=== PATIENT | female | born 1945 | race Caucasian/White ===

== ENCOUNTER 2017-12-09 12:31 | Emergency (ER) | payer MEDICARE ==
[~2017-12-09] VITALS: Ht 160 cm; Wt 87.1 kg
== END 2017-12-09 12:56 | disposition home or self-care (01) ==
LOC: FSED 12:31
DX: R39.15 Urgency of urination (principal); N30.90 Cystitis, unspecified without hematuria
CPT/HCPCS: 81003; 87086; 99283

== ENCOUNTER → 2018-03-12 | Outpatient (CLI) | payer MEDICARE, OTHER ==
--- NOTE | 2018-03-12 15:16 | Diagnostic Imaging Report ---
EXAMINATION: MRI of the lumbar spine without contrast HISTORY: Low back pain radiating to the right lower extremity for several weeks, status post fall COMPARISON: None. TECHNIQUE: Sagittal T1, T2, STIR; axial T2 and proton density. FINDINGS: It is assumed that there are 5 lumbar vertebrae. Curvature/Alignment: Normal lordosis. Subtle left-sided curvature. Vertebrae: No evidence of recent fracture, infection, or neoplasm. Chronic endplate degenerative changes from L1 to S1. Modic type I endplate degenerative changes with bone marrow edema on the right side at L3-L4. Conus: Normal, terminating at L1 Cauda equina: Circumferential narrowing of the thecal sac/cauda equina nerve roots at L3-L4 due to spinal stenosis. Lower thoracic: Mild degenerative changes without stenoses Paraspinal soft tissues: Severe atrophy of the paraspinal folds mainly from L2 through sacrum. Degenerative changes: L1-L2: Mild symmetric disc bulge and facet arthrosis. Mild left foraminal narrowing. L2-L3: Asymmetric to the right disc bulge and facet arthrosis. No significant stenoses L3-L4: Symmetric disc bulge, ligamenta flava thickening and facet processes. Arthroses with prominent osteophyte medial to the right facet, contributing to severe canal stenoses. Mild bilateral foraminal stenoses. L4-L5: Interbody and posterior fusion. Postsurgical decompressive laminotomies. No canal or foraminal stenoses. L5-S1: Interbody fusion. No canal or foraminal stenoses Sacroiliac joints: Mild degenerative changes bilaterally IMPRESSION: 1. Severe degenerative spinal canal and mild foraminal stenosis at L3-L4. 2. Solid interbody and posterior fusion at L4-L5 without stenosis. 3. Solid interbody fusion at L5-S1 without stenosis. 4. Modic Type 1 endplate degenerative changes with subchondral bone marrow edema on the right side at L3-L4. Signed by: Dr. Sally Bajwa M.D. on 03/12/2018 3:12 PM
--- NOTE | 2018-03-12 16:44 | Diagnostic Imaging Report ---
FINAL REPORT TECHNIQUE: Magnetic resonance imaging of the RIGHT HIP was performed WITHOUT injected contrast. Motion artifact partially limits sensitivity and specificity of the exam. The coronal STIR images are available through a web-based portal. HISTORY: Pain, fell COMPARISON: None available. FINDINGS: Metallic susceptibility artifacts and inhomogeneous fat saturation at the visualized lumbosacral spine, partially limits regional evaluation. Bone: The bone marrow signal is heterogeneous, compatible with red marrow conversion, no specific evidence of a focal bone marrow replacing abnormality. No osteonecrosis or acute fracture. Femoroacetabular Joint: Acetabular labrum: Focal contour irregularity, attenuation and detachment of the anterosuperior labrum; however, on the large [id number] images the changes appear similar of the left hip. Articular Cartilage: Low-grade erosion of the weightbearing cartilage. Muscle and tendons: The visualized tendons appear intact. Soft tissues: Otherwise, unremarkable. Other: Mild degenerative changes of the pubic symphysis. IMPRESSION: 1. No acute fracture. 2. Focal degenerative changes of the anterosuperior acetabular labrum; however, these changes appear similar on the contralateral left side on the large [id number] images. Therefore, this may reflect a chronic incidental finding. Signed by: Dr. Adelso John D.O., M.M.M. on 03/27/2018 3:15 PM
== END ==
LOC: MRI 09:37
PROVIDERS: ATTEND Family Medicine
DX: M25.551 Pain in right hip (principal); M47.817 Spondylosis without myelopathy or radiculopathy, lumbosacral region; M54.16 Radiculopathy, lumbar region
CPT/HCPCS: 72148

== ENCOUNTER 2018-11-07 20:55 | Emergency (ER) | payer MEDICARE, OTHER ==
[~2018-11-07] VITALS: Ht 160 cm; Wt 68.5 kg
--- OUTSIDE RECORDS SUMMARY | 2018-11-07 20:59 | XMS REPORT | Continuity of Care Document ---
Author Author Chandni tillman Organization Interface Address Unknown Phone Unavailable Problems Problem Status Onset Date Classification Date Reported Comments Source URINARY TRACT INFECTION, ALTERED MENTAL Active 04/20/2018 [facility] URINARY TRACT INFECTION Active 04/20/2018 [facility] L.EG PAIN Active 04/20/2018 [facility] Unspecified fracture of right ilium, initial encounter for closed fracture 04/05/2018 10/16/2018 [facility] FALL/HIP/BACK PAIN Active 03/15/2018 [facility] FX OF ILIAC CREST Active 03/15/2018 [facility] FX OF ILIAC CREST Active 03/15/2018 [facility] EGD / COLON Active 09/14/2017 [facility] Major depressive disorder, single episode, unspecified 06/30/2017 09/22/2017 [facility] Major depression 06/16/2017 09/22/2017 [facility] ALTER MENTAL STATUS Active 06/15/2017 [facility] Low back pain 06/10/2017 09/11/2017 [facility] Discharge Diagnosis: Chronic low back pain 06/05/2017 06/08/2017 [facility] Discharge Diagnosis: Fall from standing 06/05/2017 06/08/2017 [facility] Chronic low back pain 06/05/2017 09/11/2017 [facility] Fall from standing 06/05/2017 09/11/2017 [facility] FALL Active 06/05/2017 [facility] N63.0=UNSPECIFIED LUMP IN UNSPECIFIED B Active 03/27/2017 [facility] DX: MASS Active 01/20/2016 [facility] SCREENING Active 01/04/2016 [facility] N20.1; CALCULUS OF URETER Active 10/21/2015 [facility] Discharge Diagnosis: Calculus of kidney with calculus of ureter 10/19/2015 10/22/2015 [facility] CHEST PAIN Active 10/18/2015 [facility] 724.4 ACUTE LEFT LUMBAR RADICULOPATHY Active 12/19/2014 [facility] 723.4 ACUTE CERVICAL RADICULOPATHY Active 12/19/2014 [facility] 724.4 ACUTE CERVICAL RADICULOPATHY Active 12/19/2014 [facility] Cervical radiculopathy<sup>1</sup> Active 12/16/2014 Problem 09/22/2017 Data migrated from [employer] on 01/20/15. [facility], [facility] [place] Low back pain<sup>2</sup> Active 12/16/2014 Problem 09/22/2017 Data migrated from [employer] on 01/20/15. [facility], [facility] Lumbar radiculopathy<sup>3</sup> Active 12/16/2014 Problem 09/22/2017 Data migrated from [employer] on 01/20/15. [facility] OSTEPOROSIS Active 08/15/2014 [facility] UNK Active 06/27/2014 [facility] 564.00 V76.51 789.09 Active 06/27/2014 [facility] Discharge Diagnosis: Constipation 06/14/2014 06/16/2014 [facility] Discharge Diagnosis: Abdominal pain 06/14/2014 06/16/2014 [facility] SMALL BOWEL OBSTRUCTION Active 01/05/2014 [facility] ABDOMINAL PAIN Active 01/05/2014 [facility] Anxiety Active Problem 09/22/2017 [facility] Fibromyalgia Resolved Problem 09/22/2017 [facility] HLD - Hyperlipidemia Active Problem 09/22/2017 [facility] HTN - Hypertension Active Problem 09/22/2017 [facility] HYPERTENSION Resolved Problem 09/22/2017 [facility] Hypothyroidism Resolved Problem 09/22/2017 [facility] N&V - Nausea and vomiting Active Problem 09/22/2017 [facility] Obsessive compulsive behavior Resolved Problem 09/22/2017 [facility] OCD - Obsessive-compulsive disorder Active Problem 09/22/2017 [facility] Sleep apnea<sup>4</sup> Resolved Problem 09/22/2017 uses CPAP [facility] Dorsalgia, unspecified 09/22/2017 [facility] 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 09/22/2017 [facility] Simple obesity Active Problem 09/22/2017 [facility] Acute kidney failure, unspecified 10/16/2018 [facility] Major depressive disorder, recurrent, severe with psychotic symptoms 10/16/2018 [facility] Encephalopathy, unspecified 10/16/2018 [facility] Essential hypertension [facility]16[facility] Hypothyroidism, unspecified 10/16/2018 [facility] Encounter for immunization 10/16/2018 [facility] Hyperlipidemia, unspecified 10/16/2018 [facility] intermediate use of aspirin 10/16/2018 [facility] Anxiety disorder, unspecified 10/16/2018 [facility] Unspecified urinary incontinence 10/16/2018 [facility] History of falling 10/16/2018 [facility] Fall on same level from slipping, tripping and stumbling without subsequent striking against object, initial encounter 10/16/[facility] Contusion of right eyelid and periocular area, initial encounter 10/16/2018 [facility] Disorientation, unspecified 10/16/2018 [facility] Unspecified fall, initial encounter 10/16/2018 [facility] Obesity, unspecified 10/16/2018 [facility] Hypercalcemia 10/16/2018 [facility] Personal history of nicotine dependence 10/16/[facility] Obsessive-compulsive disorder, unspecified 10/16/2018 [facility] Obstructive sleep apnea (pediatric) 10/16/2018 [facility] Age-related osteoporosis without current pathological fracture 10/16/2018 [facility] Patient's noncompliance with other medical treatment and regimen 10/16/2018 [facility] Fibromyalgia Resolved Problem 10/16/2018 [facility] LEISA G[place],[facility] HLD - Hyperlipidemia Active Problem 10/16/2018 [facility]N - Hypertension Active Problem 10/16/2018 [facility] LEISA [place],[facility] HYPERTENSION Resolved Problem 10/16/2018 [facility] Hypothyroidism Resolved Problem 10/16/2018 [facility] Obsessive compulsive behavior Resolved Problem 10/16/2018 [facility] Sleep apnea<sup>1</sup> Resolved Problem 10/16/2018 uses CPAP [facility] INTESTINAL OBSTRUCT NOS Active [facility] CONSTIPATION NOS Active [facility] SCREEN MALIG NEOP-COLON Active [facility] ABDMNAL PAIN OTH SPCF ST Active [facility] OSTEOPOROSIS NOS Active [facility] LUMBOSACRAL NEURITIS NOS Active [facility] D72.829/N64.89 Active [facility] ELEVATED WHITE BLOOD CELL COUNT, UNSPECI Active [facility] OTHER SPECIFIED DISORDERS OF BREAST Active [facility] CALCULUS OF URETER Active [facility] MASTODYNIA Active [facility] HYPOTHYROIDISM, ENCOUNTER FOR SCREENING Active [facility] HYPOTHYROIDISM, UNSPECIFIED Active [facility] ENCOUNTER FOR SCREENING FOR DIABETES KIERAN Active [facility] UNSPECIFIED LUMP IN BREAST Active [facility] UNSPECIFIED LUMP IN UNSPECIFIED BREAST Active [facility] UNSP FRACTURE OF UNSP ILIUM, INIT ENCNTR Active [facility] URINARY TRACT INFECTION FOLLOWING INCOMP Active [facility] ALTERED MENTAL STATUS, UNSPECIFIED Active [facility] Medications Medication Details Route Status Patient Instructions Ordering Provider Order Date Source Lidocaine Hydrochloride 0.05 MG/MG Transdermal Patch [Lidoderm] 2 patch, TOP, Q24H, 0 Refill(s) No Longer Active 03/29/2018 [facility] meloxicam 7.5 mg oral tablet 7.5 mg=1 tab, PO, Daily No Longer Active 03/29/2018 [facility] melatonin 3 mg oral tablet 3 mg=1 tab, PO, Bedtime, PRN Insomnia, 0 Refill(s) No Longer Active 03/29/2018 [facility] Docusate Sodium 100 MG Oral Capsule 100 mg=1 cap, PO, BID, 0 Refill(s) Inactive 03/29/2018 [facility] Calcium Carbonate 1500 MG / Cholecalciferol 400 UNT Oral Tablet 1 tab, PO, BID, 0 Refill(s) No Longer Active 03/29/2018 [facility] Aspirin 81 MG Chewable Tablet 81 mg=1 tab, PO, Daily, 0 Refill(s) No Longer Active 03/29/2018 [facility] Acetaminophen 325 MG Oral Tablet 650 mg=2 tab, PO, BID, 0 Refill(s) Active 03/29/2018 [facility] DULoxetine 60 mg oral delayed release capsule 60 mg=1 cap, PO, BID, 0 Refill(s) No Longer Active 03/29/2018 [facility] atorvastatin 20 mg oral tablet 20 mg=1 tab, PO, Bedtime, # 30 tab, 0 Refill(s) No Longer Active 03/29/2018 [facility] sennosides, PRISON 8.6 MG Oral Tablet 17.2 mg=2 tab, PO, Q12H, 0 Refill(s) Inactive 03/29/2018 [facility] OLANZapine 10 mg intramuscular injection 2.5 mg, IM, Q8H, PRN Agitation, 0 Refill(s) No Longer Active 03/29/2018 [facility] pravastatin 20 mg oral tablet 40 mg=2 tab, PO, Bedtime, 0 Refill(s) Inactive 03/29/2018 [facility] ondansetron 2 mg/mL injectable solution 4 mg=2 mL, IVP, Q8H, PRN Nausea & Vomiting, 0 Refill(s) No Longer Active 03/29/2018 [facility] Oxycodone Hydrochloride 1 MG/ML Oral Solution 2.5 mg=2.5 mL, PO, Q6H, PRN Pain Score 7-10, 0 Refill(s) No Longer Active 03/29/2018 [facility] lisinopril 10 mg oral tablet 10 mg=1 tab, PO, Daily, 0 Refill(s) Active 03/29/2018 [facility] allopurinol 300 mg oral tablet 300 mg=1 tab, PO, Daily Active 03/29/2018 [facility] Hydrochlorothiazide 25 MG / valsartan 160 MG Oral Tablet 1 tab, PO, Daily Inactive 03/29/2018 [facility] DULoxetine 60 mg oral delayed release capsule 60 mg=1 cap, PO, BID, 0 Refill(s) Inactive 03/29/2018 [facility] Lisinopril 10 mg, 1 tab, Route: PO, Drug form: TAB, Daily, Dosing Weight 86.818, kg, Start date: 03/29/18 9:00:00 CDT, Duration: 30 day, Stop date: 04/27/18 9:00:00 CSTNotes: (Same as: Prinivil, Zestril) Inactive 03/29/2018 [facility] Zyprexa 2.5 mg, 1 tab, Route: PO, Drug form: TAB, Bedtime, Dosing Weight 86.818, kg, Start date: 03/28/18 21:00:00 CDT, Duration: 30 day, Stop date: 04/26/18 21:00:00 CSTNotes: (Same as: ZyPREXA) No Longer Active 03/29/2018 [facility] Lyrica 25 mg, Route: PO, Drug form: CAP, Q8H, Dosing Weight 86.818, kg, Start date: 03/27/18 0:00:00 CDT, Duration: 30 day, Stop date: 04/25/18 16:00:00 MANAGER LAB No Longer Active 03/27/2018 [facility] Lyrica 25 mg, 1 cap, Route: PO, Drug form: CAP, Q8Hnow, Dosing Weight 86.818, kg, Priority: NOW, Start date: 03/26/18 19:17:00 CDT, Duration: 30 day, Stop date: 04/25/18 11:17:00 CSTNotes: (Same as: Lyrica) No Longer Active 03/27/2018 [facility] Oxycodone Hydrochloride 1 MG/ML Oral Solution 2.5 mg, 2.5 mL, Route: PO, Drug form: LIQ, Q6H, Dosing Weight 86.818, kg, PRN Pain Score 7- 10, Start date: 03/26/18 14:27:00 CDT, Duration: 30 day, Stop date: 04/25/18 14:26:00 CSTNotes: (Same as: 'Roxicodone) No Longer Active 03/26/2018 [facility] tramadol hydrochloride 50 MG Oral Tablet [Ultram] 50 mg, 1 tab, Route: PO, Drug form: TAB, Q4H, Dosing Weight 86.818, kg, PRN Pain Score 6-10, Start date: 03/26/18 9:42:00 CDT, Duration: 30 day, Stop date: 04/25/18 9:41:00 MANAGER LAB Inactive 03/26/2018 [facility] Celebrex 200 mg, Route: PO, Drug form: CAP, BID, Dosing Weight 86.818, kg, Start date: 03/25/18 9:00:00 CDT, Duration: 30 day, Stop date: 04/23/18 17:00:00 MANAGER LAB Inactive 03/25/2018 [facility] ketOROLAC 15 mg/mL injectable solution 15 mg, 1 mL, Route: IVP, Drug form: INJ, Q6H, Dosing Weight 86.818, kg, PRN Pain Score 4-6, Start date: 03/25/18 7:55:00 CDT, Duration: 4 day, Stop date: 03/29/18 7:54:00 CDTNotes: (Same as:Toradol) IV bolus must be given >15 seconds. Give IM administration slowly and deeply into the muscle. Not for use > 4 days. No Longer Active 03/25/2018 [facility] Lidocaine 0.05 MG/MG Transdermal Patch 1 patch, Route: TOP, Daily, Drug form: FILM, Start date: 03/24/18 13:00:00 CDT, Duration: 1 doses or times, Stop date: 03/24/18 13:00:00 CDTNotes: Apply only once for up to 12 hours in a 24-hour period (12 hours on and 12 hours off). (Same as: Lidoderm) "Remove old patch before application of new patch" Inactive 03/24/2018 [facility] Haldol 2 mg, 0.4 mL, Route: IM, Drug form: INJ, ONCE, Dosing Weight 86.818, kg, Start date: 03/22/18 18:57:00 CDT, Stop date: 03/22/18 18:57:00 CDTNotes: (Same as: Haldol) Inactive 03/22/2018 [facility] duloxetine 60 mg, 1 cap, Route: PO, Drug form: DRC, BID, Dosing Weight 85.455, kg, Start date: 03/22/18 17:00:00 CDT, Stop date: 04/21/18 9:00:00 CSTNotes: (Same as: Cymbalta) (Do Not Crush) No Longer Active 03/22/2018 [facility] Acetaminophen 650 mg, 2 tab, Route: PO, Drug form: TAB, Q8H, Dosing Weight 87.273, kg, Start date: 03/22/18 16:00:00 CDT, Duration: 30 day, Stop date: 04/21/18 8:00:00 CSTNotes: Do not exceed 4 gm/day. (Same as: Tylenol) No Longer Active 03/22/2018 [facility] Zyprexa 2.5 mg, 1 tab, Route: PO, Drug form: TAB, Q12H, Dosing Weight 86.818, kg, Start date: 03/21/18 21:00:00 CDT, Duration: 30 day, Stop date: 04/20/18 9:00:00 CSTNotes: (Same as: ZyPREXA) No Longer Active 03/22/2018 [facility] NS 1,000 mL 1,000 mL, Rate: 75 ml/hr, Infuse over: 13.3 hr, Route: IV, Dosing Weight 86.818 kg, Total Volume: 1,000, Start date: 03/21/18 18:54:00 CDT, Duration: 30 day, Stop date: 04/20/18 18:53:00 MANAGER LAB, 1.99, m2 No Longer Active 03/21/2018 [facility] sterile water 2.1 mL, Route: MISC, Drug Form: INJ, Q8H, PRN Other -See Comment, Start date: 03/21/18 15:13:00 CDT, Duration: 30 day, Stop date: 04/20/18 15:12:00 CSTNotes: For reconstitution of drugs only No Longer Active 03/21/2018 [facility] Zyprexa 2.5 mg, Route: IM, Drug form: INJ, Q8H, Dosing Weight 86.818, kg, PRN Agitation, Start date: 03/21/18 14:36:00 CDT, Duration: 30 day, Stop date: 04/20/18 14:35:00 CSTNotes: (Same As: ZyPREXA IM). Recon stitute with 2.1 ml sterile water for injection; use within 1 hour after reconstitution. For IM use only; do not administer IV or SUB-Q. No Longer Active 03/21/2018 [facility] Haldol 2 mg, 0.4 mL, Route: IM, Drug form: INJ, ONCE, Dosing Weight 86.818, kg, Start date: 03/21/18 13:23:00 CDT, Stop date: 03/21/18 13:23:00 CDTNotes: (Same as: Haldol) Inactive 03/21/2018 [facility] Risperidone 1 mg, 1 tab, Route: PO, Drug form: TAB, ONCE, Dosing Weight 86.818, kg, Start date: 03/21/18 13:12:00 CDT, Stop date: 03/21/18 13:12:00 CDTNotes: (Same as: Risperdal) Inactive 03/21/2018 [facility] Miralax 17 gm, Route: PO, Daily, Dosing Weight 86.818, kg, Start date: 03/21/18 9:00:00 CDT, Duration: 30 day, Stop date: 04/19/18 9:00:00 MANAGER LAB No Longer Active 03/21/2018 [facility] sennosides, PRISON 17.2 mg, 2 tab, Route: PO, Drug Form: TAB, Dosing Weight 86.818, kg, Q12H, Start date: 03/20/18 21:00:00 CDT, Duration: 30 day, Stop date: 04/19/18 9:00:00 CSTNotes: (Same as: Senokot) No Longer Active 03/21/2018 [facility] Tramadol 50 mg, Route: PO, Drug form: TAB, Q12H, Dosing Weight 85.455, kg, Start date: 03/20/18 21:00:00 CDT, Duration: 30 day, Stop date: 04/19/18 9:00:00 MANAGER LAB Inactive 03/21/2018 [facility] tramadol hydrochloride 50 MG Oral Tablet 50 mg, 1 tab, Route: PO, Drug form: TAB, Q6H, Dosing Weight 86.818, kg, PRN Pain Score 4-6, Start date: 03/20/18 15:29:00 CDT, Duration: 30 day, Stop date: 04/19/18 15:28:00 CSTNotes: Not to exceed 400mg/day. (Same As: Ultram) No Longer Active 03/20/2018 [facility] tramadol hydrochloride 50 MG Oral Tablet 100 mg, Route: PO, Drug form: TAB, Q6H, Dosing Weight 86.818, kg, PRN Pain Score 4-6, Start date: 03/20/18 14:21:00 CDT, Duration: 30 day, Stop date: 04/19/18 14:20:00 MANAGER LAB Inactive 03/20/2018 [facility] NS (Bolus) IV 250 mL, 250 ml/hr, Infuse Over: 1 hr, Route: IV, 250, Drug form: INJ, ONCE, Priority: STAT, Dosing Weight 86.818 kg, Start date: 03/20/18 12:28:00 CDT, Stop date: 03/20/18 12:28:00 CDT Inactive 03/20/2018 [facility] Tramadol 50 mg, 1 tab, Route: PO, Drug form: TAB, Q12H, Dosing Weight 85.455, kg, Start date: 03/20/18 9:00:00 CDT, Duration: 30 day, Stop date: 04/18/18 21:00:00 CSTNotes: Not to exceed 400mg/day. (Same As: Ultram) Inactive 03/20/2018 [facility] POLYETHYLENE GLYCOL 3350 17 gm, 1 pkt, Route: PO, Drug form: PWDR, Daily, Dosing Weight 87.273, kg, Start date: 03/18/18 9:00:00 CDT, Duration: 30 day, Stop date: 04/16/18 9:00:00 CSTNotes: Dissolve in 8 oz of water or juice. (Same as: Miralax) No Longer Active 03/18/2018 [facility] remove patch 2 patch, Route: TOP, Q24H, Drug form: ERFILM, Start date: 03/17/18 23:00:00 CDT, Duration: 30 day, Stop date: 04/15/18 23:00:00 CSTNotes: Remove patch 12 hours after application each day. No Longer Active 03/18/2018 [facility] Docusate 100 mg, Route: PO, BID, Dosing Weight 87.273, kg, Start date: 03/17/18 17:00:00 CDT, Duration: 30 day, Stop date: 04/16/18 9:00:00 MANAGER LAB Inactive 03/17/2018 [facility] Acetaminophen 1,000 mg, 2 tab, Route: PO, Drug form: TAB, Q6Hnow, Dosing Weight 87.273, kg, Start date: 03/17/18 11:00:00 CDT, Duration: 30 day, Stop date: 04/16/18 5:00:00 CSTNotes: Max acetaminophen 4000 mg/day (4 gm/day). (Same as: Tylenol Extra Strength) No Longer Active 03/17/2018 [facility] Lidocaine Hydrochloride 0.05 MG/MG Transdermal Patch [Lidoderm] 2 patch, Route: TOP, Q24H, Drug form: FILM, Start date: 03/17/18 11:00:00 CDT, Duration: 30 day, Stop date: 04/15/18 11:00:00 CSTNotes: Apply only once for up to 12 hours in a 24-hour period (12 hours on and 12 hours off). (Same as: Lidoderm) "Remove old patch before application of new patch" No Longer Active 03/17/2018 [facility] Naproxen 500 mg, 1 tab, Route: PO, Drug form: TAB, [id number], Dosing Weight 87.273, kg, Start date: 03/17/18 11:00:00 CDT, Duration: 30 day, Stop date: 04/15/18 23:00:00 CSTNotes: (Same as: Naprosyn) Take with food. No Longer Active 03/17/2018 [facility] Oxycodone Hydrochloride 5 MG Oral Tablet 5 mg, Route: PO, Drug form: TAB, Q4H, Dosing Weight 87.273, kg, PRN Pain Score 4-6, Start date: 03/17/18 10:58:00 CDT, Duration: 30 day, Stop date: 04/16/18 10:57:00 MANAGER LAB Inactive 03/17/2018 [facility] Oxycodone Hydrochloride 1 MG/ML Oral Solution 10 mg, 2 tab, Route: PO, Drug form: TAB, Q4H, Dosing Weight 87.273, kg, PRN Pain Score 7- 10, Start date: 03/17/18 10:58:00 CDT, Duration: 30 day, Stop date: 04/16/18 10:57:00 CSTNotes: (Same as: Roxicodone) No Longer Active 03/17/2018 [facility] sennosides, PRISON 17.2 mg, 2 tab, Route: PO, Drug Form: TAB, Dosing Weight 85.455, kg, Bedtime, Start date: 03/16/18 21:00:00 CDT, Duration: 30 day, Stop date: 04/14/18 21:00:00 CSTNotes: (Same as: Senokot) No Longer Active 03/17/2018 [facility] Pravastatin 40 mg, 2 tab, Route: PO, Drug form: TAB, Bedtime, Dosing Weight 85.455, kg, Start date: 03/16/18 21:00:00 CDT, Duration: 30 day, Stop date: 04/14/18 21:00:00 CSTNotes: (Same as: Pravachol) No Longer Active 03/17/2018 [facility] Risperdal 0.5 mg, 1 tab, Route: PO, Drug form: TAB, QPM, Dosing Weight 85.455, kg, Start date: 03/16/18 17:00:00 CDT, Duration: 30 day, Stop date: 04/14/18 17:00:00 CSTNotes: (Same as: Risperdal) No Longer Active 03/16/2018 [facility] Calcium Carbonate 1500 MG / Cholecalciferol 400 UNT Oral Tablet 1 tab, Route: PO, Drug Form: TAB, Dosing Weight 87.273, kg, BID, Start date: 03/16/18 9:00:00 CDT, Duration: 30 day, Stop date: 04/14/18 17:00:00 CSTNotes: (calcium carbonate-vit D 500mg-400unit TAB) Same as: Oyster-D, OsCal-D No Longer Active 03/16/2018 [facility] Docusate 100 mg, 1 cap, Route: PO, Drug form: CAP, BID, Dosing Weight 85.455, kg, Start date: 03/16/18 9:00:00 CDT, Duration: 30 day, Stop date: 04/14/18 17:00:00 CSTNotes: (Same as: Colace) (Do Not Crush) No Longer Active 03/16/2018 [facility] duloxetine 60 mg, 1 cap, Route: PO, Drug form: DRC, Daily, Dosing Weight 85.455, kg, Start date: 03/16/18 9:00:00 CDT, Duration: 30 day, Stop date: 04/14/18 9:00:00 CSTNotes: (Same as: Cymbalta) (Do Not Crush) No Longer Active 03/16/2018 [facility] cyclobenzaprine 10 mg, 1 tab, Route: PO, Drug form: TAB, Daily, Dosing Weight 85.455, kg, Start date: 03/16/18 9:00:00 CDT, Duration: 30 day, Stop date: 04/14/18 9:00:00 CSTNotes: (Same As: Flexeril) No Longer Active 03/16/2018 [facility] Aspirin 81 MG Chewable Tablet 81 mg, 1 tab, Route: PO, Drug form: CHEWTAB, Daily, Dosing Weight 85.455, kg, Start date: 03/16/18 9:00:00 CDT, Duration: 30 day, Stop date: 04/14/18 9:00:00 CSTNotes: Take with food. No Longer Active 03/16/2018 [facility] Thyroxine 50 microgram, 1 tab, Route: PO, Drug form: TAB, [id number], Dosing Weight 85.455, kg, Start date: 03/16/18 6:30:00 CDT, Duration: 30 day, Stop date: 04/14/18 6:30:00 CSTNotes: Take 1 hour before or 2 hours after meal; Enteral feeds may interefere with the absorption of this medication.(Same as:Levothroid, Synthroid) No Longer Active 03/16/2018 [facility] Tramadol 100 mg, 2 tab, Route: PO, Drug form: TAB, Q6H, Dosing Weight 85.455, kg, Start date: 03/16/18 0:00:00 CDT, Duration: 30 day, Stop date: 04/14/18 18:00:00 CSTNotes: Not to exceed 400mg/day. (Same As: Ultram) No Longer Active 03/16/2018 [facility] Acetaminophen 1,000 mg, 2 tab, Route: PO, Drug form: TAB, Q6Hnow, Dosing Weight 85.455, kg, Start date: 03/15/18 23:00:00 CDT, Duration: 30 day, Stop date: 04/14/18 17:00:00 CSTNotes: Max acetaminophen 4000 mg/day (4 gm/day). (Same as: Tylenol Extra Strength) No Longer Active 03/16/2018 [facility] Enoxaparin 40 mg, 0.4 mL, Route: SUB-Q, Drug form: INJ, [id number], Dosing Weight 85.455, kg, Start date: 03/15/18 23:00:00 CDT, Stop date: 04/13/18 23:00:00 CSTNotes: (Same as: Lovenox) No Longer Active 03/16/2018 [facility] Oxycodone Hydrochloride 5 MG Oral Tablet 5 mg, 1 tab, Route: PO, Drug form: TAB, Q4H, Dosing Weight 85.455, kg, PRN Pain Score 4-6, Start date: 03/15/18 22:29:00 CDT, Duration: 30 day, Stop date: 04/14/18 22:28:00 CSTNotes: (Same as: Roxicodone) No Longer Active 03/16/2018 [facility] Melatonin 3 mg, 1 tab, Route: PO, Drug form: TAB, Bedtime, Dosing Weight 85.455, kg, PRN Insomnia, Start date: 03/15/18 22:18:00 CDT, Duration: 30 day, Stop date: 04/14/18 22:17:00 CSTNotes: (Same as: Melatonin) No Longer Active 03/16/2018 [facility] Ondansetron 4 mg, 2 mL, Route: IVP, Drug form: INJ, Q8H, Dosing Weight 85.455, kg, PRN Nausea & Vomiting, Start date: 03/15/18 22:18:00 CDT, Duration: 30 day, Stop date: 04/14/18 22:17:00 CSTNotes: (Same as: Zofran) MEDICATION WASTE Product Size: 4 mg Product Wasted: ___ mg No Longer Active 03/16/2018 [facility] Dextrose 50% Syringe 12.5 gm, 25 mL, Route: IVP, Drug Form: INJ, Dosing Weight 85.455, kg, PRN, PRN Blood Glucose Results, Start date: 03/15/18 22:18:00 CDT, Duration: 30 day, Stop date: 04/14/18 21:17:00 MANAGER LAB No Longer Active 03/16/2018 [facility] Glucagon 1 mg, Route: IM, Drug form: PDR/INJ, PRN, Dosing Weight 85.455, kg, PRN Blood Glucose Results, Start date: 03/15/18 22:18:00 CDT, Duration: 30 day, Stop date: 04/14/18 21:17:00 MANAGER LAB No Longer Active 03/16/2018 [facility] Hydromorphone 1 mg, Route: IVP, ONCE, Dosing Weight 85.455, kg, Priority: STAT, Start date: 03/15/18 20:51:00 CDT, Stop date: 03/15/18 20:51:00 CDT Inactive 03/16/2018 [facility] iodixanol 100 mL, Route: IVP, Drug Form: SOLN, Dosing Weight 85.455, kg, ONCALL, STAT, Start date: 03/15/18 17:54:00 CDT, Duration: 1 doses or times, Dose=2.2ml/kg, Max afcn=[id number] -- "To be infused by Radiology Staff ONLY" Inactive 03/15/2018 [facility] Ondansetron 4 MG Oral Tablet [Zofran] 4 mg=1 tab, PO, Q6H, PRN Nausea/Vomiting, X 8 day, # 30 tab, 0 Refill(s) Active 10/19/2015 [facility] naproxen 500 mg oral tablet 500 mg=1 tab, PO, BID, PRN Pain, # 30 tab, 0 Refill(s) Active 10/19/2015 [facility] Tamsulosin hydrochloride 0.4 MG Oral Capsule [Flomax] =1 tab, PO, Daily, # 14 tab, 0 Refill(s) Active 10/19/2015 [facility] Ketorolac 15 mg, Route: IVP, Drug form: INJ, ONCE, Dosing Weight 95.455, kg, Priority: STAT, Start date: 10/19/15 1:45:00 CDT, Stop date: 10/19/15 1:45:00 CDT Inactive 10/19/2015 [facility] Dilaudid 0.5 mg, Route: IVP, ONCE, Dosing Weight 95.455, kg, Priority: STAT, Start date: 10/18/15 23:16:00 CDT, Stop date: 10/18/15 23:16:00 CDT Inactive 10/19/2015 [facility] Ondansetron 4 mg, Route: IVP, Drug form: INJ, ONCE, Dosing Weight 95.455, kg, Priority: STAT, Start date: 10/18/15 22:37:00 CDT, Stop date: 10/18/15 22:37:00 CDT Inactive 10/19/2015 [facility] Morphine 4 mg, Route: IVP, Drug form: INJ, ONCE, Dosing Weight 95.455, kg, Priority: STAT, Start date: 10/18/15 22:37:00 CDT, Stop date: 10/18/15 22:37:00 CDT Inactive 10/19/2015 [facility] Famotidine 20 mg, 2 mL, Route: IVP, Drug form: INJ, ONCE, Dosing Weight 95.455, kg, Priority: STAT, Start date: 10/18/15 22:29:00 CDT, Stop date: 10/18/15 22:29:00 CDTNotes: (Same as: Pepcid) Can be dilute in 5-10cc NS IVP: Slow IV push over at least 2 minutes. Inactive 10/19/2015 [facility] Morphine 4 mg, 2 mL, Route: IVP, Drug form: INJ, ONCE, Dosing Weight 95.455, kg, Priority: STAT, Start date: 10/18/15 22:29:00 CDT, Stop date: 10/18/15 22:29:00 CDTNotes: (Same as:MORPhine Sulfate) Inactive 10/19/2015 [facility] Sodium Chloride 0.154 MEQ/ML Injectable Solution 1,000 mL, Rate: 125 ml/hr, Infuse over: 8 hr, Route: IV, Dosing Weight 95.455 kg, Total Volume: 1,000, Start date: 10/18/15 22:29:00 CDT, Duration: 30 day, Stop date: 11/17/15 22:28:00 CDT No Longer Active 10/19/2015 [facility] Saline Flush 0.9% 10 mL, Route: IVP, Drug Form: INJ, Dosing Weight 95.455, kg, PRN, PRN Line Flush, Start date: 10/18/15 22:29:00 CDT, Duration: 30 day, Stop date: 11/17/15 22:28:00 CDTNotes: (Same as: BD Posiflush) No Longer Active 10/19/2015 [facility] Flumazenil 0.2 mg, 2 mL, Route: IVP, Drug form: INJ, PRN, Dosing Weight 81.818, kg, PRN Other -See Comment, Start date: 07/11/14 8:56:00, Duration: 1 doses or times, Stop date: Limited # of timesNotes: (Same as: Romazicon) Inactive 07/11/2014 [facility] Naloxone 0.1 mg, 0.25 mL, Route: IVP, Drug form: INJ, Q2MIN, Dosing Weight 81.818, kg, PRN Narcotic Reversal, Start date: 07/11/14 8:56:00, Duration: 4 doses or times, Stop date: Limited # of timesNotes: Same as Narcan Inactive 07/11/2014 [facility] Sodium Chloride 0.154 MEQ/ML Injectable Solution 500 mL, Rate: 25 ml/hr, Infuse over: 20 hr, Route: IV, Dosing Weight 81.818 kg, Total Volume: 500, Start date: 07/11/14 7:40:00, Duration: 30 day, Stop date: 08/10/14 7:39:00 Inactive 07/11/2014 [facility] DULoxetine 60 mg oral delayed release capsule 60 mg=1 cap, PO, Daily, # 30 cap, 0 Refill(s) Active 2014 [facility] cyclobenzaprine 10 mg oral tablet 10 mg=1 tab, PO, Daily, 0 Refill(s) Active 2014 [facility] pravastatin 40 mg oral tablet 40 mg=1 tab, PO, Bedtime, # 30 tab, 0 Refill(s) Active 2014 [facility] gabapentin 300 MG Oral Capsule 300 mg=1 cap, PO, Daily, 0 Refill(s) Active 2014 [facility] POLYETHYLENE GLYCOL 3350 142 MG/ML Oral Solution [Miralax] 17 gm, PO, Daily, # 527 gm, 0 Refill(s) Active 06/14/2014 [facility] magnesium citrate 8.85% oral liquid 8.725 pt=633 ml, PO, ONCE, # 300 ml, 0 Refill(s) Active 06/14/2014 [facility] Sodium Chloride 0.154 MEQ/ML Injectable Solution 1,000 mL, 1,000 ml/hr, Infuse Over: 1 hr, Route: IV, 1,000, Drug form: INJ, ONCE, Priority: STAT, Dosing Weight 80.909 kg, Start date: 06/14/14 13:53:00, Duration: 1 doses or times, Stop date: 06/14/14 13:53:00 Inactive 06/14/2014 [facility] Ondansetron 4 mg, Route: IVP, Drug form: INJ, ONCE, Dosing Weight 80.909, kg, Priority: STAT, Start date: 06/14/14 10:28:00, Stop date: 06/14/14 10:28:00 Inactive 06/14/2014 [facility] Sodium Chloride 0.154 MEQ/ML Injectable Solution 500 mL, 500 ml/hr, Infuse Over: 1 hr, Route: IV, 500, Drug form: INJ, ONCE, Priority: STAT, Dosing Weight 80.909 kg, Start date: 06/14/14 10:28:00, Duration: 1 doses or times, Stop date: 06/14/14 10:28:00 Inactive 06/14/2014 [facility] Hydromorphone 1 mg, Route: IVP, ONCE, Dosing Weight 80.909, kg, Priority: STAT, Start date: 06/14/14 10:28:00, Stop date: 06/14/14 10:28:00 Inactive 06/14/2014 [facility] Paxil 40 mg, 2 tab, Route: PO, Drug form: TAB, Bedtime, Dosing Weight 77.273, kg, Start date: 01/09/14 21:00:00, Duration: 30 day, Stop date: 02/07/14 21:00:00Notes: (Same as: Paxil) Inactive 01/10/2014 [facility] Potassium Chloride 20 mEq, 1 tab, Route: PO, Drug form: ERTAB, ONCE, Dosing Weight 77.273, kg, Start date: 01/08/14 7:07:00, Stop date: 01/08/14 7:07:00Notes: (Same as: K-Dur 20) "Do Not Crush" With food and full glass of water Inactive 01/08/2014 [facility] phenol 1 spray, Route: TOP, Q2H, Drug form: SPRY, PRN Sore Throat, Start date: 01/07/14 18:53:00, Duration: 30 day, Stop date: 02/06/14 18:52:00 No Longer Active 01/07/2014 [facility] Crestor 40 mg, 4 tab, Route: PO, Drug form: TAB, Daily, Dosing Weight 77.273, kg, Start date: 01/07/14 9:00:00, Duration: 30 day, Stop date: 02/05/14 9:00:00Notes: (Same As: Crestor) No Longer Active 01/07/2014 [facility] Paxil 40 mg, Route: PO, Drug form: TAB, Daily, Dosing Weight 77.273, kg, Start date: 01/07/14 9:00:00, Duration: 30 day, Stop date: 02/05/14 9:00:00 No Longer Active 01/07/2014 [facility] Lisinopril 10 mg, 1 tab, Route: PO, Drug form: TAB, Daily, Dosing Weight 77.273, kg, Start date: 01/07/14 9:00:00, Duration: 30 day, Stop date: 02/05/14 9:00:00Notes: (Same as: Prinivil, Zestril) No Longer Active 01/07/2014 [facility] Thyroxine 0.05 mg, Route: PO, Drug form: TAB, Daily, Dosing Weight 77.273, kg, Start date: 01/07/14 9:00:00, Duration: 30 day, Stop date: 02/05/14 9:00:00 No Longer Active 01/07/2014 [facility] Hydrochlorothiazide 25 MG / Lisinopril 20 MG Oral Tablet 1 tab, Route: PO, Drug Form: TAB, Dosing Weight 77.273, kg, Daily, Start date: 01/07/14 9:00:00, Duration: 30 day, Stop date: 02/05/14 9:00:00 No Longer Active 01/07/2014 [facility] Evoxac 30 mg, 1 cap, Route: PO, Drug form: CAP, Daily, Dosing Weight 77.273, kg, Start date: 01/07/14 9:00:00, Duration: 30 day, Stop date: 02/05/14 9:00:00Notes: Non-Formulary Drug. (Same As: Evoxac) No Longer Active 01/07/2014 [facility] Synthroid 50 microgram, 1 tab, Route: PO, Drug form: TAB, Q630AM, Dosing Weight 77.273, kg, Start date: 01/07/14 6:30:00, Duration: 30 day, Stop date: 02/05/14 6:30:00Notes: Take 1 hour before or 2 hours after meal; Enteral feeds may interefere with the absorption of this medication.(Same as:Levothroid, Synthroid) No Longer Active 01/07/2014 [facility] Tramadol 50 mg, PO, Q4-6H, Pain, # 20 tab, 0 Refill(s) Active 01/06/2014 [facility] Aspirin 81 MG Chewable Tablet 81 mg, 1 tab, Route: PO, Drug form: CHEWTAB, Daily, Dosing Weight 77.273, kg, Start date: 01/06/14 13:00:00, Duration: 30 day, Stop date: 02/05/14 9:00:00Notes: Take with food. No Longer Active 01/06/2014 [facility] Saline Flush 0.9% 5 ml, Route: IVP, Drug Form: INJ, Dosing Weight 77.273, kg, PRN, PRN Line Flush, Start date: 01/06/14 4:36:00, Duration: 30 day, Stop date: 02/05/14 4:35:00Notes: (Same as: BD Posiflush) No Longer Active 01/06/2014 [facility] Morphine 4 mg, 2 mL, Route: IVP, Drug form: INJ, Q3H, Dosing Weight 77.273, kg, PRN Pain Score 7-10, Start date: 01/06/14 4:36:00, Duration: 30 day, Stop date: 02/05/14 4:35:00Notes: (Same as:MORPhine Sulfate) No Longer Active 01/06/2014 [facility] Ondansetron 4 mg, 2 mL, Route: IVP, Drug form: INJ, Q8H, Dosing Weight 77.273, kg, PRN Nausea & Vomiting, Start date: 01/06/14 4:36:00, Duration: 30 day, Stop date: 02/05/14 4:35:00Notes: (Same as: Zofran) No Longer Active 01/06/2014 [facility] Sodium Chloride 0.154 MEQ/ML Injectable Solution 1,000 mL, Rate: 125 ml/hr, Infuse over: 8 hr, Route: IV, Dosing Weight 77.273 kg, Total Volume: 1,000, Start date: 01/06/14 4:36:00, Duration: 30 day, Stop date: 02/05/14 4:35:00 No Longer Active 01/06/2014 [facility] Zosyn 3.375 gm, Route: IVPB, Drug form: PDR/INJ, ONCE, Dosing Weight 77.273, kg, Priority: STAT, Start date: 01/06/14 1:27:00, Stop date: 01/06/14 1:27:00 Inactive 01/06/2014 [facility] Zofran 4 mg, 2 mL, Route: IVP, Drug form: INJ, ONCE, Dosing Weight 77.273, kg, Priority: STAT, Start date: 01/05/14 22:35:00, Stop date: 01/05/14 22:35:00Notes: (Same as: Zofran) No Longer Active 01/06/2014 [facility] Morphine 4 mg, 2 mL, Route: IVP, Drug form: INJ, ONCE, Dosing Weight 77.273, kg, Priority: STAT, Start date: 01/05/14 22:35:00, Stop date: 01/05/14 22:35:00Notes: (Same as:MORPhine Sulfate) No Longer Active 01/06/2014 [facility] Ondansetron 4 mg, 2 mL, Route: IVP, Drug form: INJ, ONCE, Dosing Weight 77.273, kg, Priority: STAT, Start date: 01/05/14 21:37:00, Stop date: 01/05/14 21:37:00Notes: (Same as: Zofran) Inactive 01/06/2014 [facility] pantoprazole 40 mg, Route: IVP, Drug form: INJ, ONCE, Dosing Weight 77.273, kg, For IV push reconstitute with 10 ml 0.9% sodium chloride and push over at least 3 minutes, Priority: STAT, Start date: 01/05/14 21:37:00, Stop date: 01/05/14 21:37:00Notes: For IV push reconstitute with 10 ml 0.9% sodium chloride and push over 2 minutes. (Same as: Protonix) Inactive 01/06/2014 [facility] Morphine 6 mg, 3 mL, Route: IVP, Drug form: INJ, ONCE, Dosing Weight 77.273, kg, Priority: STAT, Start date: 01/05/14 21:37:00, Stop date: 01/05/14 21:37:00Notes: (Same as:MORPhine Sulfate) Inactive 01/06/2014 [facility] Sodium Chloride 0.154 MEQ/ML Injectable Solution 1,000 mL, 1000 ml/hr, Infuse Over: 1 hr, Route: IV, 1,000, Drug form: INJ, ONCE, Priority: STAT, Dosing Weight 77.273 kg, Start date: 01/05/14 21:37:00, Duration: 1 doses or times, Stop date: 01/05/14 21:37:00 Inactive 01/06/2014 [facility] Saline Flush 0.9% 5 mL, Route: IVP, Drug Form: INJ, Dosing Weight 77.273, kg, PRN, PRN Line Flush, Start date: 01/05/14 21:37:00, Duration: 24 hr, Stop date: 01/06/14 21:36:00Notes: Same as: BD Posiflush Sterile No Longer Active 01/06/2014 [facility] Allergies, Adverse Reactions, Alerts Substance Category Reaction Severity Reaction type Status Date Reported Comments Source gabapentin<sup>1</sup> Assertion Drug allergy Active 12/16/2014 Data migrated from MMIS on 01/19/15. Originally documented as NEURONTIN. [facility] traMADol<sup>2</sup> Assertion Drug allergy Active confusion [facility] Immunizations Immunization Date Given Site Status Last Updated Comments Source influenza virus vaccine, inactivated 03/29/2018 [facility] pneumococcal 13-valent vaccine 03/29/2018 [facility] pneumococcal 23-valent vaccine 11/12/2010 Left deltoid completed [place] [facility] pneumococcal 23-valent vaccine 11/12/2010 Left deltoid completed [place] [facility] pneumococcal 23-valent vaccine 11/12/2010 Left deltoid completed [facility] [place] pneumococcal 23-valent vaccine 11/12/2010 Left deltoid completed [facility] Results Order Name Results Value Reference Range Date Interpretation Comments Source Chest 1view DX Chest 1view DX Clinical Indication:72 years Female with - AMS Comparison: Chest x-ray 03/26/2018 FINDINGS: Lines: None. The single frontal chest radiograph shows normal lung volumes. No interstitial or airspace opacities. Elevated right hemidiaphragm. No pleural effusion. No pneumothorax. Cardiac silhouette is normal. Pulmonary vasculature is normal. The trachea is midline. There are no acute osseous abnormalities noted. IMPRESSION: No acute cardiopulmonary abnormality. 04/20/2018 - - Read by: Endy Piña MD Dictated Date/time: 04/20/18 12:58 Electronically Signed by: Endy Piña MD 04/20/18 12:59 FINAL REPORT [facility] ED Abdomen/Pelvis IV contrast only CT ED Abdomen/Pelvis IV contrast only CT Clinical Indication: - diarrhea, lower back pain and L hip pain s/p fall, bilateral leg pain, worse on the right most recent; fall to the floor yesterday and left hip pain Comparison: None TECHNIQUE: Helical imaging was performed diaphragm through the symphysis with multiplanar reformations obtained. IV CONTRAST: 100cc Omnipaque 300 GI CONTRAST: None CT Radiation Dose: YPP=5653 mGy-cm FINDINGS: LOWER CHEST: The lung bases are clear. SOLID ORGANS: The liver is diffusely hypoattenuating when compared to the spleen. Subcentimeter hypodensities in the bilateral kidneys are too small to further characterize, but are likely benign. The liver, gallbladder, spleen, pancreas, adrenal glands and kidneys are otherwise normal. BOWEL: Status post remote partial subtotal hemicolectomy with intact suture in the rectum. PERITONEUM: No free intraperitoneal fluid or air. RETROPERITONEUM: No adenopathy. The aorta and its major branches are without aneurysmal dilation. There is severe narrowing of the origin of the celiac axis. PELVIS: No pelvic mass. The urinary bladder is normal. MUSCULOSKELETAL: The skeleton is intact. Status post posterior instrumentation and fixation at L4/L5. IMPRESSION: 1. No acute abdominal/pelvic abnormalities. 2. Diffuse hepatic steatosis. 3. 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 SL: ALEN 04/20/2018 - - Read by: Dontae Davey MD Dictated Date/time: 04/20/18 15:40 Electronically Signed by: Dontae Davey MD 04/20/18 15:50 FINAL REPORT [facility] Brain wo contrast CT Brain wo contrast CT Patient Name: FREDA CHAU : 1945. Age: 72 years. Gender: Female. MR: [id number]. Location[facility]. Provider: Brooke Butler MD. EXAM: Brain wo contrast CT. 04/20/2018 12:36 PM MANAGER LAB PROVIDED CLINICAL HISTORY: Altered mental status. TECHNIQUE: Contiguous axial images from the skull base to the vertex without intravenous contrast. Coronal and sagittal reformats. EXPOSURE: Total exam DLP is 902 mGy-cm. COMPARISON: CT Brain performed 03/20/2018. FINDINGS: BRAIN: -- Mild-moderate diffuse supratentorial subcortical, periventricular, and deep white matter hypoattenuation, most consistent with chronic microangiopathic ischemic disease, which can obscure subtle non-hemorrhagic ischemic changes. -- No acute transcortical infarct. No brain parenchymal contusion or edema. No intracranial hemorrhage or other fluid collection. No intracranial mass. Age-consistent brain parenchymal volume. VENTRICLES / CISTERNS / SHIFT: No hydrocephalus. No significant effacement of the basal cisterns or foramen magnum. No significant midline shift. BONES / SCALP: No significant extracranial soft tissue abnormality. No acute depressed fracture of the calvarium or skull base. No aggressive bone lesions. IMAGED SINUSES / MASTOIDS / MISC: Occlusion of a few nasoethmoid air cells from chronic mucosal inflammation and/or polyps. No significant paranasal sinus fluid. No significant fluid in the imaged mastoid air cells or pneumatized petrous apices. IMPRESSION: 1. No acute intracranial abnormality. 2. Chronic microangiopathic ischemic gliosis. 3. No significant interval change of the intracranial findings. SL: [id number] 04/20/2018 - - Read by: Scar Menon MD Dictated Date/time: 04/20/18 15:30 Electronically Signed by: Scar Menon MD 04/20/18 15:36 FINAL REPORT [facility] URINE AND STOOL UA Renal Epi RARE <=0 03/29/2018 [facility] URINE AND STOOL UA Urobilinogen <=1.0 mg/dL 0.1 - 1.0 03/29/2018 [facility] URINE AND STOOL UA Mucus Few /LPF None Seen /LPF 03/29/2018 [facility] URINE AND STOOL UA Amorph Shira Occasional /HPF None Seen /HPF 03/29/2018 [facility] URINE AND STOOL UA Hyal Cast 5 /LPF 0 - 2 03/29/2018 [facility] URINE AND STOOL UA RBC null 0 - 2 03/29/2018 [facility] URINE AND STOOL UA Leuk Est Negative (03/29/18 12:47 PM) Negative 03/29/2018 [facility] URINE AND STOOL UA WBC null 0 - 5 03/29/2018 [facility] URINE AND STOOL UA Sq Epi Few /LPF Few /LPF 03/29/2018 [facility] URINE AND STOOL UA Nitrite Negative (03/29/18 12:47 PM) Negative 03/29/2018 [facility] URINE AND STOOL UA Blood Negative (03/29/18 12:47 PM) Negative 03/29/2018 [facility] URINE AND STOOL UA Ketones Negative mg/dL Negative mg/dL 03/29/2018 [facility] URINE AND STOOL UA Bili Negative *NA* (03/29/18 12:47 PM) Negative 03/29/2018 [facility] URINE AND STOOL UA Glucose Negative mg/dL Negative mg/dL 03/29/2018 [facility] URINE AND STOOL UA pH 7.5 5.0 - 8.0 03/29/2018 [facility] URINE AND STOOL UA Protein 10 mg/dL Negative mg/dL 03/29/2018 [facility] URINE AND STOOL UA Spec Grav 1.015 <=1.030 03/29/2018 [facility] URINE AND STOOL UA Turbidity Slight *ABN* (03/29/18 12:47 PM) Clear 03/29/2018 [facility] URINE AND STOOL UA Color Yellow *NA* (03/29/18 12:47 PM) Yellow 03/29/2018 [facility] CHEM PANEL Phosphorus 3.1 mg/dL 2.5 - 4.5 03/29/2018 [facility] CHEM PANEL Magnesium Lvl 1.4 mg/dL 1.8 - 2.4 03/29/2018 [facility] ELECTROLYTES AGAP 11.7 meq/L 10.0 - 20.0 03/29/2018 [facility] ELECTROLYTES B/C Ratio 17 6 - 25 03/29/2018 [facility] ELECTROLYTES Globulin 3.1 g/dL 2.7 - 4.2 03/29/2018 [facility] ELECTROLYTES A/G Ratio 0.9 0.7 - 1.6 03/29/2018 [facility] ELECTROLYTES Alk Phos 110 unit/L 39 - 136 03/29/2018 [facility] ELECTROLYTES Bili Total 0.8 mg/dL 0.2 - 1.3 03/29/2018 [facility] ELECTROLYTES AST 20 unit/L 0 - 37 03/29/2018 [facility] ELECTROLYTES Sodium Lvl 140 meq/L 135 - 145 03/29/2018 [facility] ELECTROLYTES Potassium Lvl 3.7 meq/L 3.5 - 5.1 03/29/2018 [facility] ELECTROLYTES Chloride Lvl 107 meq/L 95 - 109 03/29/2018 [facility] ELECTROLYTES Creatinine Lvl 0.78 mg/dL 0.50 - 1.40 03/29/2018 [facility] ELECTROLYTES eGFR 76 mL/min/1.73m2 03/29/2018 Result Comment: The eGFR is calculated using the CKD-EPI formula. In most young, healthy individuals the eGFR will be >90 mL/min/1.73m2. The eGFR declines with age. An eGFR of 60-89 may be normal in some populations, particularly the elderly, for whom the CKD-EPI formula has not been extensively validated. Use of the eGFR is not recommended in the following populations: Individuals with unstable creatinine concentrations, including patients and those with serious co-morbid conditions. Patients with extremes in muscle mass or diet. The data above are obtained from the National Kidney Disease Education Program (NKDEP) which additionally recommends that when the eGFR is used in patients with extremes of body mass index for purposes of drug dosing, the eGFR should be multiplied by the estimated BMI. [facility] ELECTROLYTES Calcium Lvl 9.3 mg/dL 8.5 - 10.5 03/29/2018 [facility] ELECTROLYTES Total Protein 6.0 g/dL 6.4 - 8.4 03/29/2018 [facility] ELECTROLYTES Albumin Lvl 2.9 g/dL 3.5 - 5.0 03/29/2018 [facility] ELECTROLYTES CO2 25 meq/L 24 - 32 03/29/2018 [facility] ELECTROLYTES ALT 37 unit/L 0 - 65 03/29/2018 [facility] ELECTROLYTES BUN 13 mg/dL 7 - 22 03/29/2018 [facility] ELECTROLYTES Glucose Lvl 99 mg/dL 70 - 99 03/29/2018 [facility] HEMATOLOGY Basophils # 0.1 K/CMM 0.0 - 0.2 03/29/2018 [facility] [facility] HEMATOLOGY Monocytes # 0.7 K/CMM 0.0 - 0.8 03/29/2018 [facility] HEMATOLOGY Lymphocytes # 2.4 K/CMM 1.0 - 5.5 03/29/2018 [facility] HEMATOLOGY Eosinophils # 0.3 K/CMM 0.0 - 0.5 03/29/2018 [facility] HEMATOLOGY Eosinophils 3.2 % 0.0 - 4.0 03/29/2018 [facility] HEMATOLOGY Basophils 0.8 % 0.0 - 1.0 03/29/2018 [facility] HEMATOLOGY Monocytes 7.6 % 2.0 - 12.0 03/29/2018 [facility] HEMATOLOGY Lymphocytes 27.6 % 20.0 - 40.0 03/29/2018 [facility] HEMATOLOGY Neutrophils # 5.3 K/CMM 1.5 - 8.1 03/29/2018 [facility] HEMATOLOGY Segs 60.8 % 45.0 - 75.0 03/29/2018 [facility] HEMATOLOGY WBC 8.8 K/CMM 3.7 - 10.4 03/29/2018 [facility] HEMATOLOGY Platelet 366 K/CMM 133 - 450 03/29/2018 [facility] HEMATOLOGY MPV 7.6 fL 7.4 - 10.4 03/29/2018 [facility] HEMATOLOGY RBC 3.94 M/CMM 4.20 - 5.40 03/29/2018 [facility] HEMATOLOGY Hgb 12.9 g/dL 12.0 - 16.0 03/29/2018 [facility] HEMATOLOGY Hct 37.6 % 36.0 - 48.0 03/29/2018 [facility] HEMATOLOGY MCV 95.5 fL 80.0 - 98.0 03/29/2018 [facility] HEMATOLOGY MCH 32.8 pg 27.0 - 31.0 03/29/2018 [facility] HEMATOLOGY RDW 14.2 % 11.5 - 14.5 03/29/2018 [facility] HEMATOLOGY MCHC 34.4 g/dL 32.0 - 36.0 03/29/2018 [facility] Chest 1view DX Chest 1view DX EXAM: XR CHEST 1 VIEW DATE: 03/26/2018 8:49 AM CDT INDICATION: - acute dyspnea. FINDINGS: Comparison is made to March 20. Cardiomediastinal silhouette is prominent but unchanged. The lungs are clear. No pleural effusions. IMPRESSION: The lungs are clear. 03/26/2018 - - Read by: Rebeca Stone MD Dictated Date/time: 03/26/18 09:38 Electronically Signed by: Rebeca Stone MD 03/26/18 14:01 FINAL REPORT [facility] CHEM PANEL Alk Phos 122 unit/L 39 - 136 03/25/2018 [facility] CHEM PANEL AST 28 unit/L 0 - 37 03/25/2018 [facility] CHEM PANEL ALT 77 unit/L 0 - 65 03/25/2018 [facility] CHEM PANEL Bili Indirect 0.3 mg/dL 0.0 - 1.0 03/25/2018 [facility] CHEM PANEL Bili Direct 0.2 mg/dL 0.0 - 0.3 03/25/2018 [facility] CHEM PANEL Bili Total 0.5 mg/dL 0.2 - 1.3 03/25/2018 [facility] CHEM PANEL Albumin Lvl 2.3 g/dL 3.5 - 5.0 03/25/2018 [facility] CHEM PANEL Total Protein 4.8 g/dL 6.4 - 8.4 03/25/2018 [facility] CHEM PANEL Globulin 2.5 g/dL 2.7 - 4.2 03/25/2018 [facility] CHEM PANEL A/G Ratio 0.9 0.7 - 1.6 03/25/2018 [facility] Pelvis AP DX Pelvis AP DX EXAM: XR PELVIS 1 VIEW DATE: 03/25/2018 at 0955 hours INDICATION: - r/o worsening fracture ADDITIONAL INFORMATION: Right iliac wing fracture on CT of 03/15/2018 COMPARISON: CT 03/15/2018, pelvis MRI 03/16/2018 TECHNIQUE: Frontal pelvis FINDINGS: No acute fracture or malalignment is identified. The previously suspected nondisplaced really iliac wing fracture is artifactual due to a prominent vascular groove/10 in the right iliac wing. No edema is present in this region on the MRI obtained immediately subsequent. Hip joint spaces are preserved. No pubic symphysis or SI joint diastasis. Lower lumbar fusion hardware is partially imaged. No soft tissue abnormality is identified. Findings discussed with Dr. Yane Arnold via telephone at 11:58 AM 03/25/2018 IMPRESSION: No acute abnormality of the pelvis. Previously suspected nondisplaced right iliac wing fracture is artifactual due to a prominent vascular groove/channel. 03/25/2018 - - Read by: Jeanette Lima MD Dictated Date/time: 03/25/18 11:39 Electronically Signed by: Jeanette Lima MD 03/25/18 11:59 FINAL REPORT [facility] CHEM PANEL A/G Ratio 1.1 0.7 - 1.6 03/24/2018 [facility] CHEM PANEL Globulin 2.8 g/dL 2.7 - 4.2 03/24/2018 [facility] CHEM PANEL Bili Total 0.5 mg/dL 0.2 - 1.3 03/24/2018 [facility] CHEM PANEL Bili Direct 0.2 mg/dL 0.0 - 0.3 03/24/2018 [facility] CHEM PANEL Bili Indirect 0.3 mg/dL 0.0 - 1.0 03/24/2018 [facility] CHEM PANEL Total Protein 5.8 g/dL 6.4 - 8.4 03/24/2018 [facility] CHEM PANEL Albumin Lvl 3.0 g/dL 3.5 - 5.0 03/24/2018 [facility] CHEM PANEL Alk Phos 152 unit/L 39 - 136 03/24/2018 [facility] CHEM PANEL AST 70 unit/L 0 - 37 03/24/2018 [facility] CHEM PANEL ALT 137 unit/L 0 - 65 03/24/2018 [facility] ELECTROLYTES AGAP 15.7 meq/L 10.0 - 20.0 03/24/2018 [facility] ELECTROLYTES eGFR 59 mL/min/1.73m2 03/24/2018 Result Comment: The eGFR is calculated using the CKD-EPI formula. In most young, healthy individuals the eGFR will be >90 mL/min/1.73m2. The eGFR declines with age. An eGFR of 60-89 may be normal in some populations, particularly the elderly, for whom the CKD-EPI formula has not been extensively validated. Use of the eGFR is not recommended in the following populations: Individuals with unstable creatinine concentrations, including patients and those with serious co-morbid conditions. Patients with extremes in muscle mass or diet. The data above are obtained from the National Kidney Disease Education Program (NKDEP) which additionally recommends that when the eGFR is used in patients with extremes of body mass index for purposes of drug dosing, the eGFR should be multiplied by the estimated BMI. [facility] ELECTROLYTES Calcium Lvl 9.7 mg/dL 8.5 - 10.5 03/24/2018 [facility] ELECTROLYTES CO2 23 meq/L 24 - 32 03/24/2018 [facility] ELECTROLYTES Creatinine Lvl 0.95 mg/dL 0.50 - 1.40 03/24/2018 [facility] ELECTROLYTES Glucose Lvl 104 mg/dL 70 - 99 03/24/2018 [facility] ELECTROLYTES BUN 15 mg/dL 7 - 22 03/24/2018 [facility] ELECTROLYTES Potassium Lvl 3.7 meq/L 3.5 - 5.1 03/24/2018 [facility] ELECTROLYTES Chloride Lvl 111 meq/L 95 - 109 03/24/2018 [facility] ELECTROLYTES Sodium Lvl 146 meq/L 135 - 145 03/24/2018 [facility] HEMATOLOGY Lymphocytes # 2.7 K/CMM 1.0 - 5.5 03/24/2018 [facility] HEMATOLOGY Neutrophils # 4.6 K/CMM 1.5 - 8.1 03/24/2018 [facility] HEMATOLOGY Monocytes # 0.7 K/CMM 0.0 - 0.8 03/24/2018 [facility] HEMATOLOGY Eosinophils # 0.3 K/CMM 0.0 - 0.5 03/24/2018 [facility] HEMATOLOGY Lymphocytes 32.2 % 20.0 - 40.0 03/24/2018 [facility] HEMATOLOGY Monocytes 8.6 % 2.0 - 12.0 03/24/2018 [facility] HEMATOLOGY Segs 55.5 % 45.0 - 75.0 03/24/2018 [facility] HEMATOLOGY Eosinophils 3.3 % 0.0 - 4.0 03/24/2018 [facility] HEMATOLOGY Basophils 0.4 % 0.0 - 1.0 03/24/2018 [facility] HEMATOLOGY Platelet 248 K/CMM 133 - 450 03/24/2018 [facility] HEMATOLOGY MCV 96.5 fL 80.0 - 98.0 03/24/2018 [facility] HEMATOLOGY MCH 32.7 pg 27.0 - 31.0 03/24/2018 [facility] HEMATOLOGY RDW 14.1 % 11.5 - 14.5 03/24/2018 [facility] HEMATOLOGY MCHC 33.9 g/dL 32.0 - 36.0 03/24/2018 [facility] HEMATOLOGY MPV 8.7 fL 7.4 - 10.4 03/24/2018 [facility] HEMATOLOGY Hgb 13.4 g/dL 12.0 - 16.0 03/24/2018 [facility] HEMATOLOGY Hct 39.6 % 36.0 - 48.0 03/24/2018 [facility] HEMATOLOGY WBC 8.3 K/CMM 3.7 - 10.4 03/24/2018 [facility] HEMATOLOGY RBC 4.11 M/CMM 4.20 - 5.40 03/24/2018 [facility] ANEMIA STUDY Folate Lvl 76.7 ng/mL >=3.0 ng/mL 03/23/2018 [facility] ANEMIA STUDY Vitamin B12 Lvl 1523 pg/mL 254 - 1320 03/23/2018 [facility] CHEM PANEL Ammonia 37.0 umol/L <=45.0 uMol/L 03/23/2018 [facility] ELECTROLYTES AGAP 13.7 meq/L 10.0 - 20.0 03/23/2018 [facility] ELECTROLYTES B/C Ratio 16 6 - 25 03/23/2018 [facility] ELECTROLYTES eGFR 63 mL/min/1.73m2 03/23/2018 Result Comment: The eGFR is calculated using the CKD-EPI formula. In most young, healthy individuals the eGFR will be >90 mL/min/1.73m2. The eGFR declines with age. An eGFR of 60-89 may be normal in some populations, particularly the elderly, for whom the CKD-EPI formula has not been extensively validated. Use of the eGFR is not recommended in the following populations: Individuals with unstable creatinine concentrations, including patients and those with serious co-morbid conditions. Patients with extremes in muscle mass or diet. The data above are obtained from the National Kidney Disease Education Program (NKDEP) which additionally recommends that when the eGFR is used in patients with extremes of body mass index for purposes of drug dosing, the eGFR should be multiplied by the estimated BMI. [facility] ELECTROLYTES Calcium Lvl 10.0 mg/dL 8.5 - 10.5 03/23/2018 [facility] ELECTROLYTES Creatinine Lvl 0.91 mg/dL 0.50 - 1.40 03/23/2018 [facility] ELECTROLYTES BUN 15 mg/dL 7 - 22 03/23/2018 [facility] ELECTROLYTES Sodium Lvl 145 meq/L 135 - 145 03/23/2018 [facility] ELECTROLYTES Potassium Lvl 3.7 meq/L 3.5 - 5.1 03/23/2018 [facility] ELECTROLYTES CO2 25 meq/L 24 - 32 03/23/2018 [facility] ELECTROLYTES Chloride Lvl 110 meq/L 95 - 109 03/23/2018 [facility] ELECTROLYTES Glucose Lvl 123 mg/dL 70 - 99 03/23/2018 [facility] HEMATOLOGY MPV 8.9 fL 7.4 - 10.4 03/23/2018 [facility] HEMATOLOGY RBC 3.83 M/CMM 4.20 - 5.40 03/23/2018 [facility] HEMATOLOGY Hgb 12.5 g/dL 12.0 - 16.0 03/23/2018 [facility] HEMATOLOGY RDW 14.3 % 11.5 - 14.5 03/23/2018 [facility] HEMATOLOGY MCV 97.0 fL 80.0 - 98.0 03/23/2018 [facility] HEMATOLOGY Platelet 246 K/CMM 133 - 450 03/23/2018 [facility] HEMATOLOGY Hct 37.2 % 36.0 - 48.0 03/23/2018 [facility] HEMATOLOGY WBC 5.3 K/CMM 3.7 - 10.4 03/23/2018 [facility] HEMATOLOGY MCH 32.6 pg 27.0 - 31.0 03/23/2018 [facility] HEMATOLOGY MCHC 33.6 g/dL 32.0 - 36.0 03/23/2018 [facility] HEMATOLOGY Monocytes # 0.6 K/CMM 0.0 - 0.8 03/23/2018 [facility] HEMATOLOGY Lymphocytes # 1.5 K/CMM 1.0 - 5.5 03/23/2018 [facility] HEMATOLOGY Neutrophils # 3.1 K/CMM 1.5 - 8.1 03/23/2018 [facility] HEMATOLOGY Eosinophils # 0.1 K/CMM 0.0 - 0.5 03/23/2018 [facility] HEMATOLOGY Monocytes 11.2 % 2.0 - 12.0 03/23/2018 [facility] HEMATOLOGY Basophils 0.4 % 0.0 - 1.0 03/23/2018 [facility] HEMATOLOGY Eosinophils 2.1 % 0.0 - 4.0 03/23/2018 [facility] HEMATOLOGY Lymphocytes 27.7 % 20.0 - 40.0 03/23/2018 [facility] HEMATOLOGY Segs 58.6 % 45.0 - 75.0 03/23/2018 [facility] URINE AND STOOL UA Ketones Negative mg/dL Negative mg/dL 03/23/2018 [facility] URINE AND STOOL UA Glucose Negative mg/dL Negative mg/dL 03/23/2018 [facility] URINE AND STOOL UA Protein Negative mg/dL Negative mg/dL 03/23/2018 [facility] URINE AND STOOL UA pH 7.5 5.0 - 8.0 03/23/2018 [facility] URINE AND STOOL UA Spec Grav 1.009 <=1.030 03/23/2018 [facility] URINE AND STOOL UA Turbidity Clear (03/22/18 9:38 PM) Clear 03/23/2018 [facility] URINE AND STOOL UA Color Yellow *NA* (03/22/18 9:38 PM) Yellow 03/23/2018 [facility] URINE AND STOOL UA Leuk Est Negative (03/22/18 9:38 PM) Negative 03/23/2018 [facility] URINE AND STOOL UA Mucus Few /LPF None Seen /LPF 03/23/2018 [facility] URINE AND STOOL UA Urobilinogen <=1.0 mg/dL 0.1 - 1.0 03/23/2018 [facility] URINE AND STOOL UA Sq Epi None Seen 03/23/2018 [facility] URINE AND STOOL UA Nitrite Negative (03/22/18 9:38 PM) Negative 03/23/2018 [facility] URINE AND STOOL UA Blood Negative (03/22/18 9:38 PM) Negative 03/23/2018 [facility] URINE AND STOOL UA Bili Negative *NA* (03/22/18 9:38 PM) Negative 03/23/2018 [facility] Culture: Urine Specimen contains 3 or more potential pathogens; recommend correlation with urinalysis; if catheterized specimen recommend removal and recollection. If clinical situation warrants please call the laboratory for further testing. [place] [facility] [phone]. 03/21/2018 [facility] CHEM PANEL B/C Ratio 23 6 - 25 03/21/2018 [facility] URINE AND STOOL UA Leuk Est Trace *ABN* (03/20/18 3:56 PM) Negative 03/20/2018 [facility] URINE AND STOOL UA WBC 3 /HPF 0 - 5 03/20/2018 [facility] URINE AND STOOL UA Nitrite Negative (03/20/18 3:56 PM) Negative 03/20/2018 [facility] URINE AND STOOL UA Ketones Negative mg/dL Negative mg/dL 03/20/2018 [facility] URINE AND STOOL UA Blood Negative (03/20/18 3:56 PM) Negative 03/20/2018 [facility] URINE AND STOOL UA Bili Negative *NA* (03/20/18 3:56 PM) Negative 03/20/2018 [facility] URINE AND STOOL UA Urobilinogen <=1.0 mg/dL 0.1 - 1.0 03/20/2018 [facility] URINE AND STOOL UA Mucus Few /LPF None Seen /LPF 03/20/2018 [facility] URINE AND STOOL UA Bacteria Occasional /HPF None Seen /HPF 03/20/2018 [facility] URINE AND STOOL UA RBC null 0 - 2 03/20/2018 [facility] URINE AND STOOL UA Sq Epi None Seen 03/20/2018 [facility] URINE AND STOOL UA Glucose Negative mg/dL Negative mg/dL 03/20/2018 [facility] URINE AND STOOL UA pH 6.0 5.0 - 8.0 03/20/2018 [facility] URINE AND STOOL UA Protein Negative mg/dL Negative mg/dL 03/20/2018 [facility] URINE AND STOOL UA Spec Grav 1.019 <=1.030 03/20/2018 [facility] URINE AND STOOL UA Turbidity Clear (03/20/18 3:56 PM) Clear 03/20/2018 [facility] URINE AND STOOL UA Color Yellow *NA* (03/20/18 3:56 PM) Yellow 03/20/2018 [facility] Chest 1view DX Chest 1view DX EXAM: XR CHEST 1 VIEW DATE: 03/20/2018 2:35 PM CDT INDICATION: - delirium work up COMPARISON: 06/15/2017 TECHNIQUE: AP chest IMPRESSION: 1. Oblique images where obtained with the spuriously widened mediastinum. 2. Mild bibasilar subsegmental atelectatic changes. Otherwise, lungs are clear. 3. Costophrenic sulci are sharp. 4. No acute osseous abnormalities. 03/20/2018 - - Read by: Chavez Cardona MD Dictated Date/time: 03/20/18 16:30 Electronically Signed by: Chavez Cardona MD 03/20/18 16:31 FINAL REPORT [facility] Abdomen AP DX Abdomen AP DX EXAM: XR ABDOMEN 1 VIEW DATE: 03/20/2018 2:21 PM CDT INDICATION: - co ADDITIONAL INFORMATION: None. COMPARISON: None. TECHNIQUE: AP view of the abdomen. FINDINGS: Lines, tubes and hardware: Posterior spinal hardware seen spanning L4-5. Surgical clips are noted in the lower abdomen. Lower thorax: Bibasilar subsegmental atelectasis. Abdomen and bowel: Normal. Calcifications: No abnormal calcifications found. Bones and soft tissues: No acute abnormality. IMPRESSION: 1. No abdominal abnormalities. 2. Hardware as above. 03/20/2018 - - This report was dictated by a [employer]/Fellow. I have personally reviewed the images as well as the Resident's interpretation and agree with the findings. Read by: Jossy Sanchez MD Resident: Jossy Sanchez MD Dictated Date/time: 03/21/18 10:02 Electronically Signed by: Alex Pemberton MD 03/21/18 13:50 FINAL REPORT [facility] Brain wo contrast CT Brain wo contrast CT EXAM: CT BRAIN WITHOUT CONTRAST DATE: 03/20/2018 INDICATION: Altered mental status, fall yesterday COMPARISON: Brain CT dated 03/19/2018 TECHNIQUE: Routine axial images of the brain were obtained. IV contrast: None DISCUSSION: Over the interval, there has been no real change. No acute intracranial hemorrhage, edema, or extra-axial collection is demonstrated. The overall ventricular size is unchanged. The basal cisterns remain patent. No fracture of the calvarium or skull base is stated. Again, there is right frontal extracranial soft tissue swelling, associated with right periorbital soft tissue swelling. The orbital globes are intact. No retrobulbar hemorrhage is identified. IMPRESSION: 1. No acute intracranial abnormality. No hemorrhage or adverse change 2. Right frontal and periorbital soft tissue swelling 03/20/2018 - - Read by: Roberto Shaw MD Dictated Date/time: 03/20/18 14:49 Electronically Signed by: Roberto Shaw MD 03/20/18 14:53 FINAL REPORT [facility] URINE AND STOOL UA Hyal Cast 3 /LPF 0 - 2 03/20/2018 [facility] URINE AND STOOL UA RBC 1 /HPF 0 - 2 03/20/2018 [facility] URINE AND STOOL UA WBC 1 /HPF 0 - 5 03/20/2018 [facility] Brain wo contrast CT Brain wo contrast CT EXAM: CT HEAD WITHOUT CONTRAST DATE: 03/19/2018 5:28 PM CDT INDICATION: 72 years old Female patient with history of - fall. TECHNIQUE: Multiple axial images were obtained through the head from vertex to the skull base. Axial bone algorithm reconstruction images are provided. COMPARISON: CT head 03/15/2018 FINDINGS: No acute intracranial hemorrhage is identified. Mild global brain volume loss and corresponding dilatation of the ventricles. No parenchymal mass, mass effect or midline shift is present. No parenchymal mass, mass effect or midline shift is present. Mild periventricular white matter hypodensities, nonspecific and most commonly secondary to chronic small vessel ischemia. No parenchymal mass, mass effect or midline shift is present. No parenchymal mass, cervical midline shift is present. The masters-white matter differentiation is maintained. No pathologic extra axial fluid is identified. Right periorbital hematoma is noted. IMPRESSION: 1. No acute intracranial hemorrhage. 03/19/2018 - - Read by: Isaias Sweet MD Dictated Date/time: 03/19/18 18:29 Electronically Signed by: Isaias Sweet MD 03/19/18 18:32 FINAL REPORT [facility] CHEM PANEL Vitamin D, 25-OH, Total 30.8 ng/mL 30.0 - 100.0 03/16/2018 [facility] PARATHYROID PROFILE PTH Intact 53.0 pg/mL 18.4 - 80.1 03/16/2018 [facility] Pelvis wo contrast MRI Pelvis wo contrast MRI EXAM: MR PELVIS WITHOUT CONTRAST DATE: 03/16/2018 6:48 AM CDT INDICATION: - high velocity hip fx protocol- attn Sef COMPARISON: Radiograph dated March 15, 2018 TECHNIQUE: Multiplanar, multisequence noncontrast imaging of the pelvis IV contrast: None FINDINGS: Motion limits assessment of fine details. Bones: No acute fractures seen in the pelvis or both hips. No abnormal marrow signal visualized. SI joints are unremarkable. Symphysis pubis is intact. Soft tissues: No abnormality in the soft tissues. Muscles: No muscular edema, fluid collection or atrophy. Tendons: No focal tendon signal abnormality, or evidence for tenosynovitis. Sciatic nodes are intact bilaterally. IMPRESSION: No acute fracture visualized on either side. 03/16/2018 - - Read by: John De La Fuente MD Dictated Date/time: 03/16/18 13:08 Electronically Signed by: John De La Fuente MD 03/16/18 13:10 FINAL REPORT [facility] CARDIAC ENZYMES Troponin-I null 0.00 - 0.40 03/15/2018 [facility] CHEM PANEL Lactic Acid WB 1.8 mmol/L 0.5 - 2.2 03/15/2018 [facility] CHEM PANEL Lipase Lvl 80 unit/L 73 - 393 03/15/2018 [facility] HEMATOLOGY PT 12.1 s 12.0 - 14.7 03/15/2018 [facility] HEMATOLOGY INR 0.90 0.85 - 1.17 03/15/2018 [facility] HEMATOLOGY PTT 23.6 s 22.9 - 35.8 03/15/2018 [facility] HEMATOLOGY Basophils # 0.1 K/CMM 0.0 - 0.2 03/15/2018 [facility] Pelvis 3 views DX Pelvis 3 views DX EXAM: XR PELVIS 3 VIEWS DATE: 03/15/2018 9:34 PM CDT INDICATION: - Inlet outlet, AP COMPARISON: CT chest/abdomen/pelvis 03/15/2018. TECHNIQUE: AP, inlet, outlet views of the pelvis UT SECTION: ER FINDINGS: The nondisplaced right iliac bone fracture is better seen on the prior CT. The pelvic ring is intact. Posterior spinal fusion hardware is partially seen. No pubic symphysis or sacroiliac joint diastasis. No soft tissue abnormality is identified. IMPRESSION: Right iliac wing fracture better seen on the prior CT. 03/15/2018 - - This report was dictated by a [employer]/Fellow. I have personally reviewed the images as well as the Resident's interpretation and agree with the findings. Read by: Jesus Manuel Rodgers MD Resident: Jesus Manuel Rodgers MD Dictated Date/time: 03/15/18 22:33 Electronically Signed by: Justin Goff MD 03/16/18 01:07 FINAL REPORT [facility] Tibia fibula series DX Tibia fibula series DX EXAM: XR RIGHT FEMUR 2 VIEWS EXAM: XR RIGHT KNEE 3 VIEWS EXAM: XR RIGHT TIBIA-FIBULA 2 VIEWS DATE: 03/15/2018 7:46 PM CDT INDICATION: - Pain after injury COMPARISON: None. TECHNIQUE: 2 views of the femur, 3 views of the knee, 2 views of the tibia-fibula FINDINGS: Femur: No acute fracture or malalignment is identified. Degenerative changes of the hip are noted. Knee: No acute fracture or malalignment is identified. Medial knee joint space narrowing is noted with marginal osteophyte formation. No knee joint effusion is present. Tibia-fibula: No acute fracture or malalignment is identified. Chronic healed fracture of the distal fibula noted. Soft tissues: No soft tissue abnormality is identified. IMPRESSION: No acute fracture. Chronic healed fracture of the distal fibula. Moderate degenerative changes of the knee. Mild degenerative change of the hip. 03/15/2018 - - This report was dictated by a Instructor Ground Services/Fellow. I have personally reviewed the images as well as the Resident's interpretation and agree with the findings. Read by: Glynn Calzada MD Resident: Glynn Calzada MD Dictated Date/time: 03/15/18 20:21 Electronically Signed by: Justin Goff MD 03/15/18 21:41 FINAL REPORT [facility] Knee series 3 views DX Knee series 3 views DX EXAM: XR RIGHT FEMUR 2 VIEWS EXAM: XR RIGHT KNEE 3 VIEWS EXAM: XR RIGHT TIBIA-FIBULA 2 VIEWS DATE: 03/15/2018 7:46 PM CDT INDICATION: - Pain after injury COMPARISON: None. TECHNIQUE: 2 views of the femur, 3 views of the knee, 2 views of the tibia-fibula FINDINGS: Femur: No acute fracture or malalignment is identified. Degenerative changes of the hip are noted. Knee: No acute fracture or malalignment is identified. Medial knee joint space narrowing is noted with marginal osteophyte formation. No knee joint effusion is present. Tibia-fibula: No acute fracture or malalignment is identified. Chronic healed fracture of the distal fibula noted. Soft tissues: No soft tissue abnormality is identified. IMPRESSION: No acute fracture. Chronic healed fracture of the distal fibula. Moderate degenerative changes of the knee. Mild degenerative change of the hip. 03/15/2018 - - This report was dictated by a Instructor Ground Services/Fellow. I have personally reviewed the images as well as the Resident's interpretation and agree with the findings. Read by: Glynn Calzada MD Resident: Glynn Calzada MD Dictated Date/time: 03/15/18 20:21 Electronically Signed by: Justin Goff MD 03/15/18 21:41 FINAL REPORT [facility] Femur series DX Femur series DX EXAM: XR RIGHT FEMUR 2 VIEWS EXAM: XR RIGHT KNEE 3 VIEWS EXAM: XR RIGHT TIBIA-FIBULA 2 VIEWS DATE: 03/15/2018 7:46 PM CDT INDICATION: - Pain after injury COMPARISON: None. TECHNIQUE: 2 views of the femur, 3 views of the knee, 2 views of the tibia-fibula FINDINGS: Femur: No acute fracture or malalignment is identified. Degenerative changes of the hip are noted. Knee: No acute fracture or malalignment is identified. Medial knee joint space narrowing is noted with marginal osteophyte formation. No knee joint effusion is present. Tibia-fibula: No acute fracture or malalignment is identified. Chronic healed fracture of the distal fibula noted. Soft tissues: No soft tissue abnormality is identified. IMPRESSION: No acute fracture. Chronic healed fracture of the distal fibula. Moderate degenerative changes of the knee. Mild degenerative change of the hip. 03/15/2018 - - This report was dictated by a Instructor Ground Services/Fellow. I have personally reviewed the images as well as the Resident's interpretation and agree with the findings. Read by: Glynn Calzada MD Resident: Glynn Calzada MD Dictated Date/time: 03/15/18 20:21 Electronically Signed by: Justin Goff MD 03/15/18 21:41 FINAL REPORT [facility] Brain wo contrast CT Brain wo contrast CT EXAM: CT BRAIN WITHOUT CONTRAST DATE: 03/15/2018 INDICATION: Head trauma and old stroke COMPARISON: Brain CT dated 06/15/2017 at [facility] TECHNIQUE: Routine axial images of the brain were obtained. IV contrast: None DISCUSSION: There is no hemorrhage or other brain injury. There are chronic microvascular ischemic changes in the white matter and diffuse cortical volume loss. The ventricles and basal cisterns are patent. No fracture of the calvarium or skull base is detected. There are atherosclerotic calcifications in the bilateral carotid siphons. The mastoid air cells and visible paranasal sinuses are clear. The orbital globes are unremarkable. IMPRESSION: No acute intracranial abnormality UT SECTION: Neuro 03/15/2018 - - This report was dictated by a Instructor Ground Services/Fellow. I have personally reviewed the images as well as the Resident's interpretation and agree with the findings. Read by: Alex Londono MD Resident: Alex Londono MD Dictated Date/time: 03/15/18 18:40 Electronically Signed by: Roberto Shaw MD 03/15/18 18:49 FINAL REPORT [facility] Chest/Abdomen/Pelvis wo IV contrast CT Chest/Abdomen/Pelvis wo IV contrast CT EXAM: CT CHEST WITHOUT CONTRAST EXAM: CT ABDOMEN AND PELVIS WITHOUT CONTRAST DATE: 03/15/2018 4:55 PM CDT INDICATION: - Concerned for spinal fx in multiple places and hip, less concerned for intraabdominal injury COMPARISON: TECHNIQUE: Volumetric CT of the chest, abdomen and pelvis is acquired without intravenous contrast. Axial, coronal and sagittal images are provided. IV contrast: None Oral contrast: None. DLP: 2184 mGy-cm [place] SECTION: ER FINDINGS: Exam is limited by noncontrast technique. Lines and tubes: None. Lower Neck: Supraclavicular soft tissues are unremarkable. Thoracic Aorta and Mediastinum: No mediastinal hematoma. Normal heart and pericardium. Lungs, Pleura, Diaphragm: No pulmonary contusions. The lungs are clear. No pleural effusion or pneumothorax. No diaphragmatic injury. Liver and biliary tree: Unremarkable. No injury. No biliary abnormality. Gallbladder: No CT evidence of gallstones. No injury. Pancreas: Diffuse atrophy noted. No injury. Spleen: Unremarkable. No injury. Adrenals: Unremarkable. No injury. Kidneys and ureters: Unremarkable. No injury. Bladder: Unremarkable. No injury. Reproductive organs: No injury. Uterus has been removed. Gastrointestinal tract: Unremarkable. No bowel injury. Peritoneum and retroperitoneum: No fluid collections or free air. Lymph nodes: Normal. Vasculature: Mild atherosclerotic disease of the abdominal aorta is present. No injuries identified allowing for noncontrast technique. Spine/ Bones: No acute abnormality of the spine. Nondisplaced vertically oriented fracture of the right iliac wing noted. Posterior fusion hardware is noted extending from L4-L5. Severe disease is noted extending from L3 to S1. Multilevel degenerative changes of thoracic spine are noted with anterior marginal osteophyte formation. Soft tissues: Normal. IMPRESSION: Nondisplaced fracture of the right iliac wing. No acute intra-thoracic or intra-abdominal/pelvic injuries identified allowing for limitations due to noncontrast technique. Multilevel degenerative change of the thoracic and lumbar spine with posterior fusion from L4-L5. Dr. Fitch notified of findings at 2136 hours on 03/15/2018. 03/15/2018 - - This report was dictated by a Instructor Ground Services/Fellow. I have personally reviewed the images as well as the Resident's interpretation and agree with the findings. Read by: Glynn Calzada MD Resident: Glynn Calzada MD Dictated Date/time: 03/15/18 18:49 Electronically Signed by: Justin Goff MD 03/16/18 01:43 FINAL REPORT [facility] Spine cervical wo contrast CT Spine cervical wo contrast CT EXAM: CT CERVICAL SPINE WITHOUT CONTRAST DATE: 03/15/2018 4:55 PM CDT INDICATION: - S/p trauma COMPARISON: MRI cervical spine 07/16/2016 TECHNIQUE: Volumetric CT of the cervical spine is acquired without contrast. Axial, coronal and sagittal images are provided. IV contrast: None. DLP: 560.6 mGy-cm [place] SECTION: ER FINDINGS: The spine is imaged from the skull base to the level of T1. No spondylolisthesis present. Vertebral body heights are normal. No cervical spine fracture is identified. No prevertebral soft tissue edema or hematoma is observed. Mild degenerative disease present at C2-C4. Moderate-severe degenerative disc disease present C4-C7. Disc-osteophyte complex bulge and uncovertebral joint hypertrophy present throughout the cervical spine most pronounced at C4-C7. Bilateral facet joint arthropathy present greater on the right. Moderate central canal stenosis present at C5-C6, C6-C7. Bilateral neural foraminal stenosis present at C4-C5, C5-C6, C6-C7. IMPRESSION: No cervical spine fractures identified. Multilevel degenerative disc disease, uncovertebral joint hypertrophy, disc- osteophyte complex bulge, and facet joint arthropathy with central canal and neural foraminal stenosis as described. 03/15/2018 - - This report was dictated by a Instructor Ground Services/Fellow. I have personally reviewed the images as well as the Resident's interpretation and agree with the findings. Read by: Alex Londono MD Resident: Alex Londono MD Dictated Date/time: 03/15/18 18:44 Electronically Signed by: Justin Goff MD 03/15/18 22:14 FINAL REPORT [facility] DRUG SCREEN U Cocaine Scr Negative *NA* (06/15/17 10:22 PM) Negative 06/16/2017 [facility] DRUG SCREEN U Benzodia Scr Negative *NA* (06/15/17 10:22 PM) Negative 06/16/2017 [facility] DRUG SCREEN U Lizz Scr Negative *NA* (06/15/17 10:22 PM) Negative 06/16/2017 [facility] DRUG SCREEN U Cannab Scr Negative *NA* (06/15/17 10:22 PM) Negative 06/16/2017 [facility] DRUG SCREEN U Opiate Scr Negative *NA* (06/15/17 10:22 PM) Negative 06/16/2017 [facility] DRUG SCREEN U Phencyc Scr Negative *NA* (06/15/17 10:22 PM) Negative 06/16/2017 [facility] DRUG SCREEN UDS Note See Note *NA* (06/15/17 10:22 PM) 06/16/2017 [facility] DRUG SCREEN U Amph Scr Negative *NA* (06/15/17 10:22 PM) Negative 06/16/2017 [facility] URINE AND STOOL UA Glucose Negative mg/dL Negative mg/dL 06/16/2017 [facility] URINE AND STOOL UA Protein Negative mg/dL Negative mg/dL 06/16/2017 [facility] URINE AND STOOL UA pH 5.0 5.0 - 8.0 06/16/2017 [facility] URINE AND STOOL UA Color Yellow *NA* (06/15/17 10:22 PM) Yellow 06/16/2017 [facility] URINE AND STOOL UA Bili Negative *NA* (06/15/17 10:22 PM) Negative 06/16/2017 [facility] URINE AND STOOL UA Ketones Negative mg/dL Negative mg/dL 06/16/2017 [facility] URINE AND STOOL UA Spec Grav 1.020 <=1.030 06/16/2017 [facility] URINE AND STOOL UA Turbidity Slight *ABN* (06/15/17 10:22 PM) Clear 06/16/2017 [facility] URINE AND STOOL UA Urobilinogen <=1.0 mg/dL 0.1 - 1.0 06/16/2017 [facility] URINE AND STOOL UA Hyal Cast 9 /LPF 0 - 2 06/16/2017 [facility] URINE AND STOOL UA Mucus Few /LPF None Seen /LPF 06/16/2017 [facility] URINE AND STOOL UA Bacteria Occasional /HPF None Seen /HPF 06/16/2017 [facility] URINE AND STOOL UA WBC 3 /HPF 0 - 5 06/16/2017 [facility] URINE AND STOOL UA Sq Epi Occasional /LPF Few /LPF 06/16/2017 [facility] URINE AND STOOL UA RBC 2 /HPF 0 - 2 06/16/2017 [facility] URINE AND STOOL UA Leuk Est Negative (06/15/17 10:22 PM) Negative 06/16/2017 [facility] URINE AND STOOL UA Nitrite Negative (06/15/17 10:22 PM) Negative 06/16/2017 [facility] URINE AND STOOL UA Blood Negative (06/15/17 10:22 PM) Negative 06/16/2017 [facility] CHEM PANEL Lipase Lvl 189 unit/L 73 - 393 06/16/2017 [facility] ELECTROLYTES AGAP 12.2 meq/L 10.0 - 20.0 06/16/2017 [facility] ELECTROLYTES B/C Ratio 31 6 - 25 06/16/2017 [facility] ELECTROLYTES Globulin 4.1 g/dL 2.7 - 4.2 06/16/2017 [facility] ELECTROLYTES A/G Ratio 0.8 0.7 - 1.6 06/16/2017 [facility] ELECTROLYTES eGFR 37 mL/min/1.73m2 06/16/2017 Result Comment: The eGFR is calculated using the CKD-EPI formula. In most young, healthy individuals the eGFR will be >90 mL/min/1.73m2. The eGFR declines with age. An eGFR of 60-89 may be normal in some populations, particularly the elderly, for whom the CKD-EPI formula has not been extensively validated. Use of the eGFR is not recommended in the following populations: Individuals with unstable creatinine concentrations, including patients and those with serious co-morbid conditions. Patients with extremes in muscle mass or diet. The data above are obtained from the National Kidney Disease Education Program (NKDEP) which additionally recommends that when the eGFR is used in patients with extremes of body mass index for purposes of drug dosing, the eGFR should be multiplied by the estimated BMI. [facility] ELECTROLYTES Bili Total 0.8 mg/dL 0.2 - 1.3 06/16/2017 [facility] ELECTROLYTES CO2 26 meq/L 24 - 32 06/16/2017 [facility] ELECTROLYTES Total Protein 7.4 g/dL 6.4 - 8.4 06/16/2017 [facility] ELECTROLYTES Calcium Lvl 9.3 mg/dL 8.5 - 10.5 06/16/2017 [facility] ELECTROLYTES Potassium Lvl 3.2 meq/L 3.5 - 5.1 06/16/2017 [facility] ELECTROLYTES Glucose Lvl 129 mg/dL 70 - 99 06/16/2017 [facility] ELECTROLYTES BUN 44 mg/dL 7 - 22 06/16/2017 [facility] ELECTROLYTES Creatinine Lvl 1.42 mg/dL 0.50 - 1.40 06/16/2017 [facility] ELECTROLYTES Sodium Lvl 142 meq/L 135 - 145 06/16/2017 [facility] ELECTROLYTES Albumin Lvl 3.3 g/dL 3.5 - 5.0 06/16/2017 [facility] ELECTROLYTES Chloride Lvl 107 meq/L 95 - 109 06/16/2017 [facility] ELECTROLYTES AST 11 unit/L 0 - 37 06/16/2017 [facility] ELECTROLYTES Alk Phos 91 unit/L 39 - 136 06/16/2017 [facility] ELECTROLYTES ALT 23 unit/L 0 - 65 06/16/2017 [facility] HEMATOLOGY MPV 8.6 fL 7.4 - 10.4 06/16/2017 [facility] HEMATOLOGY Platelet 378 K/CMM 133 - 450 06/16/2017 [facility] MCH 33.3 pg 27.0 - 31.0 06/16/2017 [facility] HEMATOLOGY MCV 95.6 fL 80.0 - 98.0 06/16/2017 [facility] HEMATOLOGY RDW 13.6 % 11.5 - 14.5 06/16/2017 [facility] MCHC 34.8 g/dL 32.0 - 36.0 06/16/2017 [facility] Hgb 13.7 g/dL 12.0 - 16.0 06/16/2017 [facility] RBC 4.11 M/CMM 4.20 - 5.40 06/16/2017 [facility] HEMATOLOGY Hct 39.3 % 36.0 - 48.0 06/16/2017 [facility] HEMATOLOGY WBC 14.6 K/CMM 3.7 - 10.4 06/16/2017 [facility] HEMATOLOGY Basophils # 0.1 K/CMM 0.0 - 0.2 06/16/2017 [facility] HEMATOLOGY Segs-Bands # 10.6 K/CMM 1.5 - 8.1 06/16/2017 [facility] HEMATOLOGY Lymphocytes # 2.7 K/CMM 1.0 - 5.5 06/16/2017 [facility] HEMATOLOGY Monocytes # 1.1 K/CMM 0.0 - 0.8 06/16/2017 [facility] HEMATOLOGY Eosinophils # 0.1 K/CMM 0.0 - 0.5 06/16/2017 [facility] HEMATOLOGY Segs 72.5 % 45.0 - 75.0 06/16/2017 [facility] Lymphocytes 18.4 % 20.0 - 40.0 06/16/2017 [facility] Monocytes 7.8 % 2.0 - 12.0 06/16/2017 [facility] Eosinophils 0.8 % 0.0 - 4.0 06/16/2017 [facility] HEMATOLOGY Basophils 0.5 % 0.0 - 1.0 06/16/2017 [facility] TOXICOLOGY Salicylate Lvl null 0.0 - 30.0 06/16/2017 [facility] TOXICOLOGY Etoh (%) null 06/16/2017 [facility] TOXICOLOGY Ethanol Lvl null 06/16/2017 [facility] TOXICOLOGY Acetaminoph Lvl <2
(06/15/17 9:36 PM) 10 - 20 06/16/2017 [facility] Chest 1view DX Chest 1view DX 1 VIEW CXR. PORTABLE EXAM 11:35 PM HISTORY: Altered mental status. COMPARISON: 06/05/2017 chest x-ray. The cardiomediastinal silhouette is normal. The lungs are clear with normal pulmonary vasculature. No pleural abnormality. Bones intact. IMPRESSION: Normal exam. END OF IMPRESSION SL: [id number] 06/15/2017 - - Read by: Pedro Ortez MD Dictated Date/time: 06/15/17 23:44 Electronically Signed by: Pedro Ortez MD 06/15/17 23:45 FINAL REPORT [facility] Brain wo contrast CT Brain wo contrast CT STUDY: Brain wo contrast CT 06/15/2017 10:02 PM MANAGER LAB Ordering Physician: Denny Abrams MD Patient Name: FREDA CHAU MR: [id number] : 1945; Age: 71 years y/o Female Clinical Indication: Altered mental status. Dlp-868.76mgy-cm Comparison: 06/05/2017. TECHNIQUE: Multiple contiguous transaxial noncontrast CT images were obtained through the head. Coronal and sagittal reformatted images were prepared. FINDINGS: BRAIN PARENCHYMA: 1. Mild diffuse age-appropriate atrophy is present associated with mild nonspecific periventricular low attenuation most consistent with old microangiopathic ischemic change. 2. No evidence of acute intracranial hemorrhage, mass lesion, mass effect, midline shift, or extra-axial fluid collection. VENTRICLES: The lateral ventricles, third ventricle, fourth ventricle, and basilar cisterns are appropriate for degree of atrophy present. PARANASAL SINUSES: The visualized portions of the paranasal sinuses are clear. MASTOIDS: Clear. ORBITS: The visualized portions of the orbits are normal. SOFT TISSUES: No significant abnormality. SKULL: No acute fracture or suspicious osseous lesion. IMPRESSION: 1. Mild diffuse age-appropriate atrophy is present associated with mild nonspecific periventricular low attenuation most consistent with old microangiopathic ischemic change. SL: [id number] 06/15/2017 - - Read by: Braulio Rothman MD Dictated Date/time: 06/15/17 22:43 Electronically Signed by: Braulio Rothman MD 06/15/17 22:46 FINAL REPORT [facility] URINE AND STOOL UA Urobilinogen <=1.0 mg/dL 0.1 - 1.0 06/05/2017 [facility] URINE AND STOOL UA Sq Epi None Seen 06/05/2017 [facility] URINE AND STOOL UA Leuk Est Trace *ABN* (06/05/17 2:00 PM) Negative 06/05/2017 [facility] URINE AND STOOL UA Mucus Few /LPF None Seen /LPF 06/05/2017 [facility] URINE AND STOOL UA Nitrite Negative (06/05/17 2:00 PM) Negative 06/05/2017 [facility] URINE AND STOOL UA Ketones Negative mg/dL Negative mg/dL 06/05/2017 [facility] URINE AND STOOL UA Protein Negative mg/dL Negative mg/dL 06/05/2017 [facility] URINE AND STOOL UA Blood Negative (06/05/17 2:00 PM) Negative 06/05/2017 [facility] URINE AND STOOL UA Bili Negative *NA* (06/05/17 2:00 PM) Negative 06/05/2017 [facility] URINE AND STOOL UA Hyal Cast 23 /LPF 0 - 2 06/05/2017 [facility] URINE AND STOOL UA Hyph Yeast None Seen 1 (06/05/17 2:00 PM) None Seen 06/05/2017 Result Comment: called Madiha Mehta at 06/05/2017 14:19 for correction due to mistyping. [facility] URINE AND STOOL UA Glucose Negative mg/dL Negative mg/dL 06/05/2017 [facility] URINE AND STOOL UA pH 6.0 5.0 - 8.0 06/05/2017 [facility] URINE AND STOOL UA Spec Grav 1.014 <=1.030 06/05/2017 [facility] URINE AND STOOL UA Turbidity Clear (06/05/17 2:00 PM) Clear 06/05/2017 [facility] URINE AND STOOL UA Color Yellow *NA* (06/05/17 2:00 PM) Yellow 06/05/2017 [facility] CARDIAC ENZYMES Troponin-I null 0.00 - 0.40 06/05/2017 [facility] CHEM PANEL Lipase Lvl 126 unit/L 73 - 393 06/05/2017 [facility] CHEM PANEL Glucose Lvl 109 mg/dL 70 - 99 06/05/2017 [facility] CHEM PANEL BUN 25 mg/dL 7 - 22 06/05/2017 [facility] CHEM PANEL Albumin Lvl 2.9 g/dL 3.5 - 5.0 06/05/2017 [facility] CHEM PANEL CO2 25 meq/L 24 - 32 06/05/2017 [facility] CHEM PANEL Calcium Lvl 8.8 mg/dL 8.5 - 10.5 06/05/2017 [facility] CHEM PANEL ALT 30 unit/L 0 - 65 06/05/2017 [facility] CHEM PANEL eGFR 48 mL/min/1.73m2 06/05/2017 Result Comment: The eGFR is calculated using the CKD-EPI formula. In most young, healthy individuals the eGFR will be >90 mL/min/1.73m2. The eGFR declines with age. An eGFR of 60-89 may be normal in some populations, particularly the elderly, for whom the CKD-EPI formula has not been extensively validated. Use of the eGFR is not recommended in the following populations: Individuals with unstable creatinine concentrations, including patients and those with serious co-morbid conditions. Patients with extremes in muscle mass or diet. The data above are obtained from the National Kidney Disease Education Program (NKDEP) which additionally recommends that when the eGFR is used in patients with extremes of body mass index for purposes of drug dosing, the eGFR should be multiplied by the estimated BMI. [facility] CHEM PANEL Creatinine Lvl 1.14 mg/dL 0.50 - 1.40 06/05[facility] AST 21 unit/L 0 - 37 06/05/2017 [facility] CHEM PANEL Bili Total 0.3 mg/dL 0.2 - 1.3 06/05/2017 [facility] CHEM PANEL Total Protein 6.7 g/dL 6.4 - 8.4 06/05/2017 [facility] CHEM PANEL Alk Phos 85 unit/L 39 - 136 06/05/2017 [facility] Chloride Lvl 105 meq/L 95 - 109 06/05/2017 [facility] PAN[facility] Potassium Lvl 3.8 meq/L 3.5 - 5.1 06/05/2017 [facility] PAN[facility] Sodium Lvl 139 meq/L 135 - 145 06/05/2017 [facility] PAN[facility] AGAP 12.8 meq/L 10.0 - 20.0 06/05/2017 [facility] B/C Ratio 22 6 - 25 06/05/2017 [facility] CHEM PANEL A/G Ratio 0.8 0.7 - 1.6 06/05/2017 [facility] Globulin 3.8 g/dL 2.7 - 4.2 06/05/2017 [facility] HEMATOLOGY Segs 57.5 % 45.0 - 75.0 06/05/2017 [facility] HEMATOLOGY Basophils # 0.1 K/CMM 0.0 - 0.2 06/05/2017 [facility] HEMATOLOGY Eosinophils # 0.3 K/CMM 0.0 - 0.5 06/05/2017 [facility] HEMATOLOGY Lymphocytes # 3.3 K/CMM 1.0 - 5.5 06/05/2017 [facility] Monocytes # 0.7 K/CMM 0.0 - 0.8 06/05/2017 [facility] Segs-Bands # 6.0 K/CMM 1.5 - 8.1 06/05/2017 [facility] Eosinophils 2.7 % 0.0 - 4.0 06/05/2017 [facility] Basophils 0.9 % 0.0 - 1.0 06/05/2017 [facility] Monocytes 6.8 % 2.0 - 12.0 06/05/2017 [facility] Lymphocytes 32.1 % 20.0 - 40.0 06/05/2017 [facility] MPV 8.2 fL 7.4 - 10.4 06/05/2017 [facility] Platelet 327 K/CMM 133 - 450 06/05/2017 [facility] RDW 13.6 % 11.5 - 14.5 06/05/2017 [facility] RBC 3.96 M/CMM 4.20 - 5.40 06/05/2017 [facility] WBC 10.4 K/CMM 3.7 - 10.4 06/05/2017 [facility] MCH 32.8 pg 27.0 - 31.0 06/05/2017 [facility] MCV 96.1 fL 80.0 - 98.0 06/05/2017 [facility] MCHC 34.1 g/dL 32.0 - 36.0 06/05/2017 [facility] Hct 38.1 % 36.0 - 48.0 06/05/2017 [facility] Hgb 13.0 g/dL 12.0 - 16.0 06/05/2017 [facility] ED Abdomen/Pelvis IV contrast only CT ED Abdomen/Pelvis IV contrast only CT Clinical Indication: Fall with lower back pain. Comparison: 10/19/2015 TECHNIQUE: Helical imaging was performed from the diaphragm through the symphysis with multiplanar reformations obtained. IV CONTRAST: 100 cc Omnipaque 300 ORAL CONTRAST: Not given CT Radiation Dose: PAU=[id number] mGy-cm FINDINGS: LOWER CHEST: The lung bases are clear. SOLID ORGANS: The liver, spleen, pancreas, and adrenal glands are unremarkable. The gallbladder is present. The kidneys are unremarkable. Delayed phase images through the kidneys show symmetric excretion of contrast bilaterally. BOWEL: Prior colectomy. No evidence of bowel obstruction. No bowel wall thickening or perienteric inflammation. PERITONEUM: No free intraperitoneal fluid or air. RETROPERITONEUM: No adenopathy by CT size criteria. The aorta is normal. PELVIS: No pelvic mass. The urinary bladder is grossly normal. MUSCULOSKELETAL: Prior transpedicular fusion of L4-L5. Multilevel degenerative disc disease of the lumbar spine. No acute fracture or subluxation. IMPRESSION: 1. No acute abnormality on CT of the abdomen and pelvis with contrast. 2. Changes related to prior colectomy without evidence of obstruction. 3. Prior L4-L5 fusion with multilevel degenerative disc disease of the lumbar spine. SL: [id number] 06/05/2017 - - Read by: Alex Dave MD Dictated Date/time: 06/05/17 11:39 Electronically Signed by: Alex Dave MD 06/05/17 11:45 FINAL REPORT [facility] Brain wo contrast CT Brain wo contrast CT Clinical Indication: Altered mental status. Comparison: Brain MR 07/16/2016 TECHNIQUE: CT images were obtained from the foramen magnum to the vertex without the use of intravenous contrast on a multidetector CT. Axial, coronal and sagittal reformats created. Total exam DLP: 925.34 mGy-cm. DLP means dose length product, a radiation dose metric that does not report individual patient dose, but is a reference value related to the radiation output of the scanner used for this exam. FINDINGS: Calvarium and scalp: No acute fracture, or scalp hematoma. Ventricles and sulci: Mildly widened, consistent with age-related cerebral volume loss. No hydrocephalus. Extra-axial spaces: No acute extra axial hemorrhage, fluid collection or mass effect. BRAIN PARENCHYMA: No acute parenchymal hemorrhage, or large vascular territory infarction. There is no mass effect, midline shift or edema. Paranasal sinuses and mastoid air cells: Paranasal sinuses are unremarkable. The mastoid air cells are clear. If there is further concern for intracranial pathology or acute stroke, MRI of the brain may be performed for complete assessment. IMPRESSION: No acute intracranial hemorrhage, mass effect or large vascular territory infarction. SL: [id number] 06/05/2017 - - Read by: Edouard Chan MD Dictated Date/time: 06/05/17 11:38 Electronically Signed by: Edouard Chan MD 06/05/17 11:41 FINAL REPORT [facility] Pelvis AP DX Pelvis AP DX Study: Pelvis, single view Clinical Indication: - fall, coccyx pain confusion 6 weeks ago and a week ago she fell and hurt her back Comparison: None FINDINGS: Single frontal view of the pelvis shows no acute displaced bony fracture or joint dislocation. Chain sutures project over the pelvis. Postoperative changes of fusion at L4-L5 are seen. Degenerative disc disease in the lumbar spine is seen. IMPRESSION: No acute bony abnormality of the pelvis. SL: [id number] 06/05/2017 - - Read by: Jacobo Chávez MD Dictated Date/time: 06/05/17 10:34 Electronically Signed by: Jacobo Chávez MD 06/05/17 10:35 FINAL REPORT [facility] Chest 1view DX Chest 1view DX Study: Chest 1view DX Clinical Indication: - fall, ams confusion 6 weeks ago and a week ago she fell and hurt her back Comparison: Chest x-ray from 11/27/2015 FINDINGS: The cardiac silhouette is normal in size. The lungs are clear and without consolidation or congestion. No pleural effusion or pneumothorax is seen. The osseous structures are unremarkable. IMPRESSION: No acute cardiopulmonary disease. SL: [id number] 06/05/2017 - - Read by: Jacobo Chávez MD Dictated Date/time: 06/05/17 10:33 Electronically Signed by: Jacobo Chávez MD 06/05/17 10:34 FINAL REPORT [facility] Breast Complete Bobby US Breast Complete Bobby US COMPLETE ULTRASOUND OF BOTH BREASTS AND AXILLA: 04/03/2017 CLINICAL: Prior right biopsy implants removal pending. COMPARISON:Comparison is made to exams dated: 04/03/2017 mammogram, 01/27/2016 ultrasound biopsy, 01/27/2016 mammogram, 01/20/2016 ultrasound, and 01/20/2016 mammogram - [facility]. TECHNIQUE: Color flow and real-time ultrasound of both breasts four quadrants, retroareolar, and axilla regions were performed. Masters scale images of the real- time examination were reviewed. FINDINGS: Bilateral prepectoral silicone implants are present. There is a small benign biopsied mass right breast at 3 o'clock that is not significantly changed and correlates with ultrasound. Several areas of extracapsular silicone are present along the right upper outer implant. No abnormalities were seen sonographically in the left breast or either axilla. IMPRESSION: BENIGN There is no sonographic evidence of malignancy. The right implant has extracapsular silicone in the upper outer quadrant that correlates with mammography. This is compatible with suspected extracapsular rupture. The patient states she fell on her breast and noticed a clinical change in its appearance. She is meeting with a plastic surgeon this week for bilateral implant removal. A 1 year screening mammogram is recommended.(04/04/2018) The results were reviewed with the patient. This exam was interpreted at [id number] for [facility]. Facundo Harper M.D. jt/:04/03/2017 10:29:04 Wheelchair Van Driver(s): Be Sanchez [facility] letter sent: BI-RADS 1/2 Ultrasound BI-RADS: 2 Benign 04/03/2017 - - Read by: Facundo Harper MD Dictated Date/time: 04/03/17 10:29 Electronically Signed by: Facundo Harper MD 04/03/17 10:29 FINAL REPORT [facility] Breast Mammo Diag BOBBY incl CAD MA Breast Mammo Diag BOBBY incl CAD MA BILATERAL DIGITAL DIAGNOSTIC MAMMOGRAM WITH CAD: 04/03/2017 CLINICAL: Follow up right breast benign bx bilateral implant removal surgery anticipated. Current study was evaluated with a Computer Aided Detection (CAD) system. COMPARISON:Comparison is made to exams dated: 01/27/2016 mammogram, 01/20/2016 mammogram, and 01/20/2016 ultrasound - [facility]. TECHNIQUE: Mammographic views were obtained using digital acquisition. C[employer] Version 1.3 was utilized for computer aided detection. The tissue of both breasts is almost entirely fat. FINDINGS: Bilateral silicone prepectoral breast implants are noted and imaged with routine and implant displaced views. Implants obscure breast parenchyma making mammographic interpretation difficult. There is a biopsy clip in the right breast. Right implant appears larger in the interim and extracapsular silicone along the upper/outer aspect of the implant has increased as well. No significant masses, calcifications, or other findings are seen in either breast. IMPRESSION: INCOMPLETE: NEEDS ADDITIONAL IMAGING EVALUATION No definite mammographic evidence of malignancy. Right breast implant increase in size with increased extracapsular silicone favors implant rupture. Ultrasound evaluation is pending. The patient is planning on having both implants removed in the near future. The results were reviewed with the patient. SUMMARY: Ultrasound will be performed at this time; please see dedicated separate report. This exam was interpreted at [id number] for [facility] Breast [place]. Facundo Harper M.D. 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 Three-dimensional rotational images were also prepared. FINDINGS: ANTERIOR CIRCULATION: INTERNAL CAROTID ARTERIES: No focal stenosis or aneurysm. MIDDLE CEREBRAL ARTERIES: No focal stenosis or aneurysm in the M1 and M2 segments. The peripheral MCA branches appear normal. ANTERIOR CEREBRAL ARTERIES: No focal stenosis or aneurysm. Normal anterior communicating artery. Mildly hypoplastic right A1 segment. POSTERIOR CIRCULATION: VERTEBROBASILAR SYSTEM: Mildly tortuous without focal stenosis or aneurysm. POSTERIOR CEREBRAL ARTERIES: No focal stenosis or aneurysm. 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 SUPERIOR CEREBELLAR ARTERIES: Normal in appearance. AICA: Normal in appearance. PICA: Normal in appearance. IMPRESSION: 1. 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 2. Tortuous vertebrobasilar system without focal stenosis or aneurysm. 3. Hypoplastic right A1 segment. 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 Dizziness. Comparison: 06/14/2014. TECHNIQUE: Multiplanar noncontrast MRI of the brain was performed on a 1.5 Feli magnet. FINDINGS: BRAIN PARENCHYMA: General: Mild diffuse age-appropriate atrophy. Ventricles: Normal size and appearance. Acute Findings: No evidence of acute intracranial hemorrhage, mass, mass effect, midline shift, or extra-axial fluid collection. Diffusion Weighted Images: No evidence of restricted diffusion to suggest acute or subacute ischemia. Gradient Images: No abnormal hypointense signal to suggest old hemorrhage. Midline Structures: The pituitary gland, corpus callosum, and remaining midline structures are normal. VASCULATURE: Arterial: The major intracranial arterial flow voids are present. Venous: The dural venous sinus flow voids are grossly normal. SOFT TISSUES AND ORBITS: The visualized portions are normal. PARANASAL SINUSES: The visualized portions of the paranasal sinuses are clear. MASTOIDS: Clear. IMPRESSION: 1. Mild diffuse age-appropriate atrophy. 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 Severe neck pain. Blackouts. Comparison: 12/27/2014. TECHNIQUE: Multiplanar noncontrast T1, T2, and STIR weighted MRI of the cervical spine was performed. FINDINGS: ALIGNMENT AND GENERAL ASSESSMENT: Mild motion artifact. Loss of normal cervical lordosis may be secondary to positioning or muscle spasm. Mild to moderate diffuse cervical spondylosis, facet arthrosis, and uncovertebral joint hypertrophy. The cervical spinal cord signal is normal after accounting for mild artifact. The prevertebral and paraspinal soft tissues are normal. DISC SPACES: C2-C3:No significant disc protrusion, spinal canal narrowing, or neural foraminal narrowing. No important interval change. C3-C4: No significant disc protrusion, spinal canal narrowing, or neural foraminal narrowing. No important interval change. C4-C5: Minimal bulging disc/osteophyte complex causing mild anterior thecal sac compression without significant spinal canal narrowing. Mild to moderate bilateral neural foraminal narrowing. No important interval change. C5-C6: Mild bulging disc/osteophyte complex causing moderate spinal canal narrowing with minimum AP spinal canal diameter of 8 mm. Moderate bilateral neural foraminal narrowing. No important interval change. C6-C7: Mild bulging disc/osteophyte complex causing mild spinal canal narrowing with minimum AP spinal canal diameter of 9 mm. Moderate to severe left neural foraminal narrowing. Mild to moderate right neural foraminal narrowing. No important interval change C7-T1: No significant disc protrusion or spinal canal narrowing. Moderate left neural foraminal narrowing. No significant right neural foraminal narrowing. IMPRESSION: Mild to moderate cervical spondylosis, facet arthrosis, uncovertebral joint hypertrophy, and multilevel bulging disc/osteophyte complexes. Mild to moderate spinal canal narrowing and moderate to severe neural foraminal narrowing are seen at several levels as above individually described, but without definite interval change. SL: TPAINTER- 07/16/2016 - - Read by: Braulio Rothman MD Dictated Date/time: 07/17/16 15:40 Electronically Signed by: Braulio Rothman MD 07/17/16 15:49 FINAL REPORT [facility] Breast BX Uni w Clip Primary Side US Breast BX Uni w Clip Primary Side US - BREAST BX UNI W CLIP PRIMARY SIDE US/R ULTRASOUND GUIDED BIOPSY RIGHT BREAST WITH MARKING DEVICE INSERTED AND POST DIGITAL MAMMOGRAPHIC IMAGIN01/27/2016 CLINICAL: Mass. Correlation is made to exam dated: 01/27/2016 mammogram - [facility]. An ultrasound guided biopsy using real-time ultrasound was performed for the 4 mm nodule located in the right breast at 3 o'clock middle depth 1 cm from the nipple. This was described on the previous ultrasound report. The skin was prepped in the usual manner. Local anesthetic was administered to the access site. A skin jeanette was made in the breast. The abnormality was approached from the lateral aspect. A 14 gauge biopsy needle was placed adjacent to the abnormality through an introducer device under ultrasound guidance. Once the needle was documented to be in the correct location, two specimens were obtained using an Achieve automated firing device. A S-shaped clip was inserted into the biopsy cavity. A sterile dressing was applied to the access site. Post procedure digital mammographic imaging demonstrates the clip at the targeted area and partial removal of the abnormality. The specimens were sent to the laboratory for pathological analysis. IMPRESSION: ULTRASOUND GUIDED BIOPSY BENIGN Ultrasound guided biopsy of the 4 mm nodule in the right breast at 3 o'clock middle depth 1 cm from the nipple was successful with no apparent post procedure complications. Pathology indicates: " - Fibrocystic changes with papillomatosis, calcification and focal adenosis." Pathology results are benign and concordant with imaging findings. A follow-up ultrasound in 6 months is recommended to demonstrate stability. Juliano Garland M.D. ap/:02/02/2016 08:16:06 Wheelchair Van Driver: Be Sanchez, [facility] This exam was dictated and interpreted by [id number] for [facility], 12. letter sent: Post Bx Results 01/27/2016 - - Read by: Juliano Garland MD Dictated Date/time: 02/02/16 08:16 Electronically Signed by: Juliano Garland MD 02/02/16 08:16 FINAL REPORT [facility] Digital Mammo DX Uni MA Digital Mammo DX Uni MA - DIGITAL MAMMO DX UNI MA/R UNILATERAL RIGHT DIGITAL DIAGNOSTIC MAMMOGRAM WITH CAD POST-PROCEDURE IMAGING FOR MARKER PLACEMENT: 01/27/2016 CLINICAL: Post Biopsy Clip. Current study was evaluated with a Computer Aided Detection (CAD) system. Comparison is made to exam dated: 01/20/2016 mammogram - [facility]. Post biopsy mammogram demonstrates the S shaped clip in appropriate position. The right prepectoral silicone implant is intact. IMPRESSION: POST PROCEDURE MAMMOGRAM FOR MARKER PLACEMENT Post biopsy clip placement as above. Juliano Garland M.D. ap/:01/27/2016 14:47:10 Wheelchair Van Driver: Fallon Simon, [facility] This exam was dictated and interpreted by [id number] for [facility]. Mammogram BI-RADS: Post-procedure mammogram for marker placement 01/27/2016 - - Read by: Juliano Garland MD Dictated Date/time: 01/27/16 14:47 Electronically Signed by: Juliano Garland MD 01/27/16 14:47 FINAL REPORT [facility] Breast Complete Bobby US Breast Complete Bobby US - BREAST COMPLETE BOBBY US ULTRASOUND OF BOTH BREASTS AND BOTH AXILLA: 01/20/2016 CLINICAL: Encapsulated silicone implants abnormal mammogram, mammographic nodule/density. Comparison is made to exam dated: 01/20/2016 mammogram - [facility]. Color flow and real-time ultrasound of both breasts and both axilla were performed. Masters scale images of the real-time examination were reviewed. For both breasts, all 4 quadrants, the retroareolar region and axilla are evaluated in this exam. There are two small benign cysts right breast at 10 and 11 o'clock that correlate with mammography. Bilateral prepectoral silicone implants are present. No obvious rupture is identified. The implants themselves correspond to the patient's area of concern of hardness in both breasts. There is a 4 mm oval mass in the right breast at 3 o'clock middle depth 1 cm from the nipple. This oval mass is hypoechoic with internal echoes. This correlates with mammography findings. There are calcifications within the mass. Color flow imaging demonstrates that there is no vascularity present. No abnormalities were seen sonographically in the left breast or either axilla. IMPRESSION: SUSPICIOUS OF MALIGNANCY - FOLLOW-UP RECOMMENDED The 4 mm oval mass in the right breast is at an intermediate suspicion for malignancy. An ultrasound guided biopsy is recommended. A phone call was made to the physician and the results were reviewed with the patient. SUMMARY: The patient scheduled her procedure prior to leaving the [facility]. Critical findings were called to the physician at 1654 hours on the day of the exam. Facundo orourke/:01/21/2016 08:18:34 Wheelchair Van Driver: Dianna Londono, [facility] This exam was dictated and interpreted by [id number] for [facility]. letter sent: Biopsy Ultrasound BI-RADS: 4b Suspicious abnormality - intermediate suspicion of malignancy 01/20/2016 - - Read by: Facundo Harper MD Dictated Date/time: 01/21/16 08:18 Electronically Signed by: Facundo Harper MD 01/21/16 08:18 FINAL REPORT [facility] Digital Mammo DX Bobby MA Digital Mammo DX Bobby MA - DIGITAL MAMMO DX BOBBY MA BILATERAL DIGITAL DIAGNOSTIC MAMMOGRAM WITH CAD: 01/20/2016 CLINICAL: Encapsulated silicone Implants abnormal mammogram, mammographic nodule/density. Current study was evaluated with a Computer Aided Detection (CAD) system. Exam is read without the benefit of comparison films. Patient states their prior mammogram was performed over 10 years ago and are no longer available. The tissue of both breasts is almost entirely fat. Bilateral silicone prepectoral breast implants are noted and imaged with routine and implant displaced views. Implants obscure breast parenchyma making mammographic interpretation difficult. Scattered densities are noted in both breasts. There are benign calcifications in the right breast. No significant masses, calcifications, or other findings are seen in either breast. IMPRESSION: INCOMPLETE: NEEDS ADDITIONAL IMAGING EVALUATION Scattered densities are noted in both breasts. Further evaluation with bilateral ultrasound is recommended. There is no mammographic abnormality seen in either breast to correspond with the clinical concern of implant hardness, however bilateral ultrasound is recommended. This may represent normal implant capsules or scar tissue. The results were reviewed with the patient. 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 This aids in establishing benignity. The patient should make additional efforts to locate their prior exams. An addendum will be made if additional films are provided. Ultrasound will be performed at this time; please see dedicated separate report. Facundo Harper M.D. jt/:01/20/2016 16:49:25 Wheelchair Van Driver: Torri Puri, [facility] This exam was dictated and interpreted by [id number] for [facility]. Mammogram BI-RADS: 0 Indeterminate 01/20/2016 - - Read by: Facundo Harper MD Dictated Date/time: 01/20/16 16:49 Electronically Signed by: Facundo Harper MD 01/20/16 16:49 FINAL REPORT [facility] CHEM PANEL eGFR 38 mL/min/1.73m2 12/16/2015 Result Comment: The eGFR is calculated using the CKD-EPI formula. In most young, healthy individuals the eGFR will be >90 mL/min/1.73m2. The eGFR declines with age. An eGFR of 60-89 may be normal in some populations, particularly the elderly, for whom the CKD-EPI formula has not been extensively validated. Use of the eGFR is not recommended in the following populations: Individuals with unstable creatinine concentrations, including patients and those with serious co-morbid conditions. Patients with extremes in muscle mass or diet. The data above are obtained from the National Kidney Disease Education Program (NKDEP) which additionally recommends that when the eGFR is used in patients with extremes of body mass index for purposes of drug dosing, the eGFR should be multiplied by the estimated BMI. [facility] CHEM PANEL Calcium Lvl 9.3 mg/dL 8.5 - 10.5 12/16/2015 [facility] CHEM PANEL Chloride Lvl 101 meq/L 95 - 109 12/16/2015 [facility] CHEM PANEL CO2 30 meq/L 24 - 32 12/16/2015 [facility] CHEM PANEL Creatinine Lvl 1.38 mg/dL 0.50 - 1.40 12/16/2015 [facility] CHEM PANEL Sodium Lvl 138 meq/L 135 - 145 12/16/2015 [facility] CHEM PANEL Potassium Lvl 3.9 meq/L 3.5 - 5.1 12/16/2015 [facility] CHEM PANEL Glucose Lvl 108 mg/dL 70 - 99 12/16/2015 [facility] CHEM PANEL BUN 26 mg/dL 7 - 22 12/16/2015 [facility] CHEM PANEL AGAP 10.9 meq/L 10.0 - 20.0 12/16/2015 [facility] SPECIAL CHEMISTRY Hgb A1C 6.0 % <=5.6 % 12/16/2015 [facility] HEMATOLOGY Basophils # 0.1 K/CMM 0.0 - 0.2 11/27/2015 [facility] HEMATOLOGY Eosinophils # 0.1 K/CMM 0.0 - 0.5 11/27/2015 [facility] HEMATOLOGY Lymphocytes # 1.8 K/CMM 1.0 - 5.5 11/27/2015 [facility] HEMATOLOGY Monocytes # 0.7 K/CMM 0.0 - 0.8 11/27/2015 [facility] HEMATOLOGY Segs-Bands # 10.1 K/CMM 1.5 - 8.1 11/27/2015 [facility] HEMATOLOGY Basophils 0.6 % 0.0 - 1.0 11/27/2015 [facility] HEMATOLOGY Monocytes 5.2 % 2.0 - 12.0 11/27/2015 [facility] HEMATOLOGY Eosinophils 0.9 % 0.0 - 4.0 11/27/2015 [facility] HEMATOLOGY Lymphocytes 14.1 % 20.0 - 40.0 11/27/2015 [facility] Segs 79.2 % 45.0 - 75.0 11/27/2015 [facility] MPV 8.1 fL 7.4 - 10.4 11/27/2015 [facility] Platelet 395 K/CMM 133 - 450 11/27/2015 [facility] MCHC 33.4 g/dL 32.0 - 36.0 11/27/2015 [facility] MCH 31.9 pg 27.0 - 31.0 11/27/2015 [facility] RDW 13.4 % 11.5 - 14.5 11/27/2015 [facility] MCV 95.4 fL 80.0 - 98.0 11/27/2015 [facility] Hct 40.1 % 36.0 - 48.0 11/27/2015 [facility] WBC 12.8 K/CMM 3.7 - 10.4 11/27/2015 [facility] Hgb 13.4 g/dL 12.0 - 16.0 11/27/2015 [facility] RBC 4.20 M/CMM 4.20 - 5.40 11/27/2015 [facility] Chest 2 views DX Chest 2 views DX Patient Name: FREDA CHAU : 1945; Age: 70 years y/o Female MR: [id number] * CHEST, 2 views HISTORY: leukocytosis, fatigue, dyspnea on exertion, ; COMPARISON: 06/14/2014. TECHNIQUE: Frontal and lateral radiographs of the chest were obtained. FINDINGS: The lungs are clear. There are no pleural effusions. The heart and pulmonary vasculature are within normal limits. There are mild scattered degenerative changes involving the thoracic spine. The regional skeleton is otherwise unremarkable. There are bilateral mammary prostheses with calcified capsules, more extensive on the left. IMPRESSION: 1. No active disease. 2. Bilateral mammary prostheses with calcified capsules. SL: [id number] 11/27/2015 - - Read by: Osbaldo Jha MD Dictated Date/time: 11/27/15 15:54 Electronically Signed by: Osbaldo Jha MD 11/27/15 15:56 FINAL REPORT [facility] Retroperitoneal Complete US Retroperitoneal Complete US RETROPERITONEAL COMPLETE ULTRASOUND HISTORY: N20.1 Calculus of ureter; COMPARISON: CT abdomen/pelvis dated 10/19/2015 TECHNIQUE: Multiple longitudinal and transverse real time sonographic images of the kidneys and urinary bladder are obtained. FINDINGS: KIDNEYS: The kidneys are normal in size, shape, contour, and position. The cortices are normal in thickness and the corticomedullary differentiation is maintained. No hydronephrosis. A tiny 7 mm simple cyst of the left renal cortex is noted. The right kidney measures 8.9 x 4.3 x 5.3 cm. The left kidney measures 9.5 x 3.8 x 3.4 cm. BLADDER: The bladder is well-distended and unremarkable. IMPRESSION: 1. No hydronephrosis. 2. Tiny subcentimeter cortical cyst of the left kidney. SL: [id number] 10/28/2015 - - Read by: Simon Montague MD Dictated Date/time: 10/28/15 13:47 Electronically Signed by: Simon Montague MD 10/28/15 13:49 FINAL REPORT [facility] URINE AND STOOL UA Urobilinogen <=1.0 mg/dL 0.1 - 1.0 10/19/2015 [facility] URINE AND STOOL UA Blood Negative (10/18/15 11:23 PM) Negative 10/19/2015 [facility] URINE AND STOOL UA Bili Negative *NA* (10/18/15 11:23 PM) Negative 10/19/2015 [facility] URINE AND STOOL UA Sq Epi Occasional /LPF Few /LPF 10/19/2015 [facility] URINE AND STOOL UA Leuk Est Negative (10/18/15 11:23 PM) Negative 10/19/2015 [facility] URINE AND STOOL UA Nitrite Negative (10/18/15 11:23 PM) Negative 10/19/2015 [facility] URINE AND STOOL UA Color Ltyellow 10/19/2015 [facility] URINE AND STOOL UA WBC 1 /HPF 0 - 5 10/19/2015 [facility] URINE AND STOOL UA RBC null 0 - 2 10/19/2015 [facility] URINE AND STOOL UA Turbidity Clear (10/18/15 11:23 PM) Clear 10/19/2015 [facility] URINE AND STOOL UA Spec Grav 1.017 <=1.030 10/19/2015 [facility] URINE AND STOOL UA pH 6.0 5.0 - 8.0 10/19/2015 [facility] URINE AND STOOL UA Protein Negative mg/dL Negative mg/dL 10/19/2015 [facility] URINE AND STOOL UA Glucose Negative mg/dL Negative mg/dL 10/19/2015 [facility] URINE AND STOOL UA Ketones 80 mg/dL Negative mg/dL 10/19/2015 [facility] CHEM PANEL Lipase Lvl 74 unit/L 73 - 393 10/19/2015 [facility] CHEM PANEL A/G Ratio 1.1 0.7 - 1.6 10/19/2015 [facility] CHEM PANEL Globulin 3.6 g/dL 2.0 - 4.0 10/19/2015 [facility] CHEM PANEL B/C Ratio 17 6 - 25 10/19/2015 [facility] CHEM PANEL AGAP 17.2 meq/L 10.0 - 20.0 10/19/2015 [facility] CHEM PANEL eGFR 35 mL/min/1.73m2 10/19/2015 Result Comment: The eGFR is calculated using the CKD-EPI formula. In most young, healthy individuals the eGFR will be >90 mL/min/1.73m2. The eGFR declines with age. An eGFR of 60-89 may be normal in some populations, particularly the elderly, for whom the CKD-EPI formula has not been extensively validated. Use of the eGFR is not recommended in the following populations: Individuals with unstable creatinine concentrations, including patients and those with serious co-morbid conditions. Patients with extremes in muscle mass or diet. The data above are obtained from the National Kidney Disease Education Program (NKDEP) which additionally recommends that when the eGFR is used in patients with extremes of body mass index for purposes of drug dosing, the eGFR should be multiplied by the estimated BMI. [facility] CHEM PANEL ALT 32 unit/L 0 - 65 10/19/2015 [facility] CHEM PANEL Albumin Lvl 3.9 g/dL 3.5 - 5.0 10/19/2015 [facility] CHEM PANEL Calcium Lvl 9.9 mg/dL 8.5 - 10.5 10/19/2015 [facility] CHEM PANEL Total Protein 7.5 g/dL 6.4 - 8.4 10/19/2015 [facility] CHEM PANEL CO2 19 meq/L 24 - 32 10/19/2015 [facility] CHEM PANEL Bili Total 1.0 mg/dL 0.2 - 1.3 10/19/2015 [facility] CHEM PANEL Alk Phos 86 unit/L 39 - 136 10/19/2015 [facility] CHEM PANEL Glucose Lvl 157 mg/dL 70 - 99 10/19/2015 [facility] CHEM PANEL AST 15 unit/L 0 - 37 10/19/2015 [facility] CHEM PANEL Chloride Lvl 105 meq/L 95 - 109 10/19/2015 [facility] CHEM PANEL Potassium Lvl 3.2 meq/L 3.5 - 5.1 10/19/2015 [facility] CHEM PANEL Creatinine Lvl 1.48 mg/dL 0.50 - 1.40 10/19/2015 [facility] CHEM PANEL Sodium Lvl 138 meq/L 135 - 145 10/19/2015 [facility] CHEM PANEL BUN 25 mg/dL 7 - 22 10/19/2015 [facility] CHEM PANEL Amylase Lvl 37 unit/L 25 - 115 10/19/2015 [facility] HEMATOLOGY Lymphocytes 14.3 % 20.0 - 40.0 10/19/2015 [facility] HEMATOLOGY Eosinophils 0.4 % 0.0 - 4.0 10/19/2015 [facility] HEMATOLOGY Monocytes 6.3 % 2.0 - 12.0 10/19/2015 [facility] HEMATOLOGY Segs 78.6 % 45.0 - 75.0 10/19/2015 [facility] HEMATOLOGY Lymphocytes # 1.9 K/CMM 1.0 - 5.5 10/19/2015 [facility] HEMATOLOGY Segs-Bands # 10.2 K/CMM 1.5 - 8.1 10/19/2015 [facility] HEMATOLOGY Basophils 0.4 % 0.0 - 1.0 10/19/2015 [facility] HEMATOLOGY Monocytes # 0.8 K/CMM 0.0 - 0.8 10/19/2015 [facility] HEMATOLOGY Eosinophils # 0.1 K/CMM 0.0 - 0.5 10/19/2015 [facility] HEMATOLOGY MPV 8.7 fL 7.4 - 10.4 10/19/2015 [facility] HEMATOLOGY RBC 4.45 M/CMM 4.20 - 5.40 10/19/2015 [facility] HEMATOLOGY Hct 42.0 % 36.0 - 48.0 10/19/2015 [facility] HEMATOLOGY WBC 13.0 K/CMM 3.7 - 10.4 10/19/2015 [facility] HEMATOLOGY Hgb 13.9 g/dL 12.0 - 16.0 10/19/2015 [facility] HEMATOLOGY Platelet 362 K/CMM 133 - 450 10/19/2015 [facility] MCH 31.2 pg 27.0 - 31.0 10/19/2015 [facility] HEMATOLOGY MCV 94.3 fL 80.0 - 98.0 10/19/2015 [facility] HEMATOLOGY MCHC 33.0 g/dL 32.0 - 36.0 10/19/2015 [facility] HEMATOLOGY RDW 13.8 % 11.5 - 14.5 10/19/2015 [facility] Abdomen/Pelvis wo IV contrast CT Abdomen/Pelvis wo IV contrast CT Patient Name: FREDA CHAU : 1945; Age: 70 years Female MR: [id number] Study: Abdomen/Pelvis wo IV contrast CT 10/18/2015 10:29 PM CDT Clinical Indication: Abdominal pain, acute. PT c/o acute RLQ pain x 3 hours with nausea/vomiting. Pt restless and moaning in triage in pain 03/07. COMPARISON: November 2014. May 2014. 01/05/2014. TECHNIQUE: Helical imaging was performed diaphragm through the symphysis with multiplanar reformations obtained without IV contrast. FINDINGS: LOWER CHEST: The lung bases are clear. Bilateral breast implants partially visualized. Gastric distention. ABDOMEN: No free air. LIVER: Normal. BILIARY TREE: Normal. GALLBLADDER: Normal. PANCREAS: Normal. SPLEEN: Normal. ADRENALS: Normal. KIDNEYS: Right hydronephrosis, hydroureter and perinephric stranding. PELVIS: Right UVJ stone measures 3 to 4 mm, 307 Hounsfield units. The bladder is normally distended. BOWEL: No small bowel obstruction. Sigmoid anastomosis with colectomy change. PERITONEUM: No free intraperitoneal fluid. RETROPERITONEUM: No aortic aneurysm. MUSCULOSKELETAL: Lower lumbar laminectomy with posterior fusion. IMPRESSION: 1. Right hydronephrosis and hydroureter secondary to a right UVJ stone. 2. Postsurgical change to the colon. 3. Lower lumbar laminectomy and fusion. SL: [id number] 10/19/2015 - - Read by: Vinicio Lawson MD Dictated Date/time: 10/19/15 00:44 Electronically Signed by: Vinicio Lawson MD 10/19/15 00:48 FINAL REPORT [facility] Spine cervical wo contrast MRI Spine cervical wo contrast MRI MRI of the cervical spine without contrast: Exam reason: 723.4 Brachial Neuritis or Radiculitis Nos See Clinic Indication Multiple sagittal T1 and T2-weighted images were obtained. In addition, axial gradient echo T2* and 3-D FSE T2-weighted images were obtained. Cervical vertebral body heights are well-maintained. Disc desiccation is noted at all cervical intervertebral disc spaces. Narrowing of the disc spaces at C3- C4, C4-C5, C5-C6, C6-C7 and C7-T1 is noted associated with marrow signal changes in the vertebrae related to degenerative disc disease. Cervical cord caliber and signal are normal. Findings will be described per level as follows: At C2-C3, there is no acute disc herniation, significant central spinal stenosis or neural foraminal stenosis noted. At C3-C4, disc osteophyte complex ventrally ligamentous thickening dorsally; there is no acute disc herniation, significant central spinal stenosis or neural foraminal stenosis noted. At C4-C5, disc osteophyte complex is noted ventrally incompletely effacing the anterior subarachnoid space. Uncovertebral joint spurring is noted bilaterally resulting in neural foraminal stenosis. Ligamentous thickening is noted dorsally. There is no acute disc herniation or significant central spinal stenosis. At C5-C6, disc osteophyte complex is noted ventrally effacing the ventral surface of the cervical cord at this level. Ligamentous thickening is noted dorsally. Uncovertebral joint spurring is noted bilaterally resulting in neural foraminal stenosis at this level. No acute disc herniation is noted. At C6-C7,disc osteophyte complex is noted ventrally incompletely effacing the anterior subarachnoid space. Uncovertebral joint spurring is noted bilaterally resulting in neural foraminal stenosis. Ligamentous thickening is noted dorsally. There is no acute disc herniation or significant central spinal stenosis. At C7-T1, there is bony encroachment upon the neural foramen on the left resulting in neural foraminal stenosis. The right neural foramen is well- maintained. No central spinal stenosis or acute disc herniation. IMPRESSION: 1. Cervical spondylosis and cervical degenerative disc disease are noted as detailed above. 2. Bilateral neural foraminal stenosis is noted at C4-C5, C5-C6 and C6-C7. Unilateral neural foraminal stenosis is noted on the left at C7-T1. 3. Effacement of the ventral cord at C5-C6 is noted. SL:12 12/27/2014 - - Read by: David Woods MD Dictated Date/time: 12/28/14 11:28 Electronically Signed by: David Woods MD 12/28/14 11:41 FINAL REPORT [facility] Spine lumbar wo contrast CT Spine lumbar wo contrast CT CT LUMBAR SPINE WITHOUT CONTRAST INDICATION: Lumbar radiculopathy COMPARISON: CT abdomen/pelvis 06/14/2014 DISCUSSION: The usual five non-rib bearing lumbar vertebral bodies are presumed present. Alignment: There is mild levoscoliosis of the lumbar spine. Vertebral body alignment is otherwise within normal limits. Vertebral bodies: There is posterior fusion of L4 and L5, with bilateral rods and pedicle screws. There is no evidence of hardware loosening or failure. The rods do not violate the foramina or spinal canal. An interbody fusion device is place at L4-L5. There is evidence of expected osseous bridging within and along the margins of the IFD. Degenerative endplate changes are noted throughout the lumbar spine. Prominent sclerotic changes are noted at L2-L3. There are no compression or displaced fractures. Soft tissues: A 4 mm right renal calculus, without hydronephrosis. The visible paraspinal soft tissues are otherwise grossly unremarkable. Disc spaces, foramina and spinal canal: T12-L1: The disc space is maintained. There is mild bilateral facet arthrosis. The spinal canal and foramina are grossly patent. L1-L2: The disc space is maintained. Mild vacuum disc phenomenon is noted. Asymmetric left disc bulge and facet arthrosis result in mild left foraminal stenosis. The spinal canal and right foramen are patent. L2-L3: There is mild disc space narrowing. Asymmetric right disc bulge and facet arthrosis result in mild bilateral foraminal stenosis, right worse than left. The spinal canal is grossly patent. L3-L4: The disc space is maintained. Disc bulge and facet arthrosis result in mild bilateral foraminal stenosis. The spinal canal is grossly patent. L4-L5: The vertebral bodies are fused. There is osseous fusion of the facet joints. Facet hypertrophy results in mild bilateral foraminal stenosis, right worse than left. Spinal canal is grossly patent. L5-S1: There is marked disc space narrowing. Facet arthrosis and osteophytosis result in moderate bilateral foraminal stenosis. The spinal canal is grossly patent. IMPRESSION: 1. Postoperative changes at L4-L5, as described. 2. Spondylosis results in varying degrees of foraminal stenosis. Foraminal stenosis appears moderate at worst, at L5-S1. Grossly, there is no significant spinal canal stenosis. SL: 16 12/23/2014 - - Read by: Levi Hill MD Dictated Date/time: 12/23/14 14:40 Electronically Signed by: Levi Hill MD 12/23/14 14:59 FINAL REPORT [facility] Bone Density Scan Bone Density Scan DEXA Bone Mineral Density Scan: HX: 733.0 OSTEOPOROSIS / previous hysterectomy Images of the axial lumbar spine and left hip have been performed using [employer] SL scanner. The left hip bone mineral density is 106% of the expected reference peak bone mass with a T-score of 0.4. Left hip BMD is 0.996 g/cm2. Femoral neck BMD is 0.780 g/cm2. The axial lumbar bone mineral density is 121% of the expected peak bone mass with a T-score of 1.9. Axial lumbar average BMD is 1.230 g/cm2 In the lumbar examination is limited to the first lumbar vertebrae due to the presence of pedicle screw fusions at L4 and L5. Examination of the left distal radius/forearm is also performed. The bone mineral density is 96% of the expected peak reference value with T score of - 0.5. BMD=0.540 g/cm2. The forearm 1/3 bone mineral density is 97% of expected peak bone mass with T score of -0.4. IMPRESSION: Bone mineral density within normal limits. The World Health Organization has established that OSTEOPOROSIS occurs at -2.5 or more standard deviations (SD) below peak bone mass (T-score on the Hologic report). OSTEOPENIA (low bone mass) occurs at -1.0 standard deviations to -2.5 standard deviations below peak bone mass. SL: 08/19/2014 - - Read by: Jose Sampson MD Dictated Date/time: 08/20/14 10:53 Electronically Signed by: Jose Sampson MD 08/20/14 10:56 FINAL REPORT [facility] Barium enema DX Barium enema DX Single contrast barium enema: CLINICAL HISTORY: Constipation, intermittent diarrhea. FINDINGS: The family physician film reveals a nonobstructive bowel gas pattern. And transpedicular screws are visualized in the lower lumbar spine. Barium was instilled into the rectum. Just distal to the rectum, anastomosis to the small bowel is visualized. No stricture is visualized at the anastomosis. Findings consistent with patient's history of near complete colectomy. There is moderate dilation of the rectum. There is no significant delay in drainage of administered contrast on the postevacuation images. IMPRESSION: Negative study. Prompt evacuation of the administered contrast is noted. Fluoroscopy Time: 1.5 minutes. SL:13 07/11/2014 - - Read by: Sj Valverde MD Dictated Date/time: 07/11/14 12:09 Electronically Signed by: Sj Valverde MD 07/11/14 14:36 FINAL REPORT [facility] CHEM PANEL Calcium Lvl 9.2 mg/dL 8.5 - 10.5 2014 [facility] CHEM PANEL AGAP 12.0 meq/L 10.0 - 20.0 2014 [facility] CHEM PANEL Chloride Lvl 103 meq/L 95 - 109 2014 [facility] CHEM PANEL CO2 27 meq/L 24 - 32 2014 [facility] CHEM PANEL eGFR 41 mL/min/1.73m2 2014 1Result Comment: The eGFR is calculated using the CKD-EPI formula. In most young, healthy individuals the eGFR will be >90 mL/min/1.73m2. The eGFR declines with age. An eGFR of 60-89 may be normal in some populations, particularly the elderly, for whom the CKD-EPI formula has not been extensively validated. Use of the eGFR is not recommended in the following populations: Individuals with unstable creatinine concentrations, including patients and those with serious co-morbid conditions. Patients with extremes in muscle mass or diet. The data above are obtained from the National Kidney Disease Education Program (NKDEP) which additionally recommends that when the eGFR is used in patients with extremes of body mass index for purposes of drug dosing, the eGFR should be multiplied by the estimated BMI. [facility] CHEM PANEL Glucose Lvl 108 mg/dL 70 - 99 2014 2Interpretive Data: Adult reference range values reflect the clinical guidelines of the [place] [employer]. [facility] CHEM PANEL Potassium Lvl 4.0 meq/L 3.5 - 5.1 2014 [facility] CHEM PANEL Creatinine Lvl 1.3 mg/dL 0.5 - 1.4 2014 [facility] CHEM PANEL Sodium Lvl 138 meq/L 135 - 145 2014 [facility] CHEM PANEL BUN 16 mg/dL 7 - 22 2014 [facility] URINE AND STOOL UA Color Nataliia 06/14/2014 [facility] URINE AND STOOL UA Sq Epi Many /LPF Few /LPF 06/14/2014 [facility] URINE AND STOOL UA Leuk Est Negative (06/14/14 11:46 AM) Negative 06/14/2014 [facility] URINE AND STOOL UA Nitrite Negative (06/14/14 11:46 AM) Negative 06/14/2014 [facility] URINE AND STOOL UA Urobilinogen 4.0 mg/dL 0.1 - 1.0 06/14/2014 [facility] URINE AND STOOL UA Blood Negative (06/14/14 11:46 AM) Negative 06/14/2014 [facility] URINE AND STOOL UA Bili Negative *NA* (06/14/14 11:46 AM) Negative 06/14/2014 [facility] URINE AND STOOL UA Ketones Trace mg/dL Negative mg/dL 06/14/2014 [facility] URINE AND STOOL UA Glucose Negative mg/dL Negative mg/dL 06/14/2014 [facility] URINE AND STOOL UA Protein Negative mg/dL Negative mg/dL 06/14/2014 [facility] URINE AND STOOL UA pH 5.0 5.0 - 8.0 06/14/2014 [facility] URINE AND STOOL UA Spec Grav 1.023 <=1.030 06/14/2014 [facility] URINE AND STOOL UA Turbidity Clear (06/14/14 11:46 AM) Clear 06/14/2014 [facility] URINE AND STOOL UA Mucus Few /LPF None Seen /LPF 06/14/2014 [facility] URINE AND STOOL UA WBC 3 /HPF 0 - 5 06/14/2014 [facility] CARDIAC ENZYMES Troponin-I null 0.00 - 0.40 06/14/2014 [facility] CARDIAC ENZYMES Total CK 54 unit/L 12 - 191 06/14/2014 [facility] CARDIAC ENZYMES CK MB null 0.5 - 3.6 06/14/2014 [facility] CARDIAC ENZYMES CK MB Index null 0.0 - 2.5 06/14/2014 [facility] CHEM PANEL Lactic Acid Lvl 1.8 mMol/L 0.5 - 2.2 06/14/2014 [facility] CHEM PANEL Phosphorus 1.9 mg/dL 2.5 - 4.5 06/14/2014 [facility] CHEM PANEL Lipase Lvl 154 unit/L 73 - 393 06/14/2014 [facility] CHEM PANEL Magnesium Lvl 1.8 mg/dL 1.8 - 2.4 06/14/2014 [facility] ELECTROLYTES Sodium Lvl 131 meq/L 135 - 145 06/14/2014 [facility] ELECTROLYTES Potassium Lvl 3.5 meq/L 3.5 - 5.1 06/14/2014 [facility] ELECTROLYTES Chloride Lvl 97 meq/L 95 - 109 06/14/2014 [facility] ELECTROLYTES eGFR 42 mL/min/1.73m2 06/14/2014 1Result Comment: The eGFR is calculated using the CKD-EPI formula. In most young, healthy individuals the eGFR will be >90 mL/min/1.73m2. The eGFR declines with age. An eGFR of 60-89 may be normal in some populations, particularly the elderly, for whom the CKD-EPI formula has not been extensively validated. Use of the eGFR is not recommended in the following populations: Individuals with unstable creatinine concentrations, including patients and those with serious co-morbid conditions. Patients with extremes in muscle mass or diet. The data above are obtained from the National Kidney Disease Education Program (NKDEP) which additionally recommends that when the eGFR is used in patients with extremes of body mass index for purposes of drug dosing, the eGFR should be multiplied by the estimated BMI. [facility] ELECTROLYTES Globulin 3.8 g/dL 2.0 - 4.0 06/14/2014 [facility] ELECTROLYTES A/G Ratio 0.9 0.7 - 1.6 06/14/2014 [facility] ELECTROLYTES AGAP 13.5 meq/L 10.0 - 20.0 06/14/2014 [facility] ELECTROLYTES B/C Ratio 20 6 - 25 06/14/2014 [facility] ELECTROLYTES Bili Total 1.7 mg/dL 0.2 - 1.3 06/14/2014 [facility] ELECTROLYTES AST 54 unit/L 0 - 37 06/14/2014 [facility] ELECTROLYTES Alk Phos 190 unit/L 39 - 136 06/14/2014 [facility] ELECTROLYTES Total Protein 7.1 g/dL 6.4 - 8.4 06/14/2014 [facility] ELECTROLYTES Albumin Lvl 3.3 g/dL 3.5 - 5.0 06/14/2014 [facility] ELECTROLYTES ALT 106 unit/L 0 - 65 06/14/2014 [facility] ELECTROLYTES CO2 24 meq/L 24 - 32 06/14/2014 [facility] ELECTROLYTES Calcium Lvl 8.9 mg/dL 8.5 - 10.5 06/14/2014 [facility] ELECTROLYTES Creatinine Lvl 1.3 mg/dL 0.5 - 1.4 06/14/2014 [facility] ELECTROLYTES BUN 26 mg/dL 7 - 22 06/14/2014 [facility] ELECTROLYTES Glucose Lvl 134 mg/dL 70 - 99 06/14/2014 2Interpretive Data: Adult reference range values reflect the clinical guidelines of the [place] [employer]. [facility] PTT 26.5 s 22.9 - 35.8 06/14/2014 4Interpretive Data: Heparin Therapeutic Range: 57 - 92 Seconds [facility] PT 12.4 s 12.0 - 14.7 06/14/2014 [facility] INR 0.93 0.85 - 1.17 06/14/2014 3Interpretive Data: RECOMMENDED RANGES FOR PROTIME INR: 2.0-3.0 for most medical and surgical thromboembolic states. 2.5-3.5 for artificial heart valves and recurrent embolism. INR SHOULD BE USED ONLY FOR PATIENTS ON STABLE ANTICOAGULANT THERAPY. [facility] Platelet 226 K/CMM 133 - 450 06/14/2014 [facility] MPV 9.1 fL 7.4 - 10.4 06/14/2014 [facility] RDW 14.4 % 11.5 - 14.5 06/14/2014 [facility] MCH 31.0 pg 27.0 - 31.0 06/14/2014 [facility] MCV 93.5 fL 80.0 - 98.0 06/14/2014 [facility] MCHC 33.2 g/dL 32.0 - 36.0 06/14/2014 [facility] RBC 4.04 M/CMM 4.20 - 5.40 06/14/2014 [facility] Hgb 12.5 g/dL 12.0 - 16.0 06/14/2014 [facility] Hct 37.8 % 36.0 - 48.0 06/14/2014 [facility] WBC 12.2 K/CMM 3.7 - 10.4 06/14/2014 [facility] Monocytes # 0.1 K/CMM 0.0 - 0.8 06/14/2014 [facility] Eosinophils # 0.2 K/CMM 0.0 - 0.5 06/14/2014 [facility] Lymphocytes # 0.3 K/CMM 1.0 - 5.5 06/14/2014 [facility] Lymphocytes 2.4 % 20.0 - 40.0 06/14/2014 [facility] Monocytes 1.2 % 2.0 - 12.0 06/14/2014 [facility] Segs 94.6 % 45.0 - 75.0 06/14/2014 [facility] Basophils 0.3 % 0.0 - 1.0 06/14/2014 [facility] HEMATOLOGY Eosinophils 1.5 % 0.0 - 4.0 06/14/2014 [facility] HEMATOLOGY Segs-Bands # 11.5 K/CMM 1.5 - 8.1 06/14/2014 [facility] IMMUNOLOGY [place]-Hep C Ab Negative *NA* (06/14/14 10:55 AM) Negative 06/14/2014 [facility] VIRAL - SEROLOGY Influ B Negative 5 (06/14/14 10:55 AM) Negative 06/14/2014 5Interpretive Data: Influenza A&B Antigen: Due to the low sensitivity of this test a negative result does not exclude influenza virus infection. A diagnosis of influenza should be considered based on a patient's clinical presentation and empiric antiviral treatment should be considered, if indicated. If more conclusive testing is desired, follow-up confirmatory testing with either viral culture or PCR is warranted. [facility] VIRAL - SEROLOGY Influ A Negative (06/14/14 10:55 AM) Negative 06/14/2014 [facility] Abdomen/Pelvis w IV contrast CT Abdomen/Pelvis w IV contrast CT CT ABDOMEN PELVIS WITH CONTRAST: TECHNIQUE: Helical images were done with IV contrast only. FINDINGS: There is no evidence of small bowel obstruction. There is subtotal colectomy with an ileorectal anastomosis. A large amount of feces is noted in the rectum below the anastomosis without definite evidence of a mass. The distal rectum is empty. There is no evidence of abscess, pneumoperitoneum or free intraperitoneal fluid. The liver, gallbladder, spleen, pancreas, kidneys and adrenal glands show no acute abnormalities. A small calyceal stone in lower pole the right kidney is seen. The uterus is absent. Surgical hardware in the lower lumbar spine is noted. Calcified bilateral breast prostheses are seen. There is no significant change compared to the previous CT on 01/05/2014. IMPRESSION: 1. No evidence of small bowel obstruction. 2. Fecal stasis in the rectum below the ileorectal anastomosis. Consider excluding a distal rectal mass. 3. No other acute CT abnormalities in the abdomen or pelvis. SL:13 06/14/2014 - - Read by: Endy Schroeder MD Dictated Date/time: 06/14/14 14:15 Electronically Signed by: Endy Schroeder MD 06/14/14 14:20 FINAL REPORT [facility] Brain wo contrast CT Brain wo contrast CT CT BRAIN WITHOUT CONTRAST: TECHNIQUE: Axial images were done without contrast. FINDINGS: There is no significant parenchymal abnormality, hemorrhage, infarct, mass, or shift. The ventricles and extra-axial spaces are within normal limits. There is no significant osseous abnormality. IMPRESSION: No acute CT abnormality of the brain. SL:06/14/2014 - - Read by: Endy Schroeder MD Dictated Date/time: 06/14/14 11:31 Electronically Signed by: Endy Schroeder MD 06/14/14 11:32 FINAL REPORT [facility] Chest 1view Chest 1view Portable chest: The cardiac silhouette and pulmonary vasculature are within normal limits. The lungs and pleural spaces are clear. There is no significant change compared to 08/09/2005 considering technical differences. IMPRESSION: No acute radiographic abnormality in the chest. SL:06/14/2014 - - Read by: Endy Schroeder MD Dictated Date/time: 06/14/14 11:27 Electronically Signed by: Endy Schroeder MD 06/14/14 11:27 FINAL REPORT [facility] CHEM PANEL Amylase Lvl 25 unit/L 25 - 115 01/09/2014 [facility] CHEM PANEL Lipase Lvl 102 unit/L 73 - 393 01/09/2014 [facility] ELECTROLYTES AGAP 10.3 meq/L 10.0 - 20.0 01/09/2014 [facility] ELECTROLYTES B/C Ratio 11 6 - 25 01/09/2014 [facility] ELECTROLYTES Globulin 3.1 g/dL 2.0 - 4.0 01/09/2014 [facility] ELECTROLYTES A/G Ratio 0.9 0.7 - 1.6 01/09/2014 [facility] ELECTROLYTES eGFR 57 mL/min/1.73m2 01/09/2014 1Result Comment: The eGFR is calculated using the CKD-EPI formula. In most young, healthy individuals the eGFR will be >90 mL/min/1.73m2. The eGFR declines with age. An eGFR of 60-89 may be normal in some populations, particularly the elderly, for whom the CKD-EPI formula has not been extensively validated. Use of the eGFR is not recommended in the following populations: Individuals with unstable creatinine concentrations, including patients and those with serious co-morbid conditions. Patients with extremes in muscle mass or diet. The data above are obtained from the National Kidney Disease Education Program (NKDEP) which additionally recommends that when the eGFR is used in patients with extremes of body mass index for purposes of drug dosing, the eGFR should be multiplied by the estimated BMI. [facility] ELECTROLYTES Sodium Lvl 141 meq/L 135 - 145 01/09/2014 [facility] ELECTROLYTES Potassium Lvl 3.3 meq/L 3.5 - 5.1 01/09/2014 [facility] ELECTROLYTES Chloride Lvl 110 meq/L 95 - 109 01/09/2014 [facility] ELECTROLYTES CO2 24 meq/L 24 - 32 01/09/2014 [facility] ELECTROLYTES Calcium Lvl 8.0 mg/dL 8.5 - 10.5 01/09/2014 [facility] ELECTROLYTES Total Protein 5.9 g/dL 6.4 - 8.4 01/09/2014 [facility] ELECTROLYTES Glucose Lvl 101 mg/dL 70 - 99 01/09/2014 4Interpretive Data: Adult reference range values reflect the clinical guidelines of the [place] [employer]. [facility] ELECTROLYTES BUN 11 mg/dL 7 - 22 01/09/2014 [facility] ELECTROLYTES Creatinine Lvl 1.0 mg/dL 0.5 - 1.4 01/09/2014 [facility] ELECTROLYTES Albumin Lvl 2.8 g/dL 3.5 - 5.0 01/09/2014 [facility] ELECTROLYTES ALT 25 unit/L 0 - 65 01/09/2014 [facility] ELECTROLYTES AST 29 unit/L 0 - 37 01/09/2014 [facility] ELECTROLYTES Alk Phos 77 unit/L 39 - 136 01/09/2014 [facility] ELECTROLYTES Bili Total 0.7 mg/dL 0.2 - 1.3 01/09/2014 [facility] HEMATOLOGY MPV 8.6 fL 7.4 - 10.4 01/09/2014 [facility] WBC 7.4 K/CMM 3.7 - 10.4 01/09/2014 [facility] RBC 3.38 M/CMM 4.20 - 5.40 01/09/2014 [facility] MCH 31.6 pg 27.0 - 31.0 01/09/2014 [facility] HEMATOLOGY MCV 94.4 fL 81.0 - 99.0 01/09/2014 [facility] MCHC 33.4 g/dL 32.0 - 36.0 01/09/2014 [facility] Platelet 232 K/CMM 133 - 450 01/09/2014 [facility] RDW 13.4 % 11.5 - 14.5 01/09/2014 [facility] HEMATOLOGY Hct 31.9 % 36.0 - 48.0 01/09/2014 [facility] HEMATOLOGY Hgb 10.7 g/dL 12.0 - 16.0 01/09/2014 [facility] HEMATOLOGY Segs 54.1 % 45.0 - 75.0 01/09/2014 [facility] HEMATOLOGY Lymphocytes 32.8 % 20.0 - 40.0 01/09/2014 [facility] HEMATOLOGY Segs-Bands # 4.0 K/CMM 1.5 - 8.1 01/09/2014 [facility] HEMATOLOGY Basophils 0.4 % 0.0 - 1.0 01/09/2014 [facility] HEMATOLOGY Monocytes # 0.6 K/CMM 0.0 - 0.8 01/09/2014 [facility] HEMATOLOGY Lymphocytes # 2.4 K/CMM 1.0 - 5.5 01/09/2014 [facility] HEMATOLOGY Eosinophils # 0.4 K/CMM 0.0 - 0.5 01/09/2014 [facility] HEMATOLOGY Eosinophils 4.8 % 0.0 - 4.0 01/09/2014 [facility] HEMATOLOGY Monocytes 7.9 % 2.0 - 12.0 01/09/2014 [facility] ELECTROLYTES AGAP 13.3 meq/L 10.0 - 20.0 01/08/2014 [facility] ELECTROLYTES eGFR 51 mL/min/1.73m2 01/08/2014 2Result Comment: The eGFR is calculated using the CKD-EPI formula. In most young, healthy individuals the eGFR will be >90 mL/min/1.73m2. The eGFR declines with age. An eGFR of 60-89 may be normal in some populations, particularly the elderly, for whom the CKD-EPI formula has not been extensively validated. Use of the eGFR is not recommended in the following populations: Individuals with unstable creatinine concentrations, including patients and those with serious co-morbid conditions. Patients with extremes in muscle mass or diet. The data above are obtained from the National Kidney Disease Education Program (NKDEP) which additionally recommends that when the eGFR is used in patients with extremes of body mass index for purposes of drug dosing, the eGFR should be multiplied by the estimated BMI. [facility] ELECTROLYTES Calcium Lvl 8.2 mg/dL 8.5 - 10.5 01/08/2014 [facility] ELECTROLYTES Sodium Lvl 147 meq/L 135 - 145 01/08/2014 [facility] ELECTROLYTES Potassium Lvl 3.3 meq/L 3.5 - 5.1 01/08/2014 [facility] ELECTROLYTES Chloride Lvl 109 meq/L 95 - 109 01/08/2014 [facility] ELECTROLYTES CO2 28 meq/L 24 - 32 01/08/2014 [facility] ELECTROLYTES Creatinine Lvl 1.1 mg/dL 0.5 - 1.4 01/08/2014 [facility] ELECTROLYTES Glucose Lvl 79 mg/dL 70 - 99 01/08/2014 5Interpretive Data: Adult reference range values reflect the clinical guidelines of the [place] [employer]. [facility] ELECTROLYTES BUN 16 mg/dL 7 - 22 01/08/2014 [facility] HEMATOLOGY Lymphocytes # 1.9 K/CMM 1.0 - 5.5 01/08/2014 [facility] HEMATOLOGY Segs-Bands # 3.3 K/CMM 1.5 - 8.1 01/08/2014 [facility] HEMATOLOGY Basophils 0.3 % 0.0 - 1.0 01/08/2014 [facility] HEMATOLOGY Eosinophils 4.6 % 0.0 - 4.0 01/08/2014 [facility] HEMATOLOGY Monocytes 7.6 % 2.0 - 12.0 01/08/2014 [facility] HEMATOLOGY Monocytes # 0.4 K/CMM 0.0 - 0.8 01/08/2014 [facility] Lymphocytes 32.2 % 20.0 - 40.0 01/08/2014 [facility] HEMATOLOGY Segs 55.3 % 45.0 - 75.0 01/08/2014 [facility] HEMATOLOGY Eosinophils # 0.3 K/CMM 0.0 - 0.5 01/08/2014 [facility] WBC 5.9 K/CMM 3.7 - 10.4 01/08/2014 [facility] Hct 32.6 % 36.0 - 48.0 01/08/2014 [facility] MCV 94.2 fL 81.0 - 99.0 01/08/2014 [facility] Hgb 11.1 g/dL 12.0 - 16.0 01/08/2014 [facility] RBC 3.46 M/CMM 4.20 - 5.40 01/08/2014 [facility] MPV 8.3 fL 7.4 - 10.4 01/08/2014 [facility] MCHC 34.1 g/dL 32.0 - 36.0 01/08/2014 [facility] RDW 13.3 % 11.5 - 14.5 01/08/2014 [facility] MCH 32.1 pg 27.0 - 31.0 01/08/2014 [facility] HEMATOLOGY Platelet 219 K/CMM 133 - 450 01/08/2014 [facility] Abdomen AP view Abdomen AP view Portable abdomen: The NG tube tip is in the end body of the stomach. Gas in the small bowel and colon is seen without significant distention. There is no visible pneumoperitoneum. There is no significant change compared to the exam on 01/06/2014. SL:13 01/08/2014 - - Read by: Endy Schroeder MD Dictated Date/time: 01/08/14 08:19 Electronically Signed by: Endy Schroeder MD 01/08/14 08:20 FINAL REPORT [facility] CHEM PANEL B/C Ratio 15 6 - 25 01/07/2014 [facility] CHEM PANEL Globulin 2.8 g/dL 2.0 - 4.0 01/07/2014 [facility] CHEM PANEL A/G Ratio 1.1 0.7 - 1.6 01/07/2014 [facility] CHEM PANEL AGAP 13.7 meq/L 10.0 - 20.0 01/07/2014 [facility] CHEM PANEL eGFR 51 mL/min/1.73m2 01/07/2014 3Result Comment: The eGFR is calculated using the CKD-EPI formula. In most young, healthy individuals the eGFR will be >90 mL/min/1.73m2. The eGFR declines with age. An eGFR of 60-89 may be normal in some populations, particularly the elderly, for whom the CKD-EPI formula has not been extensively validated. Use of the eGFR is not recommended in the following populations: Individuals with unstable creatinine concentrations, including patients and those with serious co-morbid conditions. Patients with extremes in muscle mass or diet. The data above are obtained from the National Kidney Disease Education Program (NKDEP) which additionally recommends that when the eGFR is used in patients with extremes of body mass index for purposes of drug dosing, the eGFR should be multiplied by the estimated BMI. [facility] CHEM PANEL BUN 17 mg/dL 7 - 22 01/07/2014 [facility] CHEM PANEL Glucose Lvl 102 mg/dL 70 - 99 01/07/2014 6Interpretive Data: Adult reference range values reflect the clinical guidelines of the [place] [employer]. [facility] CHEM PANEL Sodium Lvl 143 meq/L 135 - 145 01/07/2014 [facility] CHEM PANEL Creatinine Lvl 1.1 mg/dL 0.5 - 1.4 01/07/2014 [facility] CHEM PANEL ALT 16 unit/L 0 - 65 01/07/2014 [facility] CHEM PANEL Total Protein 5.9 g/dL 6.4 - 8.4 01/07/2014 [facility] CHEM PANEL Albumin Lvl 3.1 g/dL 3.5 - 5.0 01/07/2014 [facility] CHEM PANEL AST 16 unit/L 0 - 37 01/07/2014 [facility] CHEM PANEL Alk Phos 75 unit/L 39 - 136 01/07/2014 [facility] CHEM PANEL Chloride Lvl 110 meq/L 95 - 109 01/07/2014 [facility] CHEM PANEL Potassium Lvl 3.7 meq/L 3.5 - 5.1 01/07/2014 [facility] CHEM PANEL CO2 23 meq/L 24 - 32 01/07/2014 [facility] CHEM PANEL Calcium Lvl 8.9 mg/dL 8.5 - 10.5 01/07/2014 [facility] CHEM PANEL Bili Total 1.0 mg/dL 0.2 - 1.3 01/07/2014 [facility] HEMATOLOGY MCV 94.8 fL 81.0 - 99.0 01/07/2014 [facility] Hct 34.5 % 36.0 - 48.0 01/07/2014 [facility] HEMATOLOGY Platelet 236 K/CMM 133 - 450 01/07/2014 [facility] MCHC 33.5 g/dL 32.0 - 36.0 01/07/2014 [facility] MCH 31.8 pg 27.0 - 31.0 01/07/2014 [facility] RDW 13.8 % 11.5 - 14.5 01/07/2014 [facility] MPV 8.2 fL 7.4 - 10.4 01/07/2014 [facility] WBC 5.2 K/CMM 3.7 - 10.4 01/07/2014 [facility] HEMATOLOGY Hgb 11.6 g/dL 12.0 - 16.0 01/07/2014 [facility] HEMATOLOGY RBC 3.64 M/CMM 4.20 - 5.40 01/07/2014 [facility] HEMATOLOGY Eosinophils # 0.1 K/CMM 0.0 - 0.5 01/07/2014 [facility] HEMATOLOGY Monocytes # 0.7 K/CMM 0.0 - 0.8 01/07/2014 [facility] HEMATOLOGY Segs-Bands # 3.0 K/CMM 1.5 - 8.1 01/07/2014 [facility] HEMATOLOGY Lymphocytes # 1.3 K/CMM 1.0 - 5.5 01/07/2014 [facility] HEMATOLOGY Segs 57.9 % 45.0 - 75.0 01/07/2014 [facility] HEMATOLOGY Monocytes 13.6 % 2.0 - 12.0 01/07/2014 [facility] HEMATOLOGY Lymphocytes 25.2 % 20.0 - 40.0 01/07/2014 [facility] HEMATOLOGY Basophils 0.5 % 0.0 - 1.0 01/07/2014 [facility] HEMATOLOGY Eosinophils 2.8 % 0.0 - 4.0 01/07/2014 [facility] Abdomen AP view Abdomen AP view Portable abdomen: Exam is limited by motion. The NG tube is in the stomach. There is no significant bowel distention. There is no visible pneumoperitoneum. Postoperative changes with hardware are noted in the lower lumbar spine. There is no significant change compared to 12/21/2010. SL:13 01/06/2014 - - Read by: Endy Schroeder MD Dictated Date/time: 01/06/14 15:43 Electronically Signed by: Endy Schroeder MD 01/06/14 15:53 FINAL REPORT [facility] URINE AND STOOL UA Urobilinogen <=1.0 mg/dL 0.1 - 1.0 01/06/2014 [facility] URINE AND STOOL UA Bacteria Few /HPF None Seen /HPF 01/06/2014 [facility] URINE AND STOOL UA Hyal Cast 1 /LPF 0 - 2 01/06/2014 [facility] URINE AND STOOL UA Mucus Few /LPF None Seen /LPF 01/06/2014 [facility] URINE AND STOOL UA Turbidity Slight *ABN* (01/05/14 10:00 PM) Clear 01/06/2014 [facility] URINE AND STOOL UA Color Yellow *NA* (01/05/14 10:00 PM) Yellow 01/06/2014 [facility] URINE AND STOOL UA pH 8.0 5.0 - 8.0 01/06/2014 [facility] URINE AND STOOL UA Spec Grav 1.020 <=1.030 01/06/2014 [facility] URINE AND STOOL UA Leuk Est Negative (01/05/14 10:00 PM) Negative 01/06/2014 [facility] URINE AND STOOL UA Nitrite Negative (01/05/14 10:00 PM) Negative 01/06/2014 [facility] URINE AND STOOL UA Sq Epi Moderate /LPF Few /LPF 01/06/2014 [facility] URINE AND STOOL UA WBC 2 /HPF 0 - 5 01/06/2014 [facility] URINE AND STOOL UA RBC 1 /HPF 0 - 2 01/06/2014 [facility] URINE AND STOOL UA Protein 30 mg/dL Negative mg/dL 01/06/2014 [facility] URINE AND STOOL UA Glucose Negative mg/dL Negative mg/dL 01/06/2014 [facility] URINE AND STOOL UA Blood Negative (01/05/14 10:00 PM) Negative 01/06/2014 [facility] URINE AND STOOL UA Bili Negative *NA* (01/05/14 10:00 PM) Negative 01/06/2014 [facility] URINE AND STOOL UA Ketones 20 mg/dL Negative mg/dL 01/06/2014 [facility] CARDIAC ENZYMES CK MB 0.9 ng/mL 0.5 - 3.6 01/06/2014 [facility] CARDIAC ENZYMES Troponin-I null 0.00 - 0.40 01/06/2014 [facility] CARDIAC ENZYMES Total CK 98 unit/L 12 - 191 01/06/2014 [facility] CARDIAC ENZYMES CK MB Index 0.9 0.0 - 2.5 01/06/2014 [facility] CHEM PANEL Lipase Lvl 98 unit/L 73 - 393 01/06/2014 [facility] CHEM PANEL Amylase Lvl 58 unit/L 25 - 115 01/06/2014 [facility] CHEM PANEL A/G Ratio 1.1 0.7 - 1.6 01/06/2014 [facility] CHEM PANEL Bili Total 0.9 mg/dL 0.2 - 1.3 01/06/2014 [facility] CHEM PANEL Alk Phos 112 unit/L 39 - 136 01/06/2014 [facility] CHEM PANEL Albumin Lvl 4.3 g/dL 3.5 - 5.0 01/06/2014 [facility] CHEM PANEL Globulin 3.9 g/dL 2.0 - 4.0 01/06/2014 [facility] CHEM PANEL B/C Ratio 13 6 - 25 01/06/2014 [facility] CHEM PANEL AST 23 unit/L 0 - 37 01/06/2014 [facility] CHEM PANEL ALT 23 unit/L 0 - 65 01/06/2014 [facility] CHEM PANEL Total Protein 8.2 g/dL 6.4 - 8.4 01/06/2014 [facility] Vital Signs Vital Sign Value Date Comments Source Systolic (mm Hg) 160 03/29/2018 [facility] Diastolic (mm Hg) 100 03/29/2018 [facility] Respitory Rate 20 03/29/2018 [facility] Heart Rate 89 03/29/2018 [facility] Temperature Oral (F) 97.9 F 03/29/2018 [facility] Temperature Oral (F) 98.0 F 03/29/2018 [facility] Heart Rate 72 03/29/2018 [facility] Respitory Rate 18 03/29/2018 [facility] Systolic (mm Hg) 178 03/29/2018 [facility] Diastolic (mm Hg) 81 03/29/2018 [facility] Heart Rate 73 03/29/2018 [facility] Systolic (mm Hg) 163 03/29/2018 [facility] Diastolic (mm Hg) 76 03/29/2018 [facility] Temperature Oral (F) 97.7 F 03/29/2018 [facility] Respitory Rate 20 03/28/2018 [facility] Weight 86.818 03/20/2018 [facility] Weight 86.818 03/20/2018 [facility] Weight 87.273 03/19/2018 [facility] BMI Calculated 34.08 03/16/2018 [facility] Height 160.02 cm 03/16/2018 [facility] Respitory Rate 19 06/16/2017 [facility] Systolic (mm Hg) 133 06/16/2017 [facility] Diastolic (mm Hg) 79 06/16/2017 [facility] Heart Rate 87 06/16/2017 [facility] Temperature Oral (F) 98.0 F 06/16/2017 [facility] Heart Rate 85 06/16/2017 [facility] Respitory Rate 18 06/16/2017 [facility] Weight 87.273 06/16/2017 [facility] Systolic (mm Hg) 137 06/16/2017 [facility] Diastolic (mm Hg) 81 06/16/2017 [facility] Temperature Oral (F) 97.8 F 06/16/2017 [facility] Respitory Rate 18 06/16/2017 [facility] Heart Rate 98 06/16/2017 [facility] Temperature Oral (F) 98.0 F 06/05/2017 [facility] Systolic (mm Hg) 117 06/05/2017 [facility] Diastolic (mm Hg) 71 06/05/2017 [facility] Heart Rate 84 06/05/2017 [facility] Respitory Rate 20 06/05/2017 [facility] BMI Calculated 33.9 06/05/2017 [facility] Weight 86.818 06/05/2017 [facility] Temperature Oral (F) 97.5 F 06/05/2017 [facility] Respitory Rate 18 06/05/2017 [facility] Heart Rate 80 06/05/2017 [facility] Systolic (mm Hg) 113 06/05/2017 [facility] Diastolic (mm Hg) 79 06/05/2017 [facility] Height 160.02 cm 06/05/2017 [facility] Systolic (mm Hg) 142 10/19/2015 [facility] Diastolic (mm Hg) 75 10/19/2015 [facility] Respitory Rate 18 10/19/2015 [facility] Temperature Oral (F) 97.7 F 10/19/2015 [facility] Height 175.26 cm 10/19/2015 [facility] Weight 95.455 10/19/2015 [facility] BMI Calculated 31.08 10/19/2015 [facility] Systolic (mm Hg) 175 10/19/2015 [facility] Diastolic (mm Hg) 104 10/19/2015 [facility] Respitory Rate 26 10/19/2015 [facility] Heart Rate 74 10/19/2015 [facility] Diastolic (mm Hg) 75 07/11/2014 [facility] Systolic (mm Hg) 105 07/11/2014 [facility] Respitory Rate 16 07/11/2014 [facility] Diastolic (mm Hg) 70 07/11/2014 [facility] Systolic (mm Hg) 110 07/11/2014 [facility] Respitory Rate 16 07/11/2014 [facility] Diastolic (mm Hg) 68 07/11/2014 [facility] Systolic (mm Hg) 112 07/11/2014 [facility] Respitory Rate 15 07/11/2014 [facility] Heart Rate 72 2014 [facility] Temperature Oral (F) 98 F 2014 [facility] Height 160.02 cm 2014 [facility] Weight 81.818 2014 [facility] BMI Calculated 31.95 2014 [facility] Respitory Rate 20 06/14/2014 [facility] Diastolic (mm Hg) 50 06/14/2014 [facility] Systolic (mm Hg) 91 06/14/2014 [facility] Diastolic (mm Hg) 50 06/14/2014 [facility] Respitory Rate 21 06/14/2014 [facility] Systolic (mm Hg) 91 06/14/2014 [facility] Respitory Rate 22 06/14/2014 [facility] [facility] Diastolic (mm Hg) 52 06/14/2014 [facility] Systolic (mm Hg) 93 06/14/2014 [facility] Heart Rate 56 06/14/2014 [facility] Temperature Oral (F) 98.2 F 06/14/2014 [facility] BMI Calculated 31.6 06/14/2014 [facility] Weight 80.909 06/14/2014 [facility] Height 160.02 cm 06/14/2014 [facility] Diastolic (mm Hg) 84 01/09/2014 [facility] Temperature Oral (F) 97.7 F 01/09/2014 [facility] Respitory Rate 16 01/09/2014 [facility] Heart Rate 60 01/09/2014 [facility] Systolic (mm Hg) 156 01/09/2014 [facility] Heart Rate 71 01/09/2014 [facility] Respitory Rate 16 01/09/2014 [facility] Temperature Oral (F) 98.1 F 01/09/2014 [facility] Diastolic (mm Hg) 78 01/09/2014 [facility] Systolic (mm Hg) 143 01/09/2014 [facility] Temperature Oral (F) 98.2 F 01/09/2014 [facility] Respitory Rate 17 01/09/2014 [facility] Heart Rate 67 01/09/2014 [facility] Diastolic (mm Hg) 70 01/09/2014 [facility] Systolic (mm Hg) 132 01/09/2014 [facility] Weight 77.273 01/06/2014 [facility] BMI Calculated 30.18 01/06/2014 [facility] Height 160.02 cm 01/06/2014 [facility] Encounters Location Location Details Encounter Type Encounter Number Reason For Visit Attending Provider ADM Date DC Date Status Source [facility] Inpatient [id number] Grey Candelaria 01/06/2014 01/09/2014 [facility] [id number] Dago Levy 06/14/2014 06/14/2014 [facility] Bedded Outpatient [id number] Sangita Horton 07/11/2014 07/11/2014 [facility] Outpatient [id number] Manny Whyte 08/19/2014 08/20/2014 [facility] Outpatient [id number] Ellis Amor 12/23/2014 12/24/2014 [facility] Outpatient [id number] Ellis Sifuentesh 12/27/2014 12/28/2014 [facility] [id number] Max Baptism 10/19/2015 10/19/2015 [facility] Outpatient [id number] Og Mcneilomer 10/28/2015 10/29/2015 [facility] Outpatient [id number] Hailey Claudioam-Jiwa 11/27/2015 11/28/2015 [facility] Outpatient [id number] Manny Pato 12/16/2015 12/17/2015 [facility] Outpatient [id number] Hailey Lisbet-Newton 01/20/2016 01/21/2016 [facility] Outpatient [id number] Hailey Lisbet-Newton 01/27/2016 01/28/2016 [facility] [id number] Jj Brown 07/16/2016 07/17/2016 [facility] Outpatient [id number] Artie Yu 04/03/2017 04/04/2017 [facility] Emergency [id number] Ellis Jaskwuma 06/05/2017 06/05/2017 [facility] Emergency [id number] Denny Iheme 06/16/2017 06/16/2017 [facility] Outpatient [id number] [facility] 06/17/2017 [facility] Outpatient [id number] MARCY IWOBI 06/17/2017 [facility] Outpatient [id number] [facility] 06/17/[address] [facility] Inpatient [id number] Sabrina Metzgerichert 03/15/2018 03/29/2018 [facility] Procedures Procedure Code Date Perfomer Comments Source Anastomosis of transverse colon to rectum 176132820 [facility] [id number] [facility] [id number] [facility]il[facility]omy 124941967 [facility] Anastomosis of transverse colon to rectum [id number] [facility] Hysterectomy [id number] [facility] Operation [id number] [facility] Tonsillectomy [id number] [facility] Anastomosis of transverse colon to rectum [id number] [facility] Hysterectomy [id number] [facility] Operation [id number] [facility] Tonsillectomy [id number] [facility] Anastomosis of transverse colon to rectum [id number] [facility] Hysterectomy [id number] [facility] Operation [id number] [facility] Tonsillectomy [id number] [facility]
--- OUTSIDE RECORDS SUMMARY | 2018-11-07 21:00 | XMS REPORT | Summary of Care ---
Author Author [facility] Organization [facility] Address Unknown Phone Unavailable Encounter HQ Lucrecia(JOSH) [id number] Date(s): 06/05/17 - 06/05/17 [facility] [address] [place] [address]- [facility] [phone] Discharge Diagnosis: Chronic low back pain Discharge Diagnosis: Fall from standing Discharge Disposition: Home or Self Care Attending Physician: Ellis Zaragoza DO Vital Signs Most recent to 1 2 oldest [Reference Range]: Height 160.02 cm (06/05/17 9:45 AM) Temperature Oral 98.0 DegF 97.5 DegF [96.4-99.1 DegF] (06/05/17 3:33 PM) (06/05/17 9:45 AM) Blood Pressure 117/71 mmHg 113/79 mmHg [90-140/60-90 mmHg] (06/05/17 3:33 PM) (06/05/17 9:45 AM) Respiratory Rate 20 BRMIN 18 BRMIN [14-20 BRMIN] (06/05/17 3:33 PM) (06/05/17 9:45 AM) Peripheral Pulse 84 bpm 80 bpm Rate [60-100 bpm] (06/05/17 3:33 PM) (06/05/17 9:45 AM) Weight 86.818 kg (06/05/17 9:45 AM) Body Mass Index 33.9 m2 (06/05/17 9:45 AM) Problem List Condition Effective Dates Status Health Status Informant Anxiety(Confirmed) Active Cervical 12/16/14 Active radiculopathy1 Fibromyalgia(Confirm Resolved ed) HLD - Active Hyperlipidemia(Confi rmed) HTN - Active Hypertension(Confirm ed) HYPERTENSION(Confirm Resolved ed) Hypothyroidism(Confi Resolved rmed) Low back pain2 12/16/14 Active Lumbar 12/16/14 Active radiculopathy3 N&V - Nausea and Active vomiting(Confirmed) Obsessive compulsive Resolved behavior(Confirmed) OCD - Active Obsessive-compulsive disorder(Confirmed) Sleep Resolved apnea(Confirmed)4 1Data migrated from [employer] on 01/20/15. 2Data migrated from [employer] on 01/20/15. 3Data migrated from [employer] on 01/20/15. 4uses CPAP Allergies, Adverse Reactions, Alerts Substance Reaction Severity Status gabapentin1 Active NKDA Active 1Data migrated from [employer] on 01/19/15. Originally documented as NEURONTIN. Medications No data available for this section Results ELECTROLYTES Most recent to 1 oldest [Reference Range]: Sodium Lvl [135-145 139 mEq/L mEq/L] (06/05/17 10:16 AM) Potassium Lvl 3.8 mEq/L [3.5-5.1 mEq/L] (06/05/17 10:16 AM) Chloride Lvl [95-109 105 mEq/L mEq/L] (06/05/17 10:16 AM) CO2 [24-32 mEq/L] 25 mEq/L (06/05/17 10:16 AM) AGAP [10.0-20.0 12.8 mEq/L mEq/L] (06/05/17 10:16 AM) CHEM PANEL Most recent to 1 oldest [Reference Range]: Creatinine Lvl 1.14 mg/dL [0.50-1.40 mg/dL] (06/05/17 10:16 AM) eGFR 48 mL/min/1.73m2 1 *NA* (06/05/17 10:16 AM) BUN [7-22 mg/dL] 25 mg/dL *HI* (06/05/17 10:16 AM) B/C Ratio [6-25] 22 (06/05/17 10:16 AM) Glucose Lvl [70-99 109 mg/dL mg/dL] *HI* (06/05/17 10:16 AM) Total Protein 6.7 g/dL [6.4-8.4 g/dL] (06/05/17 10:16 AM) Albumin Lvl [3.5-5.0 2.9 g/dL g/dL] *LOW* (06/05/17 10:16 AM) Globulin [2.7-4.2 3.8 g/dL g/dL] (06/05/17 10:16 AM) A/G Ratio [0.7-1.6] 0.8 (06/05/17 10:16 AM) Calcium Lvl 8.8 mg/dL [8.5-10.5 mg/dL] (06/05/17 10:16 AM) ALT [0-65 unit/L] 30 unit/L (06/05/17 10:16 AM) AST [0-37 unit/L] 21 unit/L (06/05/17 10:16 AM) Alk Phos [39-136 85 unit/L unit/L] (06/05/17 10:16 AM) Bili Total [0.2-1.3 0.3 mg/dL mg/dL] (06/05/17 10:16 AM) Lipase Lvl [73-393 126 unit/L unit/L] (06/05/17 10:16 AM) 1Result Comment: The eGFR is calculated using [...] from the National Kidney Disease Education Program ( NKDEP) which additionally recommends that when the eGFR is used in patients with extremes of body mass index for purposes of drug dosing, the eGFR should be mul tiplied by the estimated BMI. CARDIAC ENZYMES Most recent to 1 oldest [Reference Range]: Troponin-I <0.02 ng/mL [0.00-0.40 ng/mL] (06/05/17 10:16 AM) URINE AND STOOL Most recent to 1 oldest [Reference Range]: UA Turbidity [Clear] Clear (06/05/17 2:00 PM) UA Color [Yellow] Yellow *NA* (06/05/17 2:00 PM) UA pH [5.0-8.0] 6.0 (06/05/17 2:00 PM) UA Spec Grav 1.014 [<=1.030] (06/05/17 2:00 PM) UA Glucose [Negative Negative mg/dL mg/dL] *NA* (06/05/17 2:00 PM) UA Blood [Negative] Negative (06/05/17 2:00 PM) UA Ketones [Negative Negative mg/dL mg/dL] *NA* (06/05/17 2:00 PM) UA Protein [Negative Negative mg/dL mg/dL] (06/05/17 2:00 PM) UA Urobilinogen <=1.0 mg/dL [0.1-1.0 mg/dL] *NA* (06/05/17 2:00 PM) UA Bili [Negative] Negative *NA* (06/05/17 2:00 PM) UA Leuk Est Trace [Negative] *ABN* (06/05/17 2:00 PM) UA Nitrite Negative [Negative] (06/05/17 2:00 PM) UA Sq Epi None Seen *NA* (06/05/17 2:00 PM) UA Hyal Cast [0-2 23 /LPF /LPF] *HI* (06/05/17 2:00 PM) UA Mucus [None Seen Few /LPF /LPF] *NA* (06/05/17 2:00 PM) UA Hyph Yeast [None None Seen 1 Seen] (06/05/17 2:00 PM) 1Result Comment: called Madiha Mehta at 06/05/2017 14:19 for correction due to mistyping. HEMATOLOGY Most recent to 1 oldest [Reference Range]: WBC [3.7-10.4 K/CMM] 10.4 K/CMM (06/05/17 10:16 AM) RBC [4.20-5.40 3.96 M/CMM M/CMM] *LOW* (06/05/17 10:16 AM) Hgb [12.0-16.0 g/dL] 13.0 g/dL (06/05/17 10:16 AM) Hct [36.0-48.0 %] 38.1 % (06/05/17 10:16 AM) MCV [80.0-98.0 fL] 96.1 fL (06/05/17 10:16 AM) MCH [27.0-31.0 pg] 32.8 pg *HI* (06/05/17 10:16 AM) MCHC [32.0-36.0 34.1 g/dL g/dL] (06/05/17 10:16 AM) RDW [11.5-14.5 %] 13.6 % (06/05/17 10:16 AM) Platelet [133-450 327 K/CMM K/CMM] (06/05/17 10:16 AM) MPV [7.4-10.4 fL] 8.2 fL (06/05/17 10:16 AM) Segs [45.0-75.0 %] 57.5 % (06/05/17 10:16 AM) Lymphocytes 32.1 % [20.0-40.0 %] (06/05/17 10:16 AM) Monocytes [2.0-12.0 6.8 % %] (06/05/17 10:16 AM) Eosinophils [0.0-4.0 2.7 % %] (06/05/17 10:16 AM) Basophils [0.0-1.0 0.9 % %] (06/05/17 10:16 AM) Segs-Bands # 6.0 K/CMM [1.5-8.1 K/CMM] (06/05/17 10:16 AM) Lymphocytes # 3.3 K/CMM [1.0-5.5 K/CMM] (06/05/17 10:16 AM) Monocytes # [0.0-0.8 0.7 K/CMM K/CMM] (06/05/17 10:16 AM) Eosinophils # 0.3 K/CMM [0.0-0.5 K/CMM] (06/05/17 10:16 AM) Basophils # [0.0-0.2 0.1 K/CMM K/CMM] (06/05/17 10:16 AM) Immunizations Given and Recorded Vaccine Date Status Refusal Reason pneumococcal 23-valent vaccine 11/12/10 Given Procedures Procedure Date Related Diagnosis Body Site Anastomosis of transverse colon to rectum Hysterectomy Operation Operation Tonsillectomy Social History Social History Type Response Substance Abuse Use: None. Alcohol Past, Previous treatment: None. Smoking Status Never smoker; Exposure to Tobacco Smoke None; Cigarette Smoking Last 365 Days No; Reg Smoking Cessation Counseling No Assessment and Plan No data available for this section
--- OUTSIDE RECORDS SUMMARY | 2018-11-07 21:00 | XMS REPORT | Summary of Care ---
Author Author [facility] Organization [facility] Address Unknown Phone Unavailable Encounter HQ Lucrecia(FIN) [id number] Date(s): 06/15/17 - 06/16/17 [facility] [address] [place] [address]- [facility] [phone] Encounter Diagnosis Major depression (Discharge Diagnosis) - 06/16/17 Major depressive disorder, single episode, unspecified (Final) - 06/29/17 Personal history of nicotine dependence (Final) - Essential (primary) hypertension (Final) - Dorsalgia, unspecified (Final) - 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) - Discharge Disposition: Home or Self Care Attending Physician: Denny Abrams MD Vital Signs 1 2 3 Most recent to oldest [Reference Range]: 98.0 DegF (06/16/17 1:41 AM) 97.8 DegF (06/15/17 8:50 PM) Temperature Oral [96.4-99.1 DegF] 133/79 mmHg (06/16/17 1:41 AM) 137/81 mmHg (06/15/17 8:50 PM) Blood Pressure [90-140/60-90 mmHg] 19 BRMIN (06/16/17 1:41 AM) 18 BRMIN (06/15/17 11:51 PM) 18 BRMIN (06/15/17 8:50 PM) Respiratory Rate [14-20 BRMIN] 87 bpm (06/16/17 1:41 AM) 85 bpm (06/15/17 11:51 PM) 98 bpm (06/15/17 8:50 PM) Peripheral Pulse Rate [60-100 bpm] 87.273 kg (06/15/17 8:50 PM) Weight Problem List Condition Effective Dates Status Health Status Informant Anxiety(Confirmed) Active Cervical 12/16/14 Active radiculopathy1 Fibromyalgia(Confirm Resolved ed) HLD - Active Hyperlipidemia(Confi rmed) HTN - Active Hypertension(Confirm ed) HYPERTENSION(Confirm Resolved ed) Hypothyroidism(Confi Resolved rmed) Low back pain2 12/16/14 Active Lumbar 12/16/14 Active radiculopathy3 N&V - Nausea and Active vomiting(Confirmed) Obsessive compulsive Resolved behavior(Confirmed) OCD - Active Obsessive-compulsive disorder(Confirmed) Simple Active obesity(Confirmed) Sleep Resolved apnea(Confirmed)4 1Data migrated from GE [...] 1 oldest [Reference Range]: Sodium Lvl [135-145 142 mEq/L mEq/L] (06/15/17 9:36 PM) Potassium Lvl 3.2 mEq/L [3.5-5.1 mEq/L] *LOW* (06/15/17 9:36 PM) Chloride Lvl [95-109 107 mEq/L mEq/L] (06/15/17 9:36 PM) CO2 [24-32 mEq/L] 26 mEq/L (06/15/17 9:36 PM) AGAP [10.0-20.0 12.2 mEq/L mEq/L] (06/15/17 9:36 PM) CHEM PANEL Most recent to 1 oldest [Reference Range]: Creatinine Lvl 1.42 mg/dL [0.50-1.40 mg/dL] *HI* (06/15/17 9:36 PM) eGFR 37 mL/min/1.73m2 1 *NA* (06/15/17 9:36 PM) BUN [7-22 mg/dL] 44 mg/dL *HI* (06/15/17 9:36 PM) B/C Ratio [6-25] 31 *HI* (06/15/17 9:36 PM) Glucose Lvl [70-99 129 mg/dL mg/dL] *HI* (06/15/17 9:36 PM) Total Protein 7.4 g/dL [6.4-8.4 g/dL] (06/15/17 9:36 PM) Albumin Lvl [3.5-5.0 3.3 g/dL g/dL] *LOW* (06/15/17 9:36 PM) Globulin [2.7-4.2 4.1 g/dL g/dL] (06/15/17 9:36 PM) A/G Ratio [0.7-1.6] 0.8 (06/15/17 9:36 PM) Calcium Lvl 9.3 mg/dL [8.5-10.5 mg/dL] (06/15/17 9:36 PM) ALT [0-65 unit/L] 23 unit/L (06/15/17 9:36 PM) AST [0-37 unit/L] 11 unit/L (06/15/17 9:36 PM) Alk Phos [39-136 91 unit/L unit/L] (06/15/17 9:36 PM) Bili Total [0.2-1.3 0.8 mg/dL mg/dL] (06/15/17 9:36 PM) Lipase Lvl [73-393 189 unit/L unit/L] (06/15/17 9:36 PM) 1Result Comment: The eGFR is calculated using [...] be mul tiplied by the estimated BMI. DRUG SCREEN Most recent to 1 oldest [Reference Range]: U Amph Scr Negative [Negative] *NA* (06/15/17 10:22 PM) U Lizz Scr Negative [Negative] *NA* (06/15/17 10:22 PM) U Benzodia Scr Negative [Negative] *NA* (06/15/17 10:22 PM) U Cocaine Scr Negative [Negative] *NA* (06/15/17 10:22 PM) U Opiate Scr Negative [Negative] *NA* (06/15/17 10:22 PM) U Phencyc Scr Negative [Negative] *NA* (06/15/17 10:22 PM) U Cannab Scr Negative [Negative] *NA* (06/15/17 10:22 PM) UDS Note See Note *NA* (06/15/17 10:22 PM) TOXICOLOGY Most recent to 1 oldest [Reference Range]: Acetaminoph Lvl <2 [10-20] (06/15/17 9:36 PM) Salicylate Lvl <1.7 mg/dL [0.0-30.0 mg/dL] (06/15/17 9:36 PM) Etoh (%) <.003 % *NA* (06/15/17 9:36 PM) Ethanol Lvl <3 mg/dL *NA* (06/15/17 9:36 PM) URINE AND STOOL Most recent to 1 oldest [Reference Range]: UA Turbidity [Clear] Slight *ABN* (06/15/17 10:22 PM) UA Color [Yellow] Yellow *NA* (06/15/17 10:22 PM) UA pH [5.0-8.0] 5.0 (06/15/17 10:22 PM) UA Spec Grav 1.020 [<=1.030] (06/15/17 10:22 PM) UA Glucose [Negative Negative mg/dL mg/dL] *NA* (06/15/17 10:22 PM) UA Blood [Negative] Negative (06/15/17 10:22 PM) UA Ketones [Negative Negative mg/dL mg/dL] *NA* (06/15/17 10:22 PM) UA Protein [Negative Negative mg/dL mg/dL] (06/15/17 10:22 PM) UA Urobilinogen <=1.0 mg/dL [0.1-1.0 mg/dL] *NA* (06/15/17 10:22 PM) UA Bili [Negative] Negative *NA* (06/15/17 10:22 PM) UA Leuk Est Negative [Negative] (06/15/17 10:22 PM) UA Nitrite Negative [Negative] (06/15/17 10:22 PM) UA WBC [0-5 /HPF] 3 /HPF (06/15/17 10:22 PM) UA RBC [0-2 /HPF] 2 /HPF (06/15/17 10:22 PM) UA Bacteria [None Occasional /HPF Seen /HPF] *NA* (06/15/17 10:22 PM) UA Sq Epi [Few /LPF] Occasional /LPF *NA* (06/15/17 10:22 PM) UA Hyal Cast [0-2 9 /LPF /LPF] *HI* (06/15/17 10:22 PM) UA Mucus [None Seen Few /LPF /LPF] *NA* (06/15/17 10:22 PM) HEMATOLOGY Most recent to 1 oldest [Reference Range]: WBC [3.7-10.4 K/CMM] 14.6 K/CMM *HI* (06/15/17 9:36 PM) RBC [4.20-5.40 4.11 M/CMM M/CMM] *LOW* (06/15/17 9:36 PM) Hgb [12.0-16.0 g/dL] 13.7 g/dL (06/15/17 9:36 PM) Hct [36.0-48.0 %] 39.3 % (06/15/17 9:36 PM) MCV [80.0-98.0 fL] 95.6 fL (06/15/17 9:36 PM) MCH [27.0-31.0 pg] 33.3 pg *HI* (06/15/17 9:36 PM) MCHC [32.0-36.0 34.8 g/dL g/dL] (06/15/17 9:36 PM) RDW [11.5-14.5 %] 13.6 % (06/15/17 9:36 PM) MPV [7.4-10.4 fL] 8.6 fL (06/15/17 9:36 PM) Platelet [133-450 378 K/CMM K/CMM] (06/15/17 9:36 PM) Segs [45.0-75.0 %] 72.5 % (06/15/17 9:36 PM) Lymphocytes 18.4 % [20.0-40.0 %] *LOW* (06/15/17 9:36 PM) Monocytes [2.0-12.0 7.8 % %] (06/15/17 9:36 PM) Eosinophils [0.0-4.0 0.8 % %] (06/15/17 9:36 PM) Basophils [0.0-1.0 0.5 % %] (06/15/17 9:36 PM) Segs-Bands # 10.6 K/CMM [1.5-8.1 K/CMM] *HI* (06/15/17 9:36 PM) Lymphocytes # 2.7 K/CMM [1.0-5.5 K/CMM] (06/15/17 9:36 PM) Monocytes # [0.0-0.8 1.1 K/CMM K/CMM] *HI* (06/15/17 9:36 PM) Eosinophils # 0.1 K/CMM [0.0-0.5 K/CMM] (06/15/17 9:36 PM) Basophils # [0.0-0.2 0.1 K/CMM K/CMM] (06/15/17 9:36 PM) Immunizations Given and Recorded Vaccine Date Status Refusal Reason pneumococcal 23-valent vaccine 11/12/10 Given Procedures Procedure Date Related Diagnosis Body Site Status Anastomosis of transverse colon to rectum Completed Hysterectomy Completed Operation Completed Operation Completed Tonsillectomy Completed Social History Social History Type Response Substance Abuse Use: None. Alcohol Past, Previous treatment: None. Smoking Status Never smoker; Exposure to Tobacco Smoke None; Cigarette Smoking Last 365 Days No; Reg Smoking Cessation Counseling No entered on: 06/17/17 Assessment and Plan No data available for this section
--- OUTSIDE RECORDS SUMMARY | 2018-11-07 21:00 | XMS REPORT | Summary of Care ---
Author Author [facility] Organization [facility] Address Unknown Phone Unavailable Encounter HQ Lucrecia(FIN) [id number] Date(s): 06/05/17 - 06/05/17 [facility] [address] [place], [place] [address] [phone] Encounter Diagnosis Chronic low back pain (Discharge Diagnosis) - 06/05/17 Fall from standing (Discharge Diagnosis) - 06/05/17 Low back pain (Final) - 06/09/17 Essential (primary) hypertension (Final) - Fall on same level from slipping, tripping and stumbling without subsequent stri clinton against object, initial encounter (Final) - Discharge Disposition: Home or Self [...] [11.5-14.5 %] 13.6 % (06/05/17 10:16 AM) MPV [7.4-10.4 fL] 8.2 fL (06/05/17 10:16 AM) Platelet [133-450 327 K/CMM K/CMM] (06/05/17 10:16 AM) Segs [45.0-75.0 %] 57.5 [...]
--- OUTSIDE RECORDS SUMMARY | 2018-11-07 21:00 | XMS REPORT | Summary of Care ---
Author Author [facility] Organization [facility] Address Unknown Phone Unavailable Encounter HQ Lucrecia(JOSH) [id number] Date(s): 04/03/17 - 04/03/17 [facility] [address] [place] [address]- Discharge Disposition: Home or Self Care Attending Physician: Artie Yu MD Referring Physician: Artie Yu MD Vital Signs No data available for this section Problem List Condition Effective Dates Status Health [...] No data available for this section Results No data available for this section Immunizations Given and Recorded Vaccine Date Status [...]
--- OUTSIDE RECORDS SUMMARY | 2018-11-07 21:01 | XMS REPORT | Summary of Care ---
Author Organization Unknown Address Unknown Phone Unavailable Encounter REAL Singer(JOSH) [id number] Date(s): 06/14/14 - 06/14/14 [facility] [address] [address] Discharge Diagnosis: Constipation Discharge Diagnosis: Abdominal pain Discharge Disposition: Home Physician Attending: Dago Levy MD Reason for Visit CHEST PAIN Vital Signs 1 2 3 Most recent to oldest [Reference Range]: 160.02 cm (06/14/14 9:39 AM) Height 98.2 DegF (06/14/14 9:39 AM) Temperature Oral [96.4-99.1 DegF] 91 mmHg (06/14/14 3:10 PM) 91 mmHg (06/14/14 2:55 PM) 93 mmHg (06/14/14 2:10 PM) Systolic Blood Pressure [90-140 mmHg] 50 mmHg *LOW* (06/14/14 3:10 PM) 50 mmHg *LOW* (06/14/14 2:55 PM) 52 mmHg *LOW* (06/14/14 2:10 PM) Diastolic Blood Pressure [60-90 mmHg] 20 BRMIN (06/14/14 3:10 PM) 21 BRMIN *HI* (06/14/14 2:55 PM) 22 BRMIN *HI* (06/14/14 2:10 PM) Respiratory Rate [14-20 BRMIN] 56 bpm *LOW* (06/14/14 9:39 AM) Peripheral Pulse Rate [60-100 bpm] 80.909 kg (06/14/14 9:39 AM) Weight 31.6 m2 (06/14/14 9:39 AM) Body Mass Index Problem List Condition Effective Dates Status Health Status Informant Anxiety(Confirmed) Active HLD - Active Hyperlipidemia(Confi rmed) HTN - Active Hypertension(Confirm ed) HYPERTENSION(Confirm Resolved ed) N&V - Nausea and Active vomiting(Confirmed) Obsessive compulsive Resolved behavior(Confirmed) OCD - Active Obsessive-compulsive disorder(Confirmed) Allergies, Adverse Reactions, Alerts Substance Reaction Severity Status NKDA Active Medications hydromorphone 1 mg, Route: IVP, ONCE, Dosing Weight 80.909, kg, Priority: STAT, Start date: 10:28:00, Stop date: 06/14/14 10:28:00 Start Date: 06/14/14 Stop Date: 06/14/14 Status: Completed magnesium citrate 8.85% oral liquid 8.725 mj=551 ml, PO, ONCE, # 300 ml, 0 Refill(s) Start Date: 06/14/14 Status: Ordered MiraLax oral powder for reconstitution 17 gm, PO, Daily, # 527 gm, 0 Refill(s) Start Date: 06/14/14 Status: Ordered NS (Bolus) IV 500 mL, 500 ml/hr, Infuse Over: 1 hr, Route: IV, 500, Drug form: INJ, ONCE, Prio rity: STAT, Dosing Weight 80.909 kg, Start date: 06/14/14 10:28:00, Duration: 1 doses or times, Stop date: 06/14/14 10:28:00 Start Date: 06/14/14 Stop Date: 06/14/14 Status: Completed ondansetron 4 mg, Route: IVP, Drug form: INJ, ONCE, Dosing Weight 80.909, kg, Priority: STAT , Start date: 06/14/14 10:28:00, Stop date: 06/14/14 10:28:00 Start Date: 06/14/14 Stop Date: 06/14/14 Status: Completed Sodium Chloride 0.9% (Bolus) IV 1,000 mL, 1,000 ml/hr, Infuse Over: 1 hr, Route: IV, 1,000, Drug form: INJ, ONCE , Priority: STAT, Dosing Weight 80.909 kg, Start date: 06/14/14 13:53:00, Durati on: 1 doses or times, Stop date: 06/14/14 13:53:00 Start Date: 06/14/14 Stop Date: 06/14/14 Status: Ordered Results ELECTROLYTES Most recent to 1 oldest [Reference Range]: Sodium Lvl [135-145 131 mEq/L mEq/L] *LOW* (06/14/14 11: AM) Potassium Lvl 3.5 mEq/L [3.5-5.1 mEq/L] (06/14/14 11: AM) Chloride Lvl [95-109 97 mEq/L mEq/L] (06/14/14 11: AM) CO2 [24-32 mEq/L] 24 mEq/L (06/14/14 11: AM) AGAP [10.0-20.0 13.5 mEq/L mEq/L] (06/14/14 11: AM) CHEM PANEL Most recent to 1 oldest [Reference Range]: Creatinine Lvl 1.3 mg/dL [0.5-1.4 mg/dL] (06/14/14 11: AM) eGFR 42 mL/min/1.73m2 1 *NA* (06/14/14 11: AM) BUN [7-22 mg/dL] 26 mg/dL *HI* (06/14/14 11: AM) B/C Ratio [6-25] 20 (06/14/14 11:01 AM) Glucose Lvl [70-99 134 mg/dL 2 mg/dL] *HI* (06/14/14 11: AM) Total Protein 7.1 g/dL [6.4-8.4 g/dL] (06/14/14 11: AM) Albumin Lvl [3.5-5.0 3.3 g/dL g/dL] *LOW* (06/14/14 11: AM) Globulin [2.0-4.0 3.8 g/dL g/dL] (06/14/14 11: AM) A/G Ratio [0.7-1.6] 0.9 (06/14/14 11:01 AM) Calcium Lvl 8.9 mg/dL [8.5-10.5 mg/dL] (06/14/14 11: AM) Phosphorus [2.5-4.5 1.9 mg/dL mg/dL] *LOW* (06/14/14 11: AM) Magnesium Lvl 1.8 mg/dL [1.8-2.4 mg/dL] (06/14/14 11:01 AM) ALT [0-65 unit/L] 106 unit/L *HI* (06/14/14 11:01 AM) AST [0-37 unit/L] 54 unit/L *HI* (06/14/14 11:01 AM) Alk Phos [39-136 190 unit/L unit/L] *HI* (06/14/14 11:01 AM) Bili Total [0.2-1.3 1.7 mg/dL mg/dL] *HI* (06/14/14 11:01 AM) Lipase Lvl [73-393 154 unit/L unit/L] (06/14/14 11:01 AM) Lactic Acid Lvl 1.8 mMol/L [0.5-2.2 mMol/L] (06/14/14 11:01 AM) 1Result Comment: The eGFR is calculated [...] be mul tiplied by the estimated BMI. 2Interpretive Data: Adult reference range values reflect the clinical guidelines of the [place] [employer]. CARDIAC ENZYMES Most recent to 1 oldest [Reference Range]: Total CK [12-191 54 unit/L unit/L] (06/14/14 11:01 AM) CK MB [0.5-3.6 <0.5 ng/mL ng/mL] (06/14/14 11:01 AM) CK MB Index <0.9 [0.0-2.5] (06/14/14 11:01 AM) Troponin-I <0.02 ng/mL [0.00-0.40 ng/mL] (06/14/14 11:01 AM) URINE AND STOOL Most recent to 1 oldest [Reference Range]: UA Turbidity [Clear] Clear (06/14/14 11:46 AM) UA Color Nataliia *NA* (06/14/14 11:46 AM) UA pH [5.0-8.0] 5.0 (06/14/14 11:46 AM) UA Spec Grav 1.023 [<=1.030] (06/14/14 11:46 AM) UA Glucose [Negative Negative mg/dL mg/dL] *NA* (06/14/14 11:46 AM) UA Blood [Negative] Negative (06/14/14 11:46 AM) UA Ketones [Negative Trace mg/dL mg/dL] *ABN* (06/14/14 11:46 AM) UA Protein [Negative Negative mg/dL mg/dL] (06/14/14 11:46 AM) UA Urobilinogen 4.0 mg/dL [0.1-1.0 mg/dL] *HI* (06/14/14 11:46 AM) UA Bili [Negative] Negative *NA* (06/14/14 11:46 AM) UA Leuk Est Negative [Negative] (06/14/14 11:46 AM) UA Nitrite Negative [Negative] (06/14/14 11:46 AM) UA WBC [0-5 /HPF] 3 /HPF (06/14/14 11:46 AM) UA Sq Epi [Few /LPF] Many /LPF *ABN* (06/14/14 11:46 AM) UA Mucus [None Seen Few /LPF /LPF] *NA* (06/14/14 11:46 AM) IMMUNOLOGY Most recent to 1 oldest [Reference Range]: Norman-Hep C Ab Negative [Negative] *NA* (06/14/14 10:55 AM) HEMATOLOGY Most recent to 1 oldest [Reference Range]: WBC [3.7-10.4 K/CMM] 12.2 K/CMM *HI* (06/14/14 10:55 AM) RBC [4.20-5.40 4.04 M/CMM M/CMM] *LOW* (06/14/14 10:55 AM) Hgb [12.0-16.0 g/dL] 12.5 g/dL (06/14/14 10:55 AM) Hct [36.0-48.0 %] 37.8 % (06/14/14 10:55 AM) MCV [80.0-98.0 fL] 93.5 fL (06/14/14 10:55 AM) MCH [27.0-31.0 pg] 31.0 pg (06/14/14 10:55 AM) MCHC [32.0-36.0 33.2 g/dL g/dL] (06/14/14 10:55 AM) RDW [11.5-14.5 %] 14.4 % (06/14/14 10:55 AM) Platelet [133-450 226 K/CMM K/CMM] (06/14/14 10:55 AM) MPV [7.4-10.4 fL] 9.1 fL (06/14/14 10:55 AM) Segs [45.0-75.0 %] 94.6 % *HI* (06/14/14 10:55 AM) Lymphocytes 2.4 % [20.0-40.0 %] *LOW* (06/14/14 10:55 AM) Monocytes [2.0-12.0 1.2 % %] *LOW* (06/14/14 10:55 AM) Eosinophils [0.0-4.0 1.5 % %] (06/14/14 10:55 AM) Basophils [0.0-1.0 0.3 % %] (06/14/14 10:55 AM) Segs-Bands # 11.5 K/CMM [1.5-8.1 K/CMM] *HI* (06/14/14 10:55 AM) Lymphocytes # 0.3 K/CMM [1.0-5.5 K/CMM] *LOW* (06/14/14 10:55 AM) Monocytes # [0.0-0.8 0.1 K/CMM K/CMM] (06/14/14 10:55 AM) Eosinophils # 0.2 K/CMM [0.0-0.5 K/CMM] (06/14/14 10:55 AM) PT [12.0-14.7 12.4 seconds seconds] (06/14/14 11:01 AM) INR [0.85-1.17] 0.93 3 (06/14/14 11:01 AM) PTT [22.9-35.8 26.5 seconds 4 seconds] (06/14/14 11:01 AM) 3Interpretive Data: RECOMMENDED RANGES FOR PROTIME INR: 2.0-3.0 for most medical and surgical thromboembolic states. 2.5-3.5 for artificial heart valves and recurrent embolism. INR SHOULD BE USED ONLY FOR PATIENTS ON STABLE ANTICOAGULANT THERAPY. 4Interpretive Data: Heparin Therapeutic Range: 57 - 92 Seconds VIRAL - SEROLOGY Most recent to 1 oldest [Reference Range]: Influ A [Negative] Negative (06/14/14 10:55 AM) Influ B [Negative] Negative 5 (06/14/14 10:55 AM) 5Interpretive Data: Influenza A&B Antigen: Due to the low sensitivity of this test a negative result does not exclude influ sakina virus infection. A diagnosis of influenza should be considered based on a p atient's clinical presentation and empiric antiviral treatment should be conside red, if indicated. If more conclusive testing is desired, follow-up confirmatory testing with either viral culture or PCR is warranted. Medications Administered During Your Visit No data available for this section Immunizations Vaccine Date Refusal Reason pneumococcal 23-valent vaccine 11/12/10 Procedures Procedure Type Body Site Date of Procedure Related Diagnosis Anastomosis of transverse colon to rectum Social History Social History Type Response Substance Abuse Use: None Alcohol Use: Current, Type: Wine, Frequency: 1-2 times per month Smoking Status Current every day smoker, Type: Cigarettes, Lives with someone who smokes, Cigarette Smoking Last 365 Days Yes, Reg Smoking Cessation Counseling No
--- OUTSIDE RECORDS SUMMARY | 2018-11-07 21:01 | XMS REPORT | Summary of Care ---
Author Author [facility] Organization [facility] Address Unknown Phone Unavailable Encounter REAL Singer(JOSH) [id number] Date(s): 10/28/15 - 10/28/15 [facility] [address] [place] [address]- Discharge Disposition: Home Attending Physician: Og Mi MD Referring Physician: Og Mi MD Vital Signs No data available for [...] Reason pneumococcal 23-valent vaccine 11/12/10 Procedures Procedure Date Related Diagnosis Body Site [...]
--- OUTSIDE RECORDS SUMMARY | 2018-11-07 21:01 | XMS REPORT | Summary of Care ---
Author Author [facility] Organization [facility] Address Unknown Phone Unavailable Encounter REAL Singer(JOSH) [id number] Date(s): 10/18/15 - 10/19/15 [facility] [address] [place] [address]- Discharge Diagnosis: Calculus of kidney with calculus of ureter Discharge Disposition: Home Attending Physician: Max Holland MD Vital Signs Most recent to 1 2 oldest [Reference Range]: Height 175.26 cm (10/18/15 10:14 PM) Temperature Oral 97.7 DegF [96.4-99.1 DegF] (10/18/15 10:18 PM) Blood Pressure 142/75 mmHg 175/104 mmHg [90-140/60-90 mmHg] *HI* *HI* (10/19/15 2:10 AM) (10/18/15 10:14 PM) Respiratory Rate 18 BRMIN 26 BRMIN [14-20 BRMIN] (10/19/15 2:10 AM) *HI* (10/18/15 10:14 PM) Peripheral Pulse 74 bpm Rate [60-100 bpm] (10/18/15 10:14 PM) Weight 95.455 kg (10/18/15 10:14 PM) Body Mass Index 31.08 m2 (10/18/15 10:14 PM) Problem List Condition Effective Dates Status Health [...] on 01/19/15. Originally documented as NEURONTIN. Medications Dilaudid 0.5 mg, Route: IVP, ONCE, Dosing Weight 95.455, kg, Priority: STAT, Start date: 10/18/15 23:16:00 CDT, Stop date: 10/18/15 23:16:00 CDT Start Date: 10/18/15 Stop Date: 10/18/15 Status: Completed famotidine 20 mg, 2 mL, Route: IVP, Drug form: INJ, ONCE, Dosing Weight 95.455, kg, Priorit y: STAT, Start date: 10/18/15 22:29:00 CDT, Stop date: 10/18/15 22:29:00 CDT Notes: (Same as: Pepcid)Can be dilute in 5-10cc NS IVP: Slow IV push over at le ast 2 minutes. Start Date: 10/18/15 Stop Date: 10/18/15 Status: Completed Flomax 0.4 mg oral capsule =1 tab, PO, Daily, # 14 tab, 0 Refill(s) Start Date: 10/19/15 Stop Date: 11/02/15 Status: Ordered ketOROLAC 15 mg, Route: IVP, Drug form: INJ, ONCE, Dosing Weight 95.455, kg, Priority: STA T, Start date: 10/19/15 1:45:00 CDT, Stop date: 10/19/15 1:45:00 CDT Start Date: 10/19/15 Stop Date: 10/19/15 Status: Completed morphine Sulfate 4 mg, Route: IVP, Drug form: INJ, ONCE, Dosing Weight 95.455, kg, Priority: STAT , Start date: 10/18/15 22:37:00 CDT, Stop date: 10/18/15 22:37:00 CDT Start Date: 10/18/15 Stop Date: 10/18/15 Status: Completed morphine Sulfate 4 mg, 2 mL, Route: IVP, Drug form: INJ, ONCE, Dosing Weight 95.455, kg, Priority : STAT, Start date: 10/18/15 22:29:00 CDT, Stop date: 10/18/15 22:29:00 CDT Notes: (Same as:MORPhine Sulfate) Start Date: 10/18/15 Stop Date: 10/18/15 Status: Completed naproxen 500 mg oral tablet 500 mg=1 tab, PO, BID, PRN Pain, # 30 tab, 0 Refill(s) Start Date: 10/19/15 Status: Ordered ondansetron 4 mg, Route: IVP, Drug form: INJ, ONCE, Dosing Weight 95.455, kg, Priority: STAT , Start date: 10/18/15 22:37:00 CDT, Stop date: 10/18/15 22:37:00 CDT Start Date: 10/18/15 Stop Date: 10/18/15 Status: Completed Saline Flush 0.9% 10 mL, Route: IVP, Drug Form: INJ, Dosing Weight 95.455, kg, PRN, PRN Line Flush , Start date: 10/18/15 22:29:00 CDT, Duration: 30 day, Stop date: 11/17/15 22:28 :00 CDT Notes: (Same as: BD Posiflush) Start Date: 10/18/15 Stop Date: 10/19/15 Status: Discontinued Sodium Chloride 0.9% IV 1,000 mL 1,000 mL, Rate: 125 ml/hr, Infuse over: 8 hr, Route: IV, Dosing Weight 95.455 kg , Total Volume: 1,000, Start date: 10/18/15 22:29:00 CDT, Duration: 30 day, Stop date: 11/17/15 22:28:00 CDT Start Date: 10/18/15 Stop Date: 10/19/15 Status: Discontinued Zofran 4 mg oral tablet 4 mg=1 tab, PO, Q6H, PRN Nausea/Vomiting, X 8 day, # 30 tab, 0 Refill(s) Start Date: 10/19/15 Stop Date: 10/27/15 Status: Ordered Results ELECTROLYTES Most recent to 1 oldest [Reference Range]: Sodium Lvl [135-145 138 mEq/L mEq/L] (10/18/15 10:41 PM) Potassium Lvl 3.2 mEq/L [3.5-5.1 mEq/L] *LOW* (10/18/15 10:41 PM) Chloride Lvl [95-109 105 mEq/L mEq/L] (10/18/15 10:41 PM) CO2 [24-32 mEq/L] 19 mEq/L *LOW* (10/18/15 10:41 PM) AGAP [10.0-20.0 17.2 mEq/L mEq/L] (10/18/15 10:41 PM) CHEM PANEL Most recent to 1 oldest [Reference Range]: Creatinine Lvl 1.48 mg/dL [0.50-1.40 mg/dL] *HI* (10/18/15 10:41 PM) eGFR 35 mL/min/1.73m2 1 *NA* (10/18/15 10:41 PM) BUN [7-22 mg/dL] 25 mg/dL *HI* (10/18/15 10:41 PM) B/C Ratio [6-25] 17 (10/18/15 10:41 PM) Glucose Lvl [70-99 157 mg/dL mg/dL] *HI* (10/18/15 10:41 PM) Total Protein 7.5 g/dL [6.4-8.4 g/dL] (10/18/15 10:41 PM) Albumin Lvl [3.5-5.0 3.9 g/dL g/dL] (10/18/15 10:41 PM) Globulin [2.0-4.0 3.6 g/dL g/dL] (10/18/15 10:41 PM) A/G Ratio [0.7-1.6] 1.1 (10/18/15 10:41 PM) Calcium Lvl 9.9 mg/dL [8.5-10.5 mg/dL] (10/18/15 10:41 PM) ALT [0-65 unit/L] 32 unit/L (10/18/15 10:41 PM) AST [0-37 unit/L] 15 unit/L (10/18/15 10:41 PM) Alk Phos [39-136 86 unit/L unit/L] (10/18/15 10:41 PM) Bili Total [0.2-1.3 1.0 mg/dL mg/dL] (10/18/15 10:41 PM) Amylase Lvl [25-115 37 unit/L unit/L] (10/18/15 10:41 PM) Lipase Lvl [73-393 74 unit/L unit/L] (10/18/15 10:41 PM) 1Result Comment: The eGFR is calculated [...] be mul tiplied by the estimated BMI. URINE AND STOOL Most recent to 1 oldest [Reference Range]: UA Turbidity [Clear] Clear (10/18/15 11:23 PM) UA Color Ltyellow *NA* (10/18/15 11:23 PM) UA pH [5.0-8.0] 6.0 (10/18/15 11:23 PM) UA Spec Grav 1.017 [<=1.030] (10/18/15 11:23 PM) UA Glucose [Negative Negative mg/dL mg/dL] *NA* (10/18/15 11:23 PM) UA Blood [Negative] Negative (10/18/15 11:23 PM) UA Ketones [Negative 80 mg/dL mg/dL] *ABN* (10/18/15 11:23 PM) UA Protein [Negative Negative mg/dL mg/dL] (10/18/15 11:23 PM) UA Urobilinogen <=1.0 mg/dL [0.1-1.0 mg/dL] *NA* (10/18/15 11:23 PM) UA Bili [Negative] Negative *NA* (10/18/15 11:23 PM) UA Leuk Est Negative [Negative] (10/18/15 11:23 PM) UA Nitrite Negative [Negative] (10/18/15 11:23 PM) UA WBC [0-5 /HPF] 1 /HPF (10/18/15 11:23 PM) UA RBC [0-2 /HPF] <1 /HPF (10/18/15 11:23 PM) UA Sq Epi [Few /LPF] Occasional /LPF *NA* (10/18/15 11:23 PM) HEMATOLOGY Most recent to 1 oldest [Reference Range]: WBC [3.7-10.4 K/CMM] 13.0 K/CMM *HI* (10/18/15 10:41 PM) RBC [4.20-5.40 4.45 M/CMM M/CMM] (10/18/15 10:41 PM) Hgb [12.0-16.0 g/dL] 13.9 g/dL (10/18/15 10:41 PM) Hct [36.0-48.0 %] 42.0 % (10/18/15 10:41 PM) MCV [80.0-98.0 fL] 94.3 fL (10/18/15 10:41 PM) MCH [27.0-31.0 pg] 31.2 pg *HI* (10/18/15 10:41 PM) MCHC [32.0-36.0 33.0 g/dL g/dL] (10/18/15 10:41 PM) RDW [11.5-14.5 %] 13.8 % (10/18/15 10:41 PM) Platelet [133-450 362 K/CMM K/CMM] (10/18/15 10:41 PM) MPV [7.4-10.4 fL] 8.7 fL (10/18/15 10:41 PM) Segs [45.0-75.0 %] 78.6 % *HI* (10/18/15 10:41 PM) Lymphocytes 14.3 % [20.0-40.0 %] *LOW* (10/18/15 10:41 PM) Monocytes [2.0-12.0 6.3 % %] (10/18/15 10:41 PM) Eosinophils [0.0-4.0 0.4 % %] (10/18/15 10:41 PM) Basophils [0.0-1.0 0.4 % %] (10/18/15 10:41 PM) Segs-Bands # 10.2 K/CMM [1.5-8.1 K/CMM] *HI* (10/18/15 10:41 PM) Lymphocytes # 1.9 K/CMM [1.0-5.5 K/CMM] (10/18/15 10:41 PM) Monocytes # [0.0-0.8 0.8 K/CMM K/CMM] (10/18/15 10:41 PM) Eosinophils # 0.1 K/CMM [0.0-0.5 K/CMM] (10/18/15 10:41 PM) Immunizations Vaccine Date Refusal Reason pneumococcal 23-valent [...]
--- OUTSIDE RECORDS SUMMARY | 2018-11-07 21:01 | XMS REPORT | Summary of Care ---
Author Organization Unknown Address Unknown Phone Unavailable Encounter [facility] Lucrecia(JOSH) [id number] Date(s): 01/05/14 - 01/09/14 [facility] [id number] [address] Discharge Disposition: Home Physician Attending: Grey Candelaria DO Physician Admitting: Grey Candelaria DO Reason for Visit SMALL BOWEL OBSTRUCTION Vital Signs 1 2 3 Most recent to oldest [Reference Range]: 160.02 cm (01/05/14 8:58 PM) Height 97.7 DegF (01/09/14 3:52 PM) 98.1 DegF (01/09/14 12:00 PM) 98.2 DegF (01/09/14 8:00 AM) Temperature Oral [96.4-99.1 DegF] 156 mmHg *HI* (01/09/14 3:52 PM) 143 mmHg *HI* (01/09/14 12:00 PM) 132 mmHg (01/09/14 8:00 AM) Systolic Blood Pressure [90-140 mmHg] 84 mmHg (01/09/14 3:52 PM) 78 mmHg (01/09/14 12:00 PM) 70 mmHg (01/09/14 8:00 AM) Diastolic Blood Pressure [60-90 mmHg] 16 BRMIN (01/09/14 3:52 PM) 16 BRMIN (01/09/14 12:00 PM) 17 BRMIN (01/09/14 8:00 AM) Respiratory Rate [14-20 BRMIN] 60 bpm (01/09/14 3:52 PM) 71 bpm (01/09/14 12:00 PM) 67 bpm (01/09/14 8:00 AM) Peripheral Pulse Rate [60-100 bpm] 77.273 kg (01/05/14 8:58 PM) Weight 30.18 m2 (01/05/14 8:58 PM) Body Mass Index Problem List Condition Effective Dates Status Health Status Informant Anxiety(Confirmed) Active HLD - Active Hyperlipidemia(Confi rmed) HTN - Active Hypertension(Confirm ed) HYPERTENSION(Confirm Resolved ed) N&V - Nausea and Active vomiting(Confirmed) Obsessive compulsive Resolved behavior(Confirmed) OCD - Active Obsessive-compulsive disorder(Confirmed) Allergies, Adverse Reactions, Alerts Substance Reaction Severity Status NKDA Active Medications aspirin 81 mg tablet, chewable 81 mg, 1 tab, Route: PO, Drug form: CHEWTAB, Daily, Dosing Weight 77.273, kg, St art date: 01/06/14 13:00:00, Duration: 30 day, Stop date: 02/05/14 9:00:00 Notes: Take with food. Start Date: 01/06/14 Stop Date: 01/09/14 Status: Discontinued Chloraseptic 1.4% spray 1 spray, Route: TOP, Q2H, Drug form: SPRY, PRN Sore Throat, Start date: 01/07/14 18:53:00, Duration: 30 day, Stop date: 02/06/14 18:52:00 Start Date: 01/07/14 Stop Date: 01/09/14 Status: Discontinued Crestor 40 mg, 4 tab, Route: PO, Drug form: TAB, Daily, Dosing Weight 77.273, kg, Start date: 01/07/14 9:00:00, Duration: 30 day, Stop date: 02/05/14 9:00:00 Notes: (Same As: Crestor) Start Date: 01/07/14 Stop Date: 01/06/14 Status: Canceled Crestor 10 mg, Route: PO, Drug form: TAB, Daily, Dosing Weight 77.273, kg, Start date: 0 01/07/14 9:00:00, Duration: 30 day, Stop date: 02/05/14 9:00:00 Start Date: 01/07/14 Stop Date: 01/06/14 Status: Canceled Evoxac 30 mg, 1 cap, Route: PO, Drug form: CAP, Daily, Dosing Weight 77.273, kg, Start date: 01/07/14 9:00:00, Duration: 30 day, Stop date: 02/05/14 9:00:00 Notes: Non-Formulary Drug. (Same As: Evoxac) Start Date: 01/07/14 Stop Date: 01/06/14 Status: Canceled hydrochlorothiazide-lisinopril 25 mg-20 mg oral tablet 1 tab, Route: PO, Drug Form: TAB, Dosing Weight 77.273, kg, Daily, Start date: 0 01/07/14 9:00:00, Duration: 30 day, Stop date: 02/05/14 9:00:00 Start Date: 01/07/14 Stop Date: 01/06/14 Status: Canceled levothyroxine 0.05 mg, Route: PO, Drug form: TAB, Daily, Dosing Weight 77.273, kg, Start date: 01/07/14 9:00:00, Duration: 30 day, Stop date: 02/05/14 9:00:00 Start Date: 01/07/14 Stop Date: 01/06/14 Status: Deleted lisinopril 10 mg, 1 tab, Route: PO, Drug form: TAB, Daily, Dosing Weight 77.273, kg, Start date: 01/07/14 9:00:00, Duration: 30 day, Stop date: 02/05/14 9:00:00 Notes: (Same as: Prinivil, Zestril) Start Date: 01/07/14 Stop Date: 01/09/14 Status: Discontinued morphine Sulfate 6 mg, 3 mL, Route: IVP, Drug form: INJ, ONCE, Dosing Weight 77.273, kg, Priority : STAT, Start date: 01/05/14 21:37:00, Stop date: 01/05/14 21:37:00 Notes: (Same as:MORPhine Sulfate) Start Date: 01/05/14 Stop Date: 01/05/14 Status: Completed morphine Sulfate 4 mg, 2 mL, Route: IVP, Drug form: INJ, ONCE, Dosing Weight 77.273, kg, Priority : STAT, Start date: 01/05/14 22:35:00, Stop date: 01/05/14 22:35:00 Notes: (Same as:MORPhine Sulfate) Start Date: 01/05/14 Stop Date: 01/06/14 Status: Completed morphine Sulfate 4 mg, 2 mL, Route: IVP, Drug form: INJ, Q3H, Dosing Weight 77.273, kg, PRN Pain Score 7-10, Start date: 01/06/14 4:36:00, Duration: 30 day, Stop date: 02/05/14 4:35:00 Notes: (Same as:MORPhine Sulfate) Start Date: 01/06/14 Stop Date: 01/09/14 Status: Discontinued ondansetron 4 mg, 2 mL, Route: IVP, Drug form: INJ, ONCE, Dosing Weight 77.273, kg, Priority : STAT, Start date: 01/05/14 21:37:00, Stop date: 01/05/14 21:37:00 Notes: (Same as: Zofran) Start Date: 01/05/14 Stop Date: 01/05/14 Status: Completed ondansetron 4 mg, 2 mL, Route: IVP, Drug form: INJ, Q8H, Dosing Weight 77.273, kg, PRN Nause a & Vomiting, Start date: 01/06/14 4:36:00, Duration: 30 day, Stop date: 02/05/14 4:35:00 Notes: (Same as: Zofran) Start Date: 01/06/14 Stop Date: 01/09/14 Status: Discontinued pantoprazole 40 mg, Route: IVP, Drug form: INJ, ONCE, Dosing Weight 77.273, kg, For IV push r econstitute with 10 ml 0.9% sodium chloride and push over at least 3 minutes, Pr iority: STAT, Start date: 01/05/14 21:37:00, Stop date: 01/05/14 21:37:00 Notes: For IV push reconstitute with 10 ml 0.9% sodium chloride and push over 2 minutes. (Same as: Protonix) Start Date: 01/05/14 Stop Date: 01/05/14 Status: Completed Paxil 40 mg, 2 tab, Route: PO, Drug form: TAB, Bedtime, Dosing Weight 77.273, kg, Star t date: 01/09/14 21:00:00, Duration: 30 day, Stop date: 02/07/14 21:00:00 Notes: (Same as: Paxil) Start Date: 01/09/14 Stop Date: 01/09/14 Status: Canceled Paxil 40 mg, Route: PO, Drug form: TAB, Daily, Dosing Weight 77.273, kg, Start date: 0 01/07/14 9:00:00, Duration: 30 day, Stop date: 02/05/14 9:00:00 Start Date: 01/07/14 Stop Date: 01/06/14 Status: Deleted Paxil 40 mg, 2 tab, Route: PO, Drug form: TAB, Daily, Dosing Weight 77.273, kg, Start date: 01/07/14 9:00:00, Duration: 30 day, Stop date: 02/05/14 9:00:00 Notes: (Same as: Paxil) Start Date: 01/07/14 Stop Date: 01/08/14 Status: Discontinued potassium chloride 20 mEq, 1 tab, Route: PO, Drug form: ERTAB, ONCE, Dosing Weight 77.273, kg, Star t date: 01/08/14 7:07:00, Stop date: 01/08/14 7:07:00 Notes: (Same as: K-Dur 20)"Do Not Crush" With food and full glass of water Start Date: 01/08/14 Stop Date: 01/08/14 Status: Completed Saline Flush 0.9% 5 mL, Route: IVP, Drug Form: INJ, Dosing Weight 77.273, kg, PRN, PRN Line Flush, Start date: 01/05/14 21:37:00, Duration: 24 hr, Stop date: 01/06/14 21:36:00 Notes: Same as: BD Posiflush Sterile Start Date: 01/05/14 Stop Date: 01/06/14 Status: Completed Saline Flush 0.9% 5 ml, Route: IVP, Drug Form: INJ, Dosing Weight 77.273, kg, PRN, PRN Line Flush, Start date: 01/06/14 4:36:00, Duration: 30 day, Stop date: 02/05/14 4:35:00 Notes: (Same as: BD Posiflush) Start Date: 01/06/14 Stop Date: 01/09/14 Status: Discontinued Sodium Chloride 0.9% (Bolus) IV 1,000 mL, 1000 ml/hr, Infuse Over: 1 hr, Route: IV, 1,000, Drug form: INJ, ONCE, Priority: STAT, Dosing Weight 77.273 kg, Start date: 01/05/14 21:37:00, Duratio n: 1 doses or times, Stop date: 01/05/14 21:37:00 Start Date: 01/05/14 Stop Date: 01/05/14 Status: Completed Sodium Chloride 0.9% IV 1,000 mL 1,000 mL, Rate: 125 ml/hr, Infuse over: 8 hr, Route: IV, Dosing Weight 77.273 kg , Total Volume: 1,000, Start date: 01/06/14 4:36:00, Duration: 30 day, Stop date : 02/05/14 4:35:00 Start Date: 01/06/14 Stop Date: 01/09/14 Status: Discontinued Synthroid 50 microgram, 1 tab, Route: PO, Drug form: TAB, Q630AM, Dosing Weight 77.273, kg , Start date: 01/07/14 6:30:00, Duration: 30 day, Stop date: 02/05/14 6:30:00 Notes: Take 1 hour before or 2 hours after meal; Enteral feeds may interefere wi th the absorption of this medication.(Same as:Levothroid, Synthroid) Start Date: 01/07/14 Stop Date: 01/09/14 Status: Discontinued tramadol 50 mg, PO, Q4-6H, Pain, # 20 tab, 0 Refill(s) Start Date: 01/06/14 Stop Date: 01/10/14 Status: Ordered Zofran 4 mg, 2 mL, Route: IVP, Drug form: INJ, ONCE, Dosing Weight 77.273, kg, Priority : STAT, Start date: 01/05/14 22:35:00, Stop date: 01/05/14 22:35:00 Notes: (Same as: Zofran) Start Date: 01/05/14 Stop Date: 01/06/14 Status: Completed Zosyn 3.375 gm, Route: IVPB, Drug form: PDR/INJ, ONCE, Dosing Weight 77.273, kg, Prior ity: STAT, Start date: 01/06/14 1:27:00, Stop date: 01/06/14 1:27:00 Start Date: 01/06/14 Stop Date: 01/06/14 Status: Completed Results ELECTROLYTES 1 2 3 Most recent to oldest [Reference Range]: 141 mEq/L (01/09/14 4:32 AM) 147 mEq/L *HI* (01/08/14 3:50 AM) 143 mEq/L (01/07/14 6:41 AM) Sodium Lvl [135-145 mEq/L] 3.3 mEq/L *LOW* (01/09/14 4:32 AM) 3.3 mEq/L *LOW* (01/08/14 3:50 AM) 3.7 mEq/L (01/07/14 6:41 AM) Potassium Lvl [3.5-5.1 mEq/L] 110 mEq/L *HI* (01/09/14 4:32 AM) 109 mEq/L (01/08/14 3:50 AM) 110 mEq/L *HI* (01/07/14 6:41 AM) Chloride Lvl [95-109 mEq/L] 24 mEq/L (01/09/14 4:32 AM) 28 mEq/L (01/08/14 3:50 AM) 23 mEq/L *LOW* (01/07/14 6:41 AM) CO2 [24-32 mEq/L] 10.3 mEq/L (01/09/14 4:32 AM) 13.3 mEq/L (01/08/14 3:50 AM) 13.7 mEq/L (01/07/14 6:41 AM) AGAP [10.0-20.0 mEq/L] CHEM PANEL 1 2 3 Most recent to oldest [Reference Range]: 1.0 mg/dL (01/09/14 4:32 AM) 1.1 mg/dL (01/08/14 3:50 AM) 1.1 mg/dL (01/07/14 6:41 AM) Creatinine Lvl [0.5-1.4 mg/dL] 57 mL/min/1.73m2 1 *NA* (01/09/14 4:32 AM) 51 mL/min/1.73m2 2 *NA* (01/08/14 3:50 AM) 51 mL/min/1.73m2 3 *NA* (01/07/14 6:41 AM) eGFR 11 mg/dL (01/09/14 4:32 AM) 16 mg/dL (01/08/14 3:50 AM) 17 mg/dL (01/07/14 6:41 AM) BUN [7-22 mg/dL] 11 (01/09/14 4:32 AM) 15 (01/07/14 6:41 AM) 13 (01/05/14 9:40 PM) B/C Ratio [6-25] 101 mg/dL 4 *HI* (01/09/14 4:32 AM) 79 mg/dL 5 (01/08/14 3:50 AM) 102 mg/dL 6 *HI* (01/07/14 6:41 AM) Glucose Lvl [70-99 mg/dL] 5.9 g/dL *LOW* (01/09/14 4:32 AM) 5.9 g/dL *LOW* (01/07/14 6:41 AM) 8.2 g/dL (01/05/14 9:40 PM) Total Protein [6.4-8.4 g/dL] 2.8 g/dL *LOW* (01/09/14 4:32 AM) 3.1 g/dL *LOW* (01/07/14 6:41 AM) 4.3 g/dL (01/05/14 9:40 PM) Albumin Lvl [3.5-5.0 g/dL] 3.1 g/dL (01/09/14 4:32 AM) 2.8 g/dL (01/07/14 6:41 AM) 3.9 g/dL (01/05/14 9:40 PM) Globulin [2.0-4.0 g/dL] 0.9 (01/09/14 4:32 AM) 1.1 (01/07/14 6:41 AM) 1.1 (01/05/14 9:40 PM) A/G Ratio [0.7-1.6] 8.0 mg/dL *LOW* (01/09/14 4:32 AM) 8.2 mg/dL *LOW* (01/08/14 3:50 AM) 8.9 mg/dL (01/07/14 6:41 AM) Calcium Lvl [8.5-10.5 mg/dL] 25 unit/L (01/09/14 4:32 AM) 16 unit/L (01/07/14 6:41 AM) 23 unit/L (01/05/14 9:40 PM) ALT [0-65 unit/L] 29 unit/L (01/09/14 4:32 AM) 16 unit/L (01/07/14 6:41 AM) 23 unit/L (01/05/14 9:40 PM) AST [0-37 unit/L] 77 unit/L (01/09/14 4:32 AM) 75 unit/L (01/07/14 6:41 AM) 112 unit/L (01/05/14 9:40 PM) Alk Phos [39-136 unit/L] 0.7 mg/dL (01/09/14 4:32 AM) 1.0 mg/dL (01/07/14 6:41 AM) 0.9 mg/dL (01/05/14 9:40 PM) Bili Total [0.2-1.3 mg/dL] 25 unit/L (01/09/14 4:32 AM) 58 unit/L (01/05/14 9:40 PM) Amylase Lvl [25-115 unit/L] 102 unit/L (01/09/14 4:32 AM) 98 unit/L (01/05/14 9:40 PM) Lipase Lvl [73-393 unit/L] 1Result Comment: The eGFR is calculated using [...] be mul tiplied by the estimated BMI. 2Result Comment: The eGFR is calculated using [...] be mul tiplied by the estimated BMI. 3Result Comment: The eGFR is calculated using [...] be mul tiplied by the estimated BMI. 4Interpretive Data: Adult reference range values reflect the clinical guidelines of the [place] [employer]. 5Interpretive Data: Adult reference range values reflect the clinical guidelines of the [place] [employer]. 6Interpretive Data: Adult reference range values reflect the clinical guidelines of the [place] [employer]. CARDIAC ENZYMES 1 2 3 Most recent to oldest [Reference Range]: 98 unit/L (01/05/14 9:40 PM) Total CK [12-191 unit/L] 0.9 ng/mL (01/05/14 9:40 PM) CK MB [0.5-3.6 ng/mL] 0.9 (01/05/14 9:40 PM) CK MB Index [0.0-2.5] <0.02 ng/mL (01/05/14 9:40 PM) Troponin-I [0.00-0.40 ng/mL] URINE AND STOOL 1 2 3 Most recent to oldest [Reference Range]: Slight *ABN* (01/05/14 10:00 PM) UA Turbidity [Clear] Yellow *NA* (01/05/14 10:00 PM) UA Color [Yellow] 8.0 (01/05/14 10:00 PM) UA pH [5.0-8.0] 1.020 (01/05/14 10:00 PM) UA Spec Grav [<=1.030] Negative mg/dL *NA* (01/05/14 10:00 PM) UA Glucose [Negative mg/dL] Negative (01/05/14 10:00 PM) UA Blood [Negative] 20 mg/dL *ABN* (01/05/14 10:00 PM) UA Ketones [Negative mg/dL] 30 mg/dL *ABN* (01/05/14 10:00 PM) UA Protein [Negative mg/dL] <=1.0 mg/dL *NA* (01/05/14 10:00 PM) UA Urobilinogen [0.1-1.0 mg/dL] Negative *NA* (01/05/14 10:00 PM) UA Bili [Negative] Negative (01/05/14 10:00 PM) UA Leuk Est [Negative] Negative (01/05/14 10:00 PM) UA Nitrite [Negative] 2 /HPF (01/05/14 10:00 PM) UA WBC [0-5 /HPF] 1 /HPF (01/05/14 10:00 PM) UA RBC [0-2 /HPF] Few /HPF *NA* (01/05/14 10:00 PM) UA Bacteria [None Seen /HPF] Moderate /LPF *ABN* (01/05/14 10:00 PM) UA Sq Epi [Few /LPF] 1 /LPF (01/05/14 10:00 PM) UA Hyal Cast [0-2 /LPF] Few /LPF *NA* (01/05/14 10:00 PM) UA Mucus [None Seen /LPF] HEMATOLOGY 1 2 3 Most recent to oldest [Reference Range]: 7.4 K/CMM (01/09/14 4:32 AM) 5.9 K/CMM (01/08/14 3:50 AM) 5.2 K/CMM (01/07/14 6:41 AM) WBC [3.7-10.4 K/CMM] 3.38 M/CMM *LOW* (01/09/14 4:32 AM) 3.46 M/CMM *LOW* (01/08/14 3:50 AM) 3.64 M/CMM *LOW* (01/07/14 6:41 AM) RBC [4.20-5.40 M/CMM] 10.7 g/dL *LOW* (01/09/14 4:32 AM) 11.1 g/dL *LOW* (01/08/14 3:50 AM) 11.6 g/dL *LOW* (01/07/14 6:41 AM) Hgb [12.0-16.0 g/dL] 31.9 % *LOW* (01/09/14 4:32 AM) 32.6 % *LOW* (01/08/14 3:50 AM) 34.5 % *LOW* (01/07/14 6:41 AM) Hct [36.0-48.0 %] 94.4 fL (01/09/14 4:32 AM) 94.2 fL (01/08/14 3:50 AM) 94.8 fL (01/07/14 6:41 AM) MCV [81.0-99.0 fL] 31.6 pg *HI* (01/09/14 4:32 AM) 32.1 pg *HI* (01/08/14 3:50 AM) 31.8 pg *HI* (01/07/14 6:41 AM) MCH [27.0-31.0 pg] 33.4 g/dL (01/09/14 4:32 AM) 34.1 g/dL (01/08/14 3:50 AM) 33.5 g/dL (01/07/14 6:41 AM) MCHC [32.0-36.0 g/dL] 13.4 % (01/09/14 4:32 AM) 13.3 % (01/08/14 3:50 AM) 13.8 % (01/07/14 6:41 AM) RDW [11.5-14.5 %] 232 K/CMM (01/09/14 4:32 AM) 219 K/CMM (01/08/14 3:50 AM) 236 K/CMM (01/07/14 6:41 AM) Platelet [133-450 K/CMM] 8.6 fL (01/09/14 4:32 AM) 8.3 fL (01/08/14 3:50 AM) 8.2 fL (01/07/14 6:41 AM) MPV [7.4-10.4 fL] 54.1 % (01/09/14 4:32 AM) 55.3 % (01/08/14 3:50 AM) 57.9 % (01/07/14 6:41 AM) Segs [45.0-75.0 %] 32.8 % (01/09/14 4:32 AM) 32.2 % (01/08/14 3:50 AM) 25.2 % (01/07/14 6:41 AM) Lymphocytes [20.0-40.0 %] 7.9 % (01/09/14 4:32 AM) 7.6 % (01/08/14 3:50 AM) 13.6 % *HI* (01/07/14 6:41 AM) Monocytes [2.0-12.0 %] 4.8 % *HI* (01/09/14 4:32 AM) 4.6 % *HI* (01/08/14 3:50 AM) 2.8 % (01/07/14 6:41 AM) Eosinophils [0.0-4.0 %] 0.4 % (01/09/14 4:32 AM) 0.3 % (01/08/14 3:50 AM) 0.5 % (01/07/14 6:41 AM) Basophils [0.0-1.0 %] 4.0 K/CMM (01/09/14 4:32 AM) 3.3 K/CMM (01/08/14 3:50 AM) 3.0 K/CMM (01/07/14 6:41 AM) Segs-Bands # [1.5-8.1 K/CMM] 2.4 K/CMM (01/09/14 4:32 AM) 1.9 K/CMM (01/08/14 3:50 AM) 1.3 K/CMM (01/07/14 6:41 AM) Lymphocytes # [1.0-5.5 K/CMM] 0.6 K/CMM (01/09/14 4:32 AM) 0.4 K/CMM (01/08/14 3:50 AM) 0.7 K/CMM (01/07/14 6:41 AM) Monocytes # [0.0-0.8 K/CMM] 0.4 K/CMM (01/09/14 4:32 AM) 0.3 K/CMM (01/08/14 3:50 AM) 0.1 K/CMM (01/07/14 6:41 AM) Eosinophils # [0.0-0.5 K/CMM] Medications Administered During Your Visit No data available for this section Immunizations Vaccine Date Refusal Reason pneumococcal 23-valent vaccine 11/12/10 Social History Social History Type Response Smoking Status Never smoker, Exposure to Tobacco Smoke None, Cigarette Smoking Last 365 Days No, Reg Smoking Cessation Counseling No Assessment and Plan Extracted from: Title: Clinical Document Author: Britton Chávez MD Date: 01/09/14 GI PROGRESS NOTE [facility] SUBJECTIVE Events of the day reviewed. No nausea, no vomiting, tolerating po without difficulty. OBJECTIVE Vital Signs (last 24 hrs) Last Charted Minimum Maximum Temp98.1 (JAN 09 12:00)97.7 (JAN 08 16:00)H 99.2 (JAN 09 03:49) Heart Rate71 (JAN 09 12:00)67 (JAN 08 16:00)76 (JAN 09 03:49) Resp Rate 16 (JAN 09 12:00)14 (JAN 09 03:49)17 (JAN 09 08:00) SBPH 143 (JAN 09 12:00)105 (JAN 09 03:49)H 150 (JAN 08 20:28) DBP78 (JAN 09 12:00)62 (JAN 09 03:49)H 91 (JAN 08 20:28) Physical Exam: Alert and oriented Good air movement bilateraly Regular rate Abdomen: soft, NTND, +bs Ext: trace edema Labs (Last four charted values) WBC 7.4(JAN 09)5.9(JAN 08)5.2(JAN 07)H 12.8(JAN 05) Hgb L 10.7(JAN 09)L 11.1(JAN 08)L 11.6(JAN 07)14.6(JAN 05) Hct L 31.9(JAN 09)L 32.6(JAN 08)L 34.5(JAN 07)43.3(JAN 05) Plt 232(JAN 09)219(JAN 08)236(JAN 07)336(JAN 05) Na 141(JAN 09)H 147(JAN 08)143(JAN 07)140(JAN 05) K L 3.3(JAN 09)L 3.3(JAN 08)3.7(JAN 07)3.5(JAN 05) CO2 24(JAN 09)28(JAN 08)L 23(JAN 07)25(JAN 05) Cl H 110(JAN 09)109(JAN 08)H 110(JAN 07)100(JAN 05) Cr 1.0(JAN 09)1.1(JAN 08)1.1(JAN 07)1.4(JAN 05) BUN 11(JAN 09)16(JAN 08)17(JAN 07)18(JAN 05) Glucose Random H 101(JAN 09)79(JAN 08)H 102(JAN 07)H 202(JAN 05) Ca L 8.0(JAN 09)L 8.2(JAN 08)8.9(JAN 07)10.4(JAN 05) Troponin <0.02(JAN 05) CK MB 0.9(JAN 05) Total CK 98(JAN 05) A/P Partial SBO, resolved Colectomy Nausea/vomiting - ok from gi standpoint for d/c - f/u GI Clinic in 2-3 weeks
--- OUTSIDE RECORDS SUMMARY | 2018-11-07 21:01 | XMS REPORT | Summary of Care ---
Author Organization Unknown Address Unknown Phone Unavailable Encounter [facility] Bayr_tenisha(JOSH) [id number] Date(s): 08/19/14 - 08/19/14 [facility] [address] [place] [address]- Discharge Disposition: Home Physician Attending: Manny Whyte MD Physician_Referring: Manny Whyte MD Vital Signs No data available for this section Problem List Condition Effective Dates Status Health Status Informant Anxiety(Confirmed) Active Fibromyalgia(Confirm Resolved ed) HLD - Active Hyperlipidemia(Confi rmed) HTN - Active Hypertension(Confirm ed) HYPERTENSION(Confirm Resolved ed) Hypothyroidism(Confi Resolved rmed) N&V - Nausea and Active vomiting(Confirmed) Obsessive compulsive Resolved behavior(Confirmed) OCD - Active Obsessive-compulsive disorder(Confirmed) Sleep Resolved apnea(Confirmed)1 1uses CPAP Allergies, Adverse Reactions, Alerts Substance Reaction Severity Status NKDA Active Medications No data available for this section [...]
--- OUTSIDE RECORDS SUMMARY | 2018-11-07 21:01 | XMS REPORT | Summary of Care ---
Author Author [facility] Organization [facility] Address Unknown Phone Unavailable Encounter REAL Singer(JOSH) [phone] Date(s): 03/15/18 - 03/29/18 [facility] [id number] [facility] provided by [facility] [place] [address]- Encounter Diagnosis Unspecified fracture of right ilium, initial encounter for closed fracture (Final) - 04/04/18 Acute kidney failure, unspecified (Final) - Major depressive disorder, recurrent, severe with psychotic symptoms (Final) - Encephalopathy, unspecified (Final) - Essential (primary) hypertension (Final) - Hypothyroidism, unspecified (Final) - Encounter for immunization (Final) - Hyperlipidemia, unspecified (Final) - shelter (current) use of aspirin (Final) - Anxiety disorder, unspecified (Final) - Unspecified urinary incontinence (Final) - History of falling (Final) - Fall on same level from slipping, tripping and stumbling without subsequent stri clinton against object, initial encounter (Final) - Contusion of right eyelid and periocular area, initial encounter (Final) - Disorientation, unspecified (Final) - Unspecified fall, initial encounter (Final) - Obesity, unspecified (Final) - Hypercalcemia (Final) - Personal history of nicotine dependence (Final) - Obsessive-compulsive disorder, unspecified (Final) - Obstructive sleep apnea (adult) (pediatric) (Final) - Age-related osteoporosis without current pathological fracture (Final) - Patient's noncompliance with other medical treatment and regimen (Final) - Discharge Disposition: Half-Way Facility Attending Physician: Sabrina Monsivais DO Admitting Physician: Sabrina Monsivais DO Vital Signs 1 2 3 Most recent to oldest [Reference Range]: 160.02 cm (03/16/18 12:41 AM) Height 97.9 DegF (03/29/18 12:00 PM) 98.0 DegF (03/29/18 8:00 AM) 97.7 DegF (03/28/18 11:27 PM) Temperature Oral [96.4-99.1 DegF] 160/100 mmHg *HI* (03/29/18 12:00 PM) 178/81 mmHg *HI* (03/29/18 8:00 AM) 163/76 mmHg *HI* (03/29/18 4:24 AM) Blood Pressure [90-140/60-90 mmHg] 20 BRMIN (03/29/18 12:00 PM) 18 BRMIN (03/29/18 8:00 AM) 20 BRMIN (03/28/18 4:00 PM) Respiratory Rate [14-20 BRMIN] 89 bpm (03/29/18 12:00 PM) 72 bpm (03/29/18 8:00 AM) 73 bpm (03/29/18 4:24 AM) Peripheral Pulse Rate [60-100 bpm] 86.818 kg (03/20/18 11:17 AM) 86.818 kg (03/20/18 9:18 AM) 87.273 kg (03/19/18 5:39 PM) Weight 34.08 m2 (03/16/18 12:41 AM) Body Mass Index Problem List Condition Effective Dates Status Health Status Informant Fibromyalgia(Confirm Resolved ed) HLD - Active Hyperlipidemia(Confi rmed) HTN - Active Hypertension(Confirm ed) HYPERTENSION(Confirm Resolved ed) Hypothyroidism(Confi Resolved rmed) Obsessive compulsive Resolved behavior(Confirmed) Sleep Resolved apnea(Confirmed)1 1uses CPAP Allergies, Adverse Reactions, Alerts Substance Reaction Severity Status gabapentin1 Active traMADol2 Active 1Data migrated from [facility] on 01/19/15. Originally documented as NEURONTIN. 2confusion Medications acetaminophen 1,000 mg, 2 tab, Route: PO, Drug form: TAB, Q6Hnow, Dosing Weight 85.455, kg, St art date: 03/15/18 23:00:00 CDT, Duration: 30 day, Stop date: 04/14/18 17:00:00 LOAN CLOSER Notes: Max acetaminophen 4000 mg/day (4 gm/day). (Same as: Tylenol Extra Streng th) Start Date: 03/15/18 Stop Date: 03/17/18 Status: Discontinued acetaminophen 650 mg, 2 tab, Route: PO, Drug form: TAB, Q8H, Dosing Weight 87.273, kg, Start d ate: 03/22/18 16:00:00 CDT, Duration: 30 day, Stop date: 04/21/18 8:00:00 LOAN CLOSER Notes: Do not exceed 4 gm/day. (Same as: Tylenol) Start Date: 03/22/18 Stop Date: 03/29/18 Status: Discontinued acetaminophen 1,000 mg, 2 tab, Route: PO, Drug form: TAB, Q6Hnow, Dosing Weight 87.273, kg, St art date: 03/17/18 11:00:00 CDT, Duration: 30 day, Stop date: 04/16/18 5:00:[address] Notes: Max acetaminophen 4000 mg/day (4 gm/day). (Same as: Tylenol Extra Streng th) Start Date: 03/17/18 Stop Date: 03/22/18 Status: Discontinued acetaminophen 325 mg oral tablet 650 mg=2 tab, PO, BID, 0 Refill(s) Start Date: 03/29/18 Status: Ordered allopurinol 300 mg oral tablet 300 mg=1 tab, PO, Daily Start Date: 03/29/18 Status: Ordered aspirin 81 mg tablet, chewable 81 mg=1 tab, PO, Daily, 0 Refill(s) Start Date: 03/29/18 Stop Date: 04/26/18 Status: Discontinued aspirin 81 mg tablet, chewable 81 mg, 1 tab, Route: PO, Drug form: CHEWTAB, Daily, Dosing Weight 85.455, kg, St art date: 03/16/18 9:00:00 CDT, Duration: 30 day, Stop date: 04/14/18 9:00:00 CS T Notes: Take with food. Start Date: 03/16/18 Stop Date: 03/29/18 Status: Discontinued atorvastatin 20 mg oral tablet 20 mg=1 tab, PO, Bedtime, # 30 tab, 0 Refill(s) Start Date: 03/29/18 Stop Date: 04/22/18 Status: Discontinued calcium (as carbonate)-vitamin D 500 mg-400 intl units oral tablet 1 tab, Route: PO, Drug Form: TAB, Dosing Weight 87.273, kg, BID, Start date: 9:00:00 CDT, Duration: 30 day, Stop date: 04/14/18 17:00:00 LOAN CLOSER Notes: (calcium carbonate-vit D 500mg-400unit TAB) Same as: Oyster-D, OsCal-D Start Date: 03/16/18 Stop Date: 03/29/18 Status: Discontinued calcium-vitamin D 600 mg-400 intl units oral tablet 1 tab, PO, BID, 0 Refill(s) Start Date: 03/29/18 Stop Date: 04/22/18 Status: Discontinued CeleBREX 200 mg, Route: PO, Drug form: CAP, BID, Dosing Weight 86.818, kg, Start date: 9:00:00 CDT, Duration: 30 day, Stop date: 04/23/18 17:00:00 LOAN CLOSER Start Date: 03/25/18 Stop Date: 03/25/18 Status: Canceled cyclobenzaprine 10 mg, 1 tab, Route: PO, Drug form: TAB, Daily, Dosing Weight 85.455, kg, Start date: 03/16/18 9:00:00 CDT, Duration: 30 day, Stop date: 04/14/18 9:00:00 LOAN CLOSER Notes: (Same As: Flexeril) Start Date: 03/16/18 Stop Date: 03/20/18 Status: Discontinued Dextrose 50% Syringe 12.5 gm, 25 mL, Route: IVP, Drug Form: INJ, Dosing Weight 85.455, kg, PRN, PRN B lood Glucose Results, Start date: 03/15/18 22:18:00 CDT, Duration: 30 day, Stop date: 04/14/18 21:17:00 LOAN CLOSER Start Date: 03/15/18 Stop Date: 03/29/18 Status: Discontinued Dextrose 50% Syringe 25 gm, 50 mL, Route: IVP, Drug Form: INJ, Dosing Weight 85.455, kg, PRN, PRN Blo od Glucose Results, Start date: 03/15/18 22:18:00 CDT, Duration: 30 day, Stop da te: 04/14/18 21:17:00 LOAN CLOSER Start Date: 03/15/18 Stop Date: 03/29/18 Status: Discontinued docusate 100 mg, Route: PO, BID, Dosing Weight 87.273, kg, Start date: 03/17/18 17:00:00 CDT, Duration: 30 day, Stop date: 04/16/18 9:00:00 LOAN CLOSER Start Date: 03/17/18 Stop Date: 03/17/18 Status: Canceled docusate 100 mg, 1 cap, Route: PO, Drug form: CAP, BID, Dosing Weight 85.455, kg, Start d ate: 03/16/18 9:00:00 CDT, Duration: 30 day, Stop date: 04/14/18 17:00:00 LOAN CLOSER Notes: (Same as: Colace) (Do Not Crush) Start Date: 03/16/18 Stop Date: 03/29/18 Status: Discontinued docusate sodium 100 mg oral capsule 100 mg=1 cap, PO, BID, 0 Refill(s) Start Date: 03/29/18 Stop Date: 03/29/18 Status: Discontinued DULoxetine 60 mg, 1 cap, Route: PO, Drug form: DRC, BID, Dosing Weight 85.455, kg, Start da te: 03/22/18 17:00:00 CDT, Stop date: 04/21/18 9:00:00 LOAN CLOSER Notes: (Same as: Cymbalta) (Do Not Crush) Start Date: 03/22/18 Stop Date: 03/29/18 Status: Discontinued DULoxetine 60 mg, 1 cap, Route: PO, Drug form: DRC, Daily, Dosing Weight 85.455, kg, Start date: 03/16/18 9:00:00 CDT, Duration: 30 day, Stop date: 04/14/18 9:00:00 LOAN CLOSER Notes: (Same as: Cymbalta) (Do Not Crush) Start Date: 03/16/18 Stop Date: 03/22/18 Status: Discontinued DULoxetine 60 mg oral delayed release capsule 60 mg=1 cap, PO, BID, 0 Refill(s) Start Date: 03/29/18 Stop Date: 04/26/18 Status: Discontinued DULoxetine 60 mg oral delayed release capsule 60 mg=1 cap, PO, BID, 0 Refill(s) Start Date: 03/29/18 Stop Date: 03/29/18 Status: Discontinued enoxaparin 40 mg, 0.4 mL, Route: SUB-Q, Drug form: INJ, [id number], Dosing Weight 85.455, kg, Start date: 03/15/18 23:00:00 CDT, Stop date: 04/13/18 23:00:00 LOAN CLOSER Notes: (Same as: Lovenox) Start Date: 03/15/18 Stop Date: 03/29/18 Status: Discontinued glucagon 1 mg, Route: IM, Drug form: PDR/INJ, PRN, Dosing Weight 85.455, kg, PRN Blood Gl ucose Results, Start date: 03/15/18 22:18:00 CDT, Duration: 30 day, Stop date: 06/14/17 21:17:00 LOAN CLOSER Start Date: 03/15/18 Stop Date: 03/29/18 Status: Discontinued Haldol 2 mg, 0.4 mL, Route: IM, Drug form: INJ, ONCE, Dosing Weight 86.818, kg, Start d ate: 03/22/18 18:57:00 CDT, Stop date: 03/22/18 18:57:00 CDT Notes: (Same as: Haldol) Start Date: 03/22/18 Stop Date: 03/22/18 Status: Completed Haldol 2 mg, 0.4 mL, Route: IM, Drug form: INJ, ONCE, Dosing Weight 86.818, kg, Start d ate: 03/21/18 13:23:00 CDT, Stop date: 03/21/18 13:23:00 CDT Notes: (Same as: Haldol) Start Date: 03/21/18 Stop Date: 03/21/18 Status: Completed hydrochlorothiazide-valsartan 25 mg-160 mg oral tablet 1 tab, PO, Daily Start Date: 03/29/18 Stop Date: 03/29/18 Status: Discontinued hydromorphone 1 mg, Route: IVP, ONCE, Dosing Weight 85.455, kg, Priority: STAT, Start date: 20:51:00 CDT, Stop date: 03/15/18 20:51:00 CDT Start Date: 03/15/18 Stop Date: 03/15/18 Status: Completed ketOROLAC 15 mg/mL injectable solution 15 mg, 1 mL, Route: IVP, Drug form: INJ, Q6H, Dosing Weight 86.818, kg, PRN Pain Score 4-6, Start date: 03/25/18 7:55:00 CDT, Duration: 4 day, Stop date: 7:54:00 CDT Notes: (Same as:Toradol) IV bolus must be given >15 seconds. Give IM administration slowly and deeply into the muscle. Not for use > 4 days. Start Date: 03/25/18 Stop Date: 03/26/18 Status: Discontinued levothyroxine 50 microgram, 1 tab, Route: PO, Drug form: TAB, [id number], Dosing Weight 85.455, kg , Start date: 03/16/18 6:30:00 CDT, Duration: 30 day, Stop date: 04/14/18 6:30:0 0 LOAN CLOSER Notes: Take 1 hour before or 2 hours after meal; Enteral feeds may interefere wi th the absorption of this medication.(Same as:Levothroid, Synthroid) Start Date: 03/16/18 Stop Date: 03/29/18 Status: Discontinued lidocaine topical patch (5% film) 1 patch, Route: TOP, Daily, Drug form: FILM, Start date: 03/24/18 13:00:00 CDT, Duration: 1 doses or times, Stop date: 03/24/18 13:00:00 CDT Notes: Apply only once for up to 12 hours in [id number] period (12 hours on and 12 hours off).(Same as: Lidoderm)"Remove old patch before application of new patch" Start Date: 03/24/18 Stop Date: 03/24/18 Status: Completed Lidoderm 5% topical film (patch) 2 patch, TOP, Q24H, 0 Refill(s) Start Date: 03/29/18 Stop Date: 04/22/18 Status: Discontinued Lidoderm 5% topical film (patch) 2 patch, Route: TOP, Q24H, Drug form: FILM, Start date: 03/17/18 11:00:00 CDT, D uration: 30 day, Stop date: 04/15/18 11:00:00 LOAN CLOSER Notes: Apply only once for up to 12 hours in [id number] period (12 hours on and 12 hours off).(Same as: Lidoderm)"Remove old patch before application of new patch" Start Date: 03/17/18 Stop Date: 03/29/18 Status: Discontinued lisinopril 10 mg, 1 tab, Route: PO, Drug form: TAB, Daily, Dosing Weight 86.818, kg, Start date: 03/29/18 9:00:00 CDT, Duration: 30 day, Stop date: 04/27/18 9:00:00 LOAN CLOSER Notes: (Same as: Prinivil, Zestril) Start Date: 03/29/18 Stop Date: 03/29/18 Status: Discontinued lisinopril 10 mg oral tablet 10 mg=1 tab, PO, Daily, 0 Refill(s) Start Date: 03/29/18 Status: Ordered Lyrica 25 mg, Route: PO, Drug form: CAP, Q8H, Dosing Weight 86.818, kg, Start date: 0:00:00 CDT, Duration: 30 day, Stop date: 04/25/18 16:00:00 LOAN CLOSER Start Date: 03/27/18 Stop Date: 03/26/18 Status: Canceled Lyrica 25 mg, 1 cap, Route: PO, Drug form: CAP, Q8Hnow, Dosing Weight 86.818, kg, Prior ity: NOW, Start date: 03/26/18 19:17:00 CDT, Duration: 30 day, Stop date: 11:17:00 LOAN CLOSER Notes: (Same as: Lyrica) Start Date: 03/26/18 Stop Date: 03/27/18 Status: Discontinued melatonin 3 mg, 1 tab, Route: PO, Drug form: TAB, Bedtime, Dosing Weight 85.455, kg, PRN I nsomnia, Start date: 03/15/18 22:18:00 CDT, Duration: 30 day, Stop date: 8 22:17:00 LOAN CLOSER Notes: (Same as: Melatonin) Start Date: 03/15/18 Stop Date: 03/29/18 Status: Discontinued melatonin 3 mg oral tablet 3 mg=1 tab, PO, Bedtime, PRN Insomnia, 0 Refill(s) Start Date: 03/29/18 Stop Date: 04/22/18 Status: Discontinued meloxicam 7.5 mg oral tablet 7.5 mg=1 tab, PO, Daily Start Date: 03/29/18 Stop Date: 04/22/18 Status: Discontinued MiraLax 17 gm, Route: PO, Daily, Dosing Weight 86.818, kg, Start date: 03/21/18 9:00:00 CDT, Duration: 30 day, Stop date: 04/19/18 9:00:00 LOAN CLOSER Start Date: 03/21/18 Stop Date: 03/20/18 Status: Deleted naproxen 500 mg, 1 tab, Route: PO, Drug form: TAB, [id number], Dosing Weight 87.273, kg, Sta rt date: 03/17/18 11:00:00 CDT, Duration: 30 day, Stop date: 04/15/18 23:00:[address] Notes: (Same as: Naprosyn) Take with food. Start Date: 03/17/18 Stop Date: 03/20/18 Status: Discontinued NS (Bolus) IV 250 mL, 250 ml/hr, Infuse Over: 1 hr, Route: IV, 250, Drug form: INJ, ONCE, Prio rity: STAT, Dosing Weight 86.818 kg, Start date: 03/20/18 12:28:00 CDT, Stop richie e: 03/20/18 12:28:00 CDT Start Date: 03/20/18 Stop Date: 03/20/18 Status: Completed NS 1,000 mL 1,000 mL, Rate: 75 ml/hr, Infuse over: 13.3 hr, Route: IV, Dosing Weight 86.818 kg, Total Volume: 1,000, Start date: 03/21/18 18:54:00 CDT, Duration: 30 day, St op date: 04/20/18 18:53:00 LOAN CLOSER, 1.99, m2 Start Date: 03/21/18 Stop Date: 03/26/18 Status: Discontinued OLANZapine 10 mg intramuscular injection 2.5 mg, IM, Q8H, PRN Agitation, 0 Refill(s) Start Date: 03/29/18 Stop Date: 04/22/18 Status: Discontinued ondansetron 4 mg, 2 mL, Route: IVP, Drug form: INJ, Q8H, Dosing Weight 85.455, kg, PRN Nause a & Vomiting, Start date: 03/15/18 22:18:00 CDT, Duration: 30 day, Stop date: 04/14/18 22:17:00 LOAN CLOSER Notes: (Same as: Jeffry) MEDICATION WASTE Product Size: 4 mgProduct Was jackie: ___ mg Start Date: 03/15/18 Stop Date: 03/29/18 Status: Discontinued ondansetron 2 mg/mL injectable solution 4 mg=2 mL, IVP, Q8H, PRN Nausea & Vomiting, 0 Refill(s) Start Date: 03/29/18 Stop Date: 04/26/18 Status: Discontinued oxyCODONE 5 mg immediate release 5 mg, 1 tab, Route: PO, Drug form: TAB, Q4H, Dosing Weight 85.455, kg, PRN Pain Score 4-6, Start date: 03/15/18 22:29:00 CDT, Duration: 30 day, Stop date: 04/14 22:28:00 LOAN CLOSER Notes: (Same as: Roxicodone) Start Date: 03/15/18 Stop Date: 03/20/18 Status: Discontinued oxyCODONE 5 mg immediate release 5 mg, Route: PO, Drug form: TAB, Q4H, Dosing Weight 87.273, kg, PRN Pain Score 4 -6, Start date: 03/17/18 10:58:00 CDT, Duration: 30 day, Stop date: 04/16/18 10: 57:00 LOAN CLOSER Start Date: 03/17/18 Stop Date: 03/17/18 Status: Discontinued oxyCODONE 5 mg oral tablet 10 mg, 2 tab, Route: PO, Drug form: TAB, Q4H, Dosing Weight 87.273, kg, PRN Pain Score 7-10, Start date: 03/17/18 10:58:00 CDT, Duration: 30 day, Stop date: 10:57:00 LOAN CLOSER Notes: (Same as: Roxicodone) Start Date: 03/17/18 Stop Date: 03/20/18 Status: Discontinued oxyCODONE 5 mg/5 mL oral solution 2.5 mg, 2.5 mL, Route: PO, Drug form: LIQ, Q6H, Dosing Weight 86.818, kg, PRN Pa in Score 7-10, Start date: 03/26/18 14:27:00 CDT, Duration: 30 day, Stop date: 06/25/17 14:26:00 LOAN CLOSER Notes: (Same as: 'Roxicodone) Start Date: 03/26/18 Stop Date: 03/29/18 Status: Discontinued oxyCODONE 5 mg/5 mL oral solution 2.5 mg=2.5 mL, PO, Q6H, PRN Pain Score 7-10, 0 Refill(s) Start Date: 03/29/18 Stop Date: 04/22/18 Status: Discontinued polyethylene glycol 3350 17 gm, 1 pkt, Route: PO, Drug form: PWDR, Daily, Dosing Weight 87.273, kg, Start date: 03/18/18 9:00:00 CDT, Duration: 30 day, Stop date: 04/16/18 9:00:00 LOAN CLOSER Notes: Dissolve in 8 oz of water or juice.(Same as: Miralax) Start Date: 03/18/18 Stop Date: 03/29/18 Status: Discontinued pravastatin 40 mg, 2 tab, Route: PO, Drug form: TAB, Bedtime, Dosing Weight 85.455, kg, Star t date: 03/16/18 21:00:00 CDT, Duration: 30 day, Stop date: 04/14/18 21:00:00 CS T Notes: (Same as: Pravachol) Start Date: 03/16/18 Stop Date: 03/29/18 Status: Discontinued pravastatin 20 mg oral tablet 40 mg=2 tab, PO, Bedtime, 0 Refill(s) Start Date: 03/29/18 Stop Date: 03/29/18 Status: Discontinued remove patch 2 patch, Route: TOP, Q24H, Drug form: ERFILM, Start date: 03/17/18 23:00:00 CDT, Duration: 30 day, Stop date: 04/15/18 23:00:00 LOAN CLOSER Notes: Remove patch 12 hours after application each day. Start Date: 03/17/18 Stop Date: 03/29/18 Status: Discontinued Risperdal 0.5 mg, 1 tab, Route: PO, Drug form: TAB, QPM, Dosing Weight 85.455, kg, Start d ate: 03/16/18 17:00:00 CDT, Duration: 30 day, Stop date: 04/14/18 17:00:00 LOAN CLOSER Notes: (Same as: Risperdal) Start Date: 03/16/18 Stop Date: 03/21/18 Status: Discontinued risperiDONE 1 mg, 1 tab, Route: PO, Drug form: TAB, ONCE, Dosing Weight 86.818, kg, Start da te: 03/21/18 13:12:00 CDT, Stop date: 03/21/18 13:12:00 CDT Notes: (Same as: Risperdal) Start Date: 03/21/18 Stop Date: 03/21/18 Status: Completed senna 17.2 mg, 2 tab, Route: PO, Drug Form: TAB, Dosing Weight 86.818, kg, Q12H, Start date: 03/20/18 21:00:00 CDT, Duration: 30 day, Stop date: 04/19/18 9:00:00 LOAN CLOSER Notes: (Same as: Senokot) Start Date: 03/20/18 Stop Date: 03/29/18 Status: Discontinued senna 17.2 mg, 2 tab, Route: PO, Drug Form: TAB, Dosing Weight 85.455, kg, Bedtime, St art date: 03/16/18 21:00:00 CDT, Duration: 30 day, Stop date: 04/14/18 21:00:00 LOAN CLOSER Notes: (Same as: Senokot) Start Date: 03/16/18 Stop Date: 03/20/18 Status: Discontinued senna 8.6 mg oral tablet 17.2 mg=2 tab, PO, Q12H, 0 Refill(s) Start Date: 03/29/18 Stop Date: 03/29/18 Status: Discontinued sterile water 2.1 mL, Route: MISC, Drug Form: INJ, Q8H, PRN Other -See Comment, Start date: 15:13:00 CDT, Duration: 30 day, Stop date: 04/20/18 15:12:00 LOAN CLOSER Notes: For reconstitution of drugs only Start Date: 03/21/18 Stop Date: 03/29/18 Status: Discontinued tramadol 50 mg, 1 tab, Route: PO, Drug form: TAB, Q12H, Dosing Weight 85.455, kg, Start d ate: 03/20/18 9:00:00 CDT, Duration: 30 day, Stop date: 04/18/18 21:00:00 LOAN CLOSER Notes: Not to exceed 400mg/day. (Same As: Ultram) Start Date: 03/20/18 Stop Date: 03/20/18 Status: Discontinued tramadol 100 mg, 2 tab, Route: PO, Drug form: TAB, Q6H, Dosing Weight 85.455, kg, Start d ate: 03/16/18 0:00:00 CDT, Duration: 30 day, Stop date: 04/14/18 18:00:00 LOAN CLOSER Notes: Not to exceed 400mg/day. (Same As: Ultram) Start Date: 03/16/18 Stop Date: 03/19/18 Status: Discontinued tramadol 50 mg, Route: PO, Drug form: TAB, Q12H, Dosing Weight 85.455, kg, Start date: 21:00:00 CDT, Duration: 30 day, Stop date: 04/19/18 9:00:00 LOAN CLOSER Start Date: 03/20/18 Stop Date: 03/20/18 Status: Canceled tramadol 50 mg oral tablet 50 mg, 1 tab, Route: PO, Drug form: TAB, Q6H, Dosing Weight 86.818, kg, PRN Pain Score 4-6, Start date: 03/20/18 15:29:00 CDT, Duration: 30 day, Stop date: 03/30 07/16 15:28:00 LOAN CLOSER Notes: Not to exceed 400mg/day. (Same As: Ultram) Start Date: 03/20/18 Stop Date: 03/25/18 Status: Discontinued tramadol 50 mg oral tablet 100 mg, Route: PO, Drug form: TAB, Q6H, Dosing Weight 86.818, kg, PRN Pain Score 4-6, Start date: 03/20/18 14:21:00 CDT, Duration: 30 day, Stop date: 04/19/18 1 4:20:00 LOAN CLOSER Start Date: 03/20/18 Stop Date: 03/20/18 Status: Discontinued Ultram 50 mg oral tablet 50 mg, 1 tab, Route: PO, Drug form: TAB, Q4H, Dosing Weight 86.818, kg, PRN Pain Score 6-10, Start date: 03/26/18 9:42:00 CDT, Duration: 30 day, Stop date: 03/30 01/13 9:41:00 LOAN CLOSER Start Date: 03/26/18 Stop Date: 03/26/18 Status: Discontinued Visipaque 320mg/ml 100 mL, Route: IVP, Drug Form: SOLN, Dosing Weight 85.455, kg, ONCALL, STAT, Sta rt date: 03/15/18 17:54:00 CDT, Duration: 1 doses or times, Dose=2.2ml/kg, Max inoi=503dp -- "To be infused by Radiology Staff ONLY" Start Date: 03/15/18 Stop Date: 03/15/18 Status: Discontinued ZyPREXA 2.5 mg, 1 tab, Route: PO, Drug form: TAB, Bedtime, Dosing Weight 86.818, kg, Sta rt date: 03/28/18 21:00:00 CDT, Duration: 30 day, Stop date: 04/26/18 21:00:[address] Notes: (Same as: ZyPREXA) Start Date: 03/28/18 Stop Date: 03/29/18 Status: Discontinued ZyPREXA 2.5 mg, 1 tab, Route: PO, Drug form: TAB, Q12H, Dosing Weight 86.818, kg, Start date: 03/21/18 21:00:00 CDT, Duration: 30 day, Stop date: 04/20/18 9:00:00 LOAN CLOSER Notes: (Same as: ZyPREXA) Start Date: 03/21/18 Stop Date: 03/28/18 Status: Discontinued ZyPREXA 2.5 mg, Route: IM, Drug form: INJ, Q8H, Dosing Weight 86.818, kg, PRN Agitation, Start date: 03/21/18 14:36:00 CDT, Duration: 30 day, Stop date: 04/20/18 14:35: 00 LOAN CLOSER Notes: (Same As: ZyPREXA IM). Reconstitute with 2.1 ml sterile water for inject ion; use within 1 hour after reconstitution. For IM use only; do not administer IV or SUB-Q. Start Date: 03/21/18 Stop Date: 03/29/18 Status: Discontinued Results 1 2 3 Most recent to oldest [Reference Range]: 5.3 K/CMM (03/29/18 9:45 AM) 4.6 K/CMM (03/24/18 5:18 AM) 3.1 K/CMM (03/22/18 9:38 PM) Neutrophils # [1.5-8.1 K/CMM] 2.4 K/CMM (03/29/18 9:45 AM) 2.7 K/CMM (03/24/18 5:18 AM) 1.5 K/CMM (03/22/18 9:38 PM) Lymphocytes # [1.0-5.5 K/CMM] 0.7 K/CMM (03/29/18 9:45 AM) 0.7 K/CMM (03/24/18 5:18 AM) 0.6 K/CMM (03/22/18 9:38 PM) Monocytes # [0.0-0.8 K/CMM] 0.3 K/CMM (03/29/18 9:45 AM) 0.3 K/CMM (03/24/18 5:18 AM) 0.1 K/CMM (03/22/18 9:38 PM) Eosinophils # [0.0-0.5 K/CMM] 0.1 K/CMM (03/29/18 9:45 AM) 0.1 K/CMM (03/15/18 6:10 PM) Basophils # [0.0-0.2 K/CMM] 0.3 mg/dL (03/25/18 6:13 AM) 0.3 mg/dL (03/24/18 5:18 AM) Bili Indirect [0.0-1.0 mg/dL] 76 mL/min/1.73m2 1 *NA* (03/29/18 9:45 AM) 59 mL/min/1.73m2 2 *NA* (03/24/18 5:18 AM) 63 mL/min/1.73m2 3 *NA* (03/22/18 9:38 PM) eGFR 0.9 (03/29/18 9:45 AM) 0.9 (03/25/18 6:13 AM) 1.1 (03/24/18 5:18 AM) A/G Ratio [0.7-1.6] 2.9 g/dL *LOW* (03/29/18 9:45 AM) 2.3 g/dL *LOW* (03/25/18 6:13 AM) 3.0 g/dL *LOW* (03/24/18:18 AM) Albumin Lvl [3.5-5.0 g/dL] 110 unit/L (03/29/18 9:45 AM) 122 unit/L (03/25/18 6:13 AM) 152 unit/L *HI* (03/24/18:18 AM) Alk Phos [39-136 unit/L] 37 unit/L (03/29/18 9:45 AM) 77 unit/L *HI* (03/25/18 6:13 AM) 137 unit/L *HI* (03/24/18 5:18 AM) ALT [0-65 unit/L] 37.0 uMol/L (03/22/18 9:38 PM) Ammonia [<=45.0 uMol/L] 11.7 mEq/L (03/29/18 9:45 AM) 15.7 mEq/L (03/24/18 5:18 AM) 13.7 mEq/L (03/22/18 9:38 PM) AGAP [10.0-20.0 mEq/L] 20 unit/L (03/29/18 9:45 AM) 28 unit/L (03/25/18 6:13 AM) 70 unit/L *HI* (03/24/18 5:18 AM) AST [0-37 unit/L] 17 (03/29/18 9:45 AM) 16 (03/22/18 9:38 PM) 23 (03/20/18 8:58 PM) B/C Ratio [6-25] 0.8 % (03/29/18 9:45 AM) 0.4 % (03/24/18 5:18 AM) 0.4 % (03/22/18 9:38 PM) Basophils [0.0-1.0 %] 13 mg/dL (03/29/18 9:45 AM) 15 mg/dL (03/24/18 5:18 AM) 15 mg/dL (03/22/18 9:38 PM) BUN [7-22 mg/dL] 9.3 mg/dL (03/29/18 9:45 AM) 9.7 mg/dL (03/24/18 5:18 AM) 10.0 mg/dL (03/22/18 9:38 PM) Calcium Lvl [8.5-10.5 mg/dL] 107 mEq/L (03/29/18 9:45 AM) 111 mEq/L *HI* (03/24/18:18 AM) 110 mEq/L *HI* (03/22/18 9:38 PM) Chloride Lvl [95-109 mEq/L] 25 mEq/L (03/29/18 9:45 AM) 23 mEq/L *LOW* (03/24/18:18 AM) 25 mEq/L (03/22/18 9:38 PM) CO2 [24-32 mEq/L] 0.78 mg/dL (03/29/18 9:45 AM) 0.95 mg/dL (03/24/18:18 AM) 0.91 mg/dL (03/22/18 9:38 PM) Creatinine Lvl [0.50-1.40 mg/dL] 0.2 mg/dL (03/25/18 6:13 AM) 0.2 mg/dL (03/24/18:18 AM) Bili Direct [0.0-0.3 mg/dL] 3.2 % (03/29/18 9:45 AM) 3.3 % (03/24/18 5:18 AM) 2.1 % (03/22/18 9:38 PM) Eosinophils [0.0-4.0 %] 76.7 ng/mL (03/22/18 9:38 PM) Folate Lvl [>=3.0 ng/mL] 3.1 g/dL (03/29/18 9:45 AM) 2.5 g/dL *LOW* (03/25/18 6:13 AM) 2.8 g/dL (03/24/18:18 AM) Globulin [2.7-4.2 g/dL] 99 mg/dL (03/29/18 9:45 AM) 104 mg/dL *HI* (03/24/18:18 AM) 123 mg/dL *HI* (03/22/18 9:38 PM) Glucose Lvl [70-99 mg/dL] 37.6 % (03/29/18 9:45 AM) 39.6 % (03/24/18:18 AM) 37.2 % (03/22/18 9:38 PM) Hct [36.0-48.0 %] 12.9 g/dL (03/29/18:45 AM) 13.4 g/dL (03/24/18:18 AM) 12.5 g/dL (03/22/18 9:38 PM) Hgb [12.0-16.0 g/dL] 0.90 (03/15/18 6:10 PM) INR [0.85-1.17] 3.7 mEq/L (03/29/18:45 AM) 3.7 mEq/L (03/24/18:18 AM) 3.7 mEq/L (03/22/18:38 PM) Potassium Lvl [3.5-5.1 mEq/L] 80 unit/L (03/15/18 6:10 PM) Lipase Lvl [73-393 unit/L] 27.6 % (03/29/18:45 AM) 32.2 % (03/24/18: AM) 27.7 % (03/22/18:38 PM) Lymphocytes [20.0-40.0 %] 32.8 pg *HI* (03/29/18:45 AM) 32.7 pg *HI* (03/24/18:18 AM) 32.6 pg *HI* (03/22/18:38 PM) MCH [27.0-31.0 pg] 34.4 g/dL (03/29/18 9:45 AM) 33.9 g/dL (03/24/18:18 AM) 33.6 g/dL (03/22/18:38 PM) MCHC [32.0-36.0 g/dL] 95.5 fL (03/29/18 9:45 AM) 96.5 fL (03/24/18:18 AM) 97.0 fL (03/22/18:38 PM) MCV [80.0-98.0 fL] 1.4 mg/dL *LOW* (03/29/18 9:45 AM) Magnesium Lvl [1.8-2.4 mg/dL] 7.6 % (03/29/18 9:45 AM) 8.6 % (03/24/18 5:18 AM) 11.2 % (03/22/18 9:38 PM) Monocytes [2.0-12.0 %] 7.6 fL (03/29/18 9:45 AM) 8.7 fL (03/24/18:18 AM) 8.9 fL (03/22/18 9:38 PM) MPV [7.4-10.4 fL] 140 mEq/L (03/29/18 9:45 AM) 146 mEq/L *HI* (03/24/18:18 AM) 145 mEq/L (03/22/18 9:38 PM) Sodium Lvl [135-145 mEq/L] 3.1 mg/dL (03/29/18 9:45 AM) Phosphorus [2.5-4.5 mg/dL] 366 K/CMM (03/29/18 9:45 AM) 248 K/CMM (03/24/18:18 AM) 246 K/CMM (03/22/18 9:38 PM) Platelet [133-450 K/CMM] 60.8 % (03/29/18 9:45 AM) 55.5 % (03/24/18 5:18 AM) 58.6 % (03/22/18 9:38 PM) Segs [45.0-75.0 %] 6.0 g/dL *LOW* (03/29/18 9:45 AM) 4.8 g/dL *LOW* (03/25/18 6:13 AM) 5.8 g/dL *LOW* (03/24/18 5:18 AM) Total Protein [6.4-8.4 g/dL] 12.1 seconds (03/15/18 6:10 PM) PT [12.0-14.7 seconds] 53.0 pg/mL (03/16/18 8:43 AM) PTH Intact [18.4-80.1 pg/mL] 23.6 seconds (03/15/18 6:10 PM) PTT [22.9-35.8 seconds] 3.94 M/CMM *LOW* (03/29/18 9:45 AM) 4.11 M/CMM *LOW* (03/24/18 5:18 AM) 3.83 M/CMM *LOW* (03/22/18 9:38 PM) RBC [4.20-5.40 M/CMM] 14.2 % (03/29/18 9:45 AM) 14.1 % (03/24/18 5:18 AM) 14.3 % (03/22/18 9:38 PM) RDW [11.5-14.5 %] 0.8 mg/dL (03/29/18 9:45 AM) 0.5 mg/dL (03/25/18 6:13 AM) 0.5 mg/dL (03/24/18 5:18 AM) Bili Total [0.2-1.3 mg/dL] <0.02 ng/mL (03/15/18 6:10 PM) Troponin-I [0.00-0.40 ng/mL] Occasional /HPF *NA* (03/29/18 12:47 PM) UA Amorph Shira [None Seen /HPF] Occasional /HPF *NA* (03/20/18 3:56 PM) UA Bacteria [None Seen /HPF] Negative *NA* (03/29/18 12:47 PM) Negative *NA* (03/22/18 9:38 PM) Negative *NA* (03/20/18 3:56 PM) UA Bili [Negative] Negative (03/29/18 12:47 PM) Negative (03/22/18 9:38 PM) Negative (03/20/18 3:56 PM) UA Blood [Negative] Yellow *NA* (03/29/18 12:47 PM) Yellow *NA* (03/22/18 9:38 PM) Yellow *NA* (03/20/18 3:56 PM) UA Color [Yellow] Negative mg/dL *NA* (03/29/18 12:47 PM) Negative mg/dL *NA* (03/22/18 9:38 PM) Negative mg/dL *NA* (03/20/18 3:56 PM) UA Glucose [Negative mg/dL] 5 /LPF *HI* (03/29/18 12:47 PM) 3 /LPF *HI* (03/20/18 4:11 AM) UA Hyal Cast [0-2 /LPF] Negative mg/dL *NA* (03/29/18 12:47 PM) Negative mg/dL *NA* (03/22/18 9:38 PM) Negative mg/dL *NA* (03/20/18 3:56 PM) UA Ketones [Negative mg/dL] Negative (03/29/18 12:47 PM) Negative (03/22/18 9:38 PM) Trace *ABN* (03/20/18 3:56 PM) UA Leuk Est [Negative] Few /LPF *NA* (03/29/18 12:47 PM) Few /LPF *NA* (03/22/18 9:38 PM) Few /LPF *NA* (03/20/18 3:56 PM) UA Mucus [None Seen /LPF] Negative (03/29/18 12:47 PM) Negative (03/22/18 9:38 PM) Negative (03/20/18 3:56 PM) UA Nitrite [Negative] 7.5 (03/29/18 12:47 PM) 7.5 (03/22/18 9:38 PM) 6.0 (03/20/18 3:56 PM) UA pH [5.0-8.0] 10 mg/dL *ABN* (03/29/18 12:47 PM) Negative mg/dL (03/22/18 9:38 PM) Negative mg/dL (03/20/18 3:56 PM) UA Protein [Negative mg/dL] <1 /HPF (03/29/18 12:47 PM) <1 /HPF (03/20/18 3:56 PM) 1 /HPF (03/20/18 4:11 AM) UA RBC [0-2 /HPF] RARE *NA* (03/29/18 12:47 PM) UA Renal Epi [<=0] 1.015 (03/29/18 12:47 PM) 1.009 (03/22/18 9:38 PM) 1.019 (03/20/18 3:56 PM) UA Spec Grav [<=1.030] Few /LPF *NA* (03/29/18 12:47 PM) UA Sq Epi [Few /LPF] None Seen *NA* (03/22/18 9:38 PM) None Seen *NA* (03/20/18 3:56 PM) UA Sq Epi Slight *ABN* (03/29/18 12:47 PM) Clear (03/22/18 9:38 PM) Clear (03/20/18 3:56 PM) UA Turbidity [Clear] <=1.0 mg/dL *NA* (03/29/18 12:47 PM) <=1.0 mg/dL *NA* (03/22/18 9:38 PM) <=1.0 mg/dL *NA* (03/20/18 3:56 PM) UA Urobilinogen [0.1-1.0 mg/dL] <1 /HPF (03/29/18 12:47 PM) 3 /HPF (03/20/18 3:56 PM) 1 /HPF (03/20/18 4:11 AM) UA WBC [0-5 /HPF] 1523 pg/mL *HI* (03/22/18 9:38 PM) Vitamin B12 Lvl [254-1320 pg/mL] 30.8 ng/mL (03/16/18 8:43 AM) Vitamin D, 25-OH, Total [30.0-100.0 ng/mL] 8.8 K/CMM (03/29/18 9:45 AM) 8.3 K/CMM (03/24/18 5:18 AM) 5.3 K/CMM (03/22/18 9:38 PM) WBC [3.7-10.4 K/CMM] 1.8 mmol/L (03/15/18 6:10 PM) Lactic Acid WB [0.5-2.2 mmol/L] 1Result Comment: The eGFR is calculated using [...] be mul tiplied by the estimated BMI. Microbiology Reports TEST: Culture: Urine STATUS: Auth (Verified) BODY SITE: SOURCE: Urine, Clean Catch COLLECTED DATE/TIME: 03/21/18 2:32 PM FINAL REPORT Specimen contains 3 or more potential pathogens; recommend correlation with urinalysis; if catheterized specimen recommend removal and recollection. If clinical situation warrants please call the laboratory for further testing. [place] [facility] [phone]. Immunizations Given and Recorded Vaccine Date Status Refusal Reason influenza virus vaccine, inactivated 03/29/18 Given pneumococcal 13-valent vaccine 03/29/18 Given pneumococcal 23-valent vaccine 11/12/10 Given Procedures Procedure Date Related Diagnosis Body Site Status Anastomosis of transverse colon to rectum Completed Hysterectomy Completed Operation Completed Operation Completed Tonsillectomy Completed Social History Social History Type Response Substance Abuse Use: None. Alcohol Past, Previous treatment: None. Smoking Status Former smoker; Exposure to Tobacco Smoke None; Cigarette Smoking Last 365 Days No; Reg Smoking Cessation Counseling No entered on: 04/20/18 Assessment and Plan Extracted from: Title: Psychiatry Consult Author: Justin Farrell MD Date: 03/29/18 PSYCHIATRY CONSULT PROGRESS NOTE Chief Complaint: "doing fine" Patient denies acute psychiatric complaint. Endorses subjectively clearer mentation. Denies hallucinations. Answers questions in linear fashion. Review of Systems: Constitutional - Denies Musculoskeletal - Hip discomfort, chronic Psychiatric - See above Medications (24) Active Scheduled Meds (14): 03/22/18 DULoxetine 60 mg PO Q12H 03/28/18 OLANZapine (ZyPREXA) 2.5 mg PO Bedtime 03/22/18 acetaminophen 650 mg PO Q8H 03/16/18 aspirin (aspirin 81 mg tablet, chewable) 81 mg PO Daily 03/16/18 calcium-vitamin D (calcium (as carbonate)-vitamin D 500 mg-400 intl units oral tablet) 1 tab PO BID 03/16/18 docusate 100 mg PO BID 03/15/18 enoxaparin 40 mg SUB-Q [id number] 03/16/18 levothyroxine 50 microgram PO Q630AM 03/17/18 lidocaine topical (Lidoderm 5% topical film (patch)) 2 patch TOP Q24H 03/29/18 lisinopril 10 mg PO Daily 03/18/18 polyethylene glycol 3350 17 gm PO Daily 03/16/18 pravastatin 40 mg PO Bedtime 03/17/18 remove patch 2 patch TOP Q24H 03/20/18 senna 17.2 mg PO Q12H Unscheduled Meds (2): 03/16/18 influenza virus vaccine, inactivated (influenza virus vaccine, inactivated high-dose preservative-free intramuscular suspension) 0.5 mL IM ONCALL 03/16/18 pneumococcal 13-valent vaccine 0.5 mL IM ONCALL PRN Meds (8): 03/15/18 Dextrose 50% in Water IV (Dextrose 50% Syringe) 12.5 gm IVP PRN 03/15/18 Dextrose 50% in Water IV (Dextrose 50% Syringe) 25 gm IVP PRN 03/21/18 OLANZapine (ZyPREXA) 2.5 mg IM Q8H 03/15/18 glucagon 1 mg IM PRN 03/15/18 melatonin 3 mg PO Bedtime 03/15/18 ondansetron 4 mg IVP Q8H 03/26/18 oxyCODONE (oxyCODONE 5 mg/5 mL oral solution) 2.5 mg PO Q6H 03/21/18 sterile water 2.1 mL MISC Q8H One Time Meds: None Continuous Infusions: None Mental Status Examination: General - Engageable, good eye contact Musculoskeletal - No gross abnormal movements Speech - Appropriate rate/tone/volume Thought Process - Linear Thought Content - No delusions, no suicidal or homicidal ideations Perception - No auditory/visual hallucinations Mood/Affect - "fine"/euthymic Insight/Judgment - improved Cognitive Examination: Orientation - Alert, no gross disorientation Attention/concentration - No gross deficit Memory - No gross deficit Fund of knowledge - Appropriate Abstracting ability - Intact grossly VitalsTmp(F)[id number] 03/29 08:0098.154569/128538--- 03/29 04:2497.053898/76--94--- 03/28 23:2797.098070/72--92--- 03/28 19:5398.405958/74--91--- 03/28 16:0098.810900/753906--- 24 Hr Tmax: 98.2F (36.78c) at 03/28 19:53Vital Signs are the last 5 in the past 48 hours. 24hr Labs 03/29 0945 Sodium Rvy277 Potassium Lvl3.7 Chloride Emf301 CO225 AGAP11.7 Glucose Lvl99 Creatinine Lvl0.78 BUN13 B/C Ratio17 Total Protein6.0 L Albumin Lvl2.9 L Globulin3.1 A/G Ratio0.9 Calcium Lvl9.3 ALT37 AST20 Alk Aamz003 Bili Total0.8 eGFR76 Magnesium Lvl1.4 L Phosphorus3.1 WBC8.8 RBC3.94 L Hgb12.9 Hct37.6 MCV95.5 MCH32.8 H MCHC34.4 RDW14.2 Bziqxabb428 MPV7.6 Segs60.8 Monocytes7.6 Gcrpgrgmhea27.6 Eosinophils3.2 Basophils0.8 Segs-Bands #5.3 Lymphocytes #2.4 Monocytes #0.7 Eosinophils #0.3 Basophils #0.1 Assessment: Major depressive disorder, recurrent, severe with psychotic features; delirium, multifactorial Recommendations: 1. Discontinue scheduled Zyprexa. Delirium/agitation appears largely cleared. 2. Continue Cymbalta 60 mg BID. Dose at 0900 and 1500 hours to avoid nighttime activation. 3. Continue Zyprexa 2.5 mg PO or IM [id number] PRN nonredirectable agitation. Discontinue if no longer needed. 4. Unclear whether patient was taking Risperdal 0.5 mg QHS at home--reconcilliation says so, but no recent prescription filled per pharmacy history. No recommendation to restart Risperdal unless confirmed as a home medication, in which case it may be restarted at home dose. 5. No other recommendations at this time. Reconsult if needed. Thank you for allowing the opportunity to participate in this patient's care. Please call with any questions. Justin Farrell M.D. [id number] Extracted from: Title: History and Physical Author: Vamshi Rojas MD Date: 03/15/18 1.Fracture of iliac crest Subacute, likely nonoperative, current plan is for PT and OTwith final decision on operative therapy byorthopedic surgery and the more 2.HLD - Hyperlipidemia Continue with home statin 3.HTN - Hypertension Hold home lisinopril for now, resume as needed for hypertension 4.Acute pain due to trauma Initiated oral Multimodal analgesia 5.Anxiety Continue with home Risperdal Lovenox Pending clearance with PT and OT and thereafter home versus placement Crystal [phone]
--- OUTSIDE RECORDS SUMMARY | 2018-11-07 21:01 | XMS REPORT | Summary of Care ---
Author Organization Unknown Address Unknown Phone Unavailable Encounter HQ Lucrecia(JOSH) [id number] Date(s): 07/11/14 - 07/11/14 [facility] [address] [place] Discharge Disposition: Home Physician Attending: Sangita Horton MD Physician Admitting: Sangita Horton MD Physician_Referring: Sangita Horton MD Reason for Visit 564.00 V76.51 789.09 Vital Signs 1 2 3 Most recent to oldest [Reference Range]: 160.02 cm (07/07/14 8:26 AM) Height 98 DegF (07/07/14 8:30 AM) Temperature Oral [96.4-99.1 DegF] 105 mmHg (07/11/14 9:15 AM) 110 mmHg (07/11/14 9:00 AM) 112 mmHg (07/11/14 8:49 AM) Systolic Blood Pressure [90-140 mmHg] 75 mmHg (07/11/14 9:15 AM) 70 mmHg (07/11/14 9:00 AM) 68 mmHg (07/11/14 8:49 AM) Diastolic Blood Pressure [60-90 mmHg] 16 BRMIN (07/11/14 9:15 AM) 16 BRMIN (07/11/14 9:00 AM) 15 BRMIN (07/11/14 8:49 AM) Respiratory Rate [14-20 BRMIN] 72 bpm (07/07/14 8:30 AM) Peripheral Pulse Rate [60-100 bpm] 81.818 kg (07/07/14 8:26 AM) Weight 31.95 m2 (07/07/14 8:26 AM) Body Mass Index Problem List Condition [...] Substance Reaction Severity Status NKDA Active Medications cyclobenzaprine 10 mg oral tablet 10 mg=1 tab, PO, Daily, 0 Refill(s) Start Date: 07/07/14 Status: Ordered DULoxetine 60 mg oral delayed release capsule 60 mg=1 cap, PO, Daily, # 30 cap, 0 Refill(s) Start Date: 07/07/14 Status: Ordered flumazenil 0.2 mg, 2 mL, Route: IVP, Drug form: INJ, PRN, Dosing Weight 81.818, kg, PRN Oth er -See Comment, Start date: 07/11/14 8:56:00, Duration: 1 doses or times, Stop date: Limited # of times Notes: (Same as: Romazicon) Start Date: 07/11/14 Stop Date: 07/11/14 Status: Discontinued flumazenil 0.1 mg, 1 mL, Route: IVP, Drug form: INJ, Q5Min, Dosing Weight 81.818, kg, PRN O ther -See Comment, Start date: 07/11/14 8:56:00, Duration: 30 day, Stop date: 9:55:00 Notes: (Same as: Romazicon) Start Date: 07/11/14 Stop Date: 07/11/14 Status: Discontinued gabapentin 300 mg oral capsule 300 mg=1 cap, PO, Daily, 0 Refill(s) Start Date: 07/07/14 Status: Ordered naloxone 0.1 mg, 0.25 mL, Route: IVP, Drug form: INJ, Q2MIN, Dosing Weight 81.818, kg, ND N Narcotic Reversal, Start date: 07/11/14 8:56:00, Duration: 4 doses or times, S top date: Limited # of times Notes: Same as Narcan Start Date: 07/11/14 Stop Date: 07/11/14 Status: Discontinued pravastatin 40 mg oral tablet 40 mg=1 tab, PO, Bedtime, # 30 tab, 0 Refill(s) Start Date: 07/07/14 Status: Ordered Sodium Chloride 0.9% IV 500 mL 500 mL, Rate: 25 ml/hr, Infuse over: 20 hr, Route: IV, Dosing Weight 81.818 kg, Total Volume: 500, Start date: 07/11/14 7:40:00, Duration: 30 day, Stop date: 7:39:00 Start Date: 07/11/14 Stop Date: 07/11/14 Status: Discontinued Results ELECTROLYTES Most recent to 1 oldest [Reference Range]: Sodium Lvl [135-145 138 mEq/L mEq/L] (07/07/14 8:28 AM) Potassium Lvl 4.0 mEq/L [3.5-5.1 mEq/L] (07/07/14 8:28 AM) Chloride Lvl [95-109 103 mEq/L mEq/L] (07/07/14 8:28 AM) CO2 [24-32 mEq/L] 27 mEq/L (07/07/14 8:28 AM) AGAP [10.0-20.0 12.0 mEq/L mEq/L] (07/07/14 8:28 AM) CHEM PANEL Most recent to 1 oldest [Reference Range]: Creatinine Lvl 1.3 mg/dL [0.5-1.4 mg/dL] (07/07/14 8:28 AM) eGFR 41 mL/min/1.73m2 1 *NA* (07/07/14 8:28 AM) BUN [7-22 mg/dL] 16 mg/dL (07/07/14 8:28 AM) Glucose Lvl [70-99 108 mg/dL 2 mg/dL] *HI* (07/07/14 8:28 AM) Calcium Lvl 9.2 mg/dL [8.5-10.5 mg/dL] (07/07/14 8:28 AM) 1Result Comment: The eGFR is calculated [...] values reflect the clinical guidelines of the [place] [employer]. Medications Administered During Your Visit No data available for this section Immunizations Vaccine Date Refusal Reason pneumococcal 23-valent vaccine 11/12/10 Procedures Procedure Type Body Site Date of Procedure Related Diagnosis Hysterectomy Operation Operation Tonsillectomy Social History Social History Type Response Substance Abuse Use: None Alcohol Use: Past, Previous treatment: None Smoking Status Never smoker, Exposure to Tobacco Smoke None, Cigarette Smoking Last 365 Days No, Reg Smoking Cessation Counseling No
--- OUTSIDE RECORDS SUMMARY | 2018-11-07 21:01 | XMS REPORT | Summary of Care ---
Author Author [facility] Organization [facility] Address Unknown Phone Unavailable Encounter HQ Juan_tenisha(FIN) [id number] Date(s): 12/27/14 - 12/27/14 [facility] [address] [place] [address]- Discharge Disposition: Home Attending Physician: Ellis Amor MD Referring Physician: Ellis Amor MD Vital Signs No data available for [...]
--- OUTSIDE RECORDS SUMMARY | 2018-11-07 21:01 | XMS REPORT | Summary of Care ---
Author Author [facility] Organization [facility] Address Unknown Phone Unavailable Encounter HQ Juan_tenisha(FIN) [id number] Date(s): 12/23/14 - 12/23/14 [facility] [address] [place] [address]- [phone] Discharge Disposition: Home Attending Physician: Ellis Amor [...]
--- OUTSIDE RECORDS SUMMARY | 2018-11-07 21:02 | XMS REPORT | Summary of Care ---
Author Author Faviola Swan Unknown Address Unknown Phone Unavailable Care Team Providers Care Cp Bleacher Operator Name Role Phone JOSE RAFAEL MORAES N.P. Unavailable Unavailable DANIEL BONE M.D. Unavailable Unavailable Unavailable Unavailable Functional Status Name Dates Details Functional status health issues are not documented Status: Name Dates Details Cognitive status health issues are not documented Status: Problems Name Dates Details Bilateral knee pain (719.46, M25.561) Status: Active Lower back pain (724.2, M54.5) Status: Active Sacroiliitis (720.2, M46.1) Status: Active Arthritis of both knees (716.96, M17.0) Status: Active Medications Name Dates Details Allopurinol 300 MG Oral Tablet R.N. Active DULoxetine HCl - 60 MG Oral Capsule Delayed Release Particles * Refills: 0 R.N. Active Valsartan-Hydrochlorothiazide 80-12.5 MG Oral Tablet * Refills: 0 R.N. Active Lipitor 10 MG Oral Tablet * Refills: 0 R.N. Active Synthroid 50 MCG Oral Tablet * Refills: 0 R.N. Active Voltaren 1 % GEL * Refills: 0 R.N. Active Meloxicam 7.5 MG Oral Tablet TAKE 1 TABLET DAILY WITH FOOD. * Quantity: 30 Refills: 1 JOSE RAFAEL MORAES N.P. * Start : 29-Sep-2017 Active OrthoVisc 30 MG/2ML Intra-articular Solution Prefilled Syringe INJECT ONE PRE-FILLED SYRINGE INTRA-ARTICULARLY INTO BILATERAL KNEES WEEKLY FOR THREE WEEKS. * Quantity: 6 Refills: 0 DANIEL BONE M.D. * Start : 04-Oct-2017 Active 2 ML Syringe Allergies and Adverse Reactions Name Dates Details No Known Drug Allergies (Allergy) Status: Active Past Medical History Name Dates Details History of arthritis (V13.4, Z87.39) Status: Resolved History of back pain (V13.59, Z87.39) Status: Resolved History of depression (V11.8, Z86.59) Status: Resolved History of essential hypertension (V12.59, Z86.79) Status: Resolved History of gout (V12.29, Z87.39) Status: Resolved History of Kidney stones, calcium oxalate (592.0, N20.0) Status: Resolved History of thyroid disorder (V12.29, Z86.39) Status: Resolved Procedures Procedure Dates Details History of Colectomy total Completed History of Hysterectomy Completed History of Lower back surgery Completed Immunization Name Dates Details Immunizations not documented Family History Name Dates Details Family history of arthritis (V17.7, Z82.61) Status: Active Family history of cerebrovascular accident (CVA) (V17.1, Z82.3) Status: Active Family history of hypertension (V17.49, Z82.49) Status: Active Name Dates Details Family history of hypertension (V17.49, Z82.49) Status: Active Social History Name Dates Details - Status: Name Dates Details Never smoker Vital Signs Date Test Result Details No Known Vitals to report Results Date Description Value Details Results not documented Plan of Care Name Dates Details Planned Observations Planned Goals not documented Instructions Name Dates Details Instructions not documented Encounters Appointment; JOSE RAFAEL MORAES NP Encounter Diagnosis: Problem not documented On: 29-Sep-2017 9:00
--- OUTSIDE RECORDS SUMMARY | 2018-11-07 21:02 | XMS REPORT | Summary of Care ---
Author Author [facility] Organization [facility] Address Unknown Phone Unavailable Encounter HQ Lucrecia(JOSH) [id number] Date(s): 01/20/16 - 01/20/16 [facility] [address] [place] [address]- Discharge Disposition: Home or Self Care Attending Physician: Hailey Zavala DO Referring Physician: Hailey Zavala DO Vital Signs No data available for this [...]
--- OUTSIDE RECORDS SUMMARY | 2018-11-07 21:02 | XMS REPORT | Summary of Care ---
Author Author [facility] Organization [facility] Address Unknown Phone Unavailable Encounter HQ Lucrecia(JOSH) [id number] Date(s): 01/27/16 - 01/27/[address] [facility] [address] [place] [address]- [phone] Discharge Disposition: Home or Self Care Attending [...]
--- OUTSIDE RECORDS SUMMARY | 2018-11-07 21:02 | XMS REPORT | Summary of Care ---
Author Author [facility] [place] Address Unknown Phone Unavailable Encounter HQ Bayr_tenisha(FIN) [id number] Date(s): 07/16/16 - 07/16/16 [facility] [place] [id number] [place] [address], [address] Luis Antonio pickard [place] [address]- [phone] Discharge Disposition: Home or Self Care Attending Physician: Jj Brown MD Vital Signs No data available for [...]
--- OUTSIDE RECORDS SUMMARY | 2018-11-07 21:02 | XMS REPORT | Summary of Care ---
Author Author [facility] Organization [facility] Address Unknown Phone Unavailable Encounter HQ Lucrecia(FIN) [id number] Date(s): 12/16/15 - 12/16/15 [facility] [address] [place] [address]- [phone] Discharge Disposition: Home or Self Care Attending Physician: Manny Whyte MD Admitting Physician: Manny Whyte MD Vital Signs No data [...] Range]: Sodium Lvl [135-145 138 mEq/L mEq/L] (12/16/15 10:08 AM) Potassium Lvl 3.9 mEq/L [3.5-5.1 mEq/L] (12/16/15 10:08 AM) Chloride Lvl [95-109 101 mEq/L mEq/L] (12/16/15 10:08 AM) CO2 [24-32 mEq/L] 30 mEq/L (12/16/15 10:08 AM) AGAP [10.0-20.0 10.9 mEq/L mEq/L] (12/16/15 10:08 AM) CHEM PANEL Most recent to 1 oldest [Reference Range]: Creatinine Lvl 1.38 mg/dL [0.50-1.40 mg/dL] (12/16/15 10:08 AM) eGFR 38 mL/min/1.73m2 1 *NA* (12/16/15 10:08 AM) BUN [7-22 mg/dL] 26 mg/dL *HI* (12/16/15 10:08 AM) Glucose Lvl [70-99 108 mg/dL mg/dL] *HI* (12/16/15 10:08 AM) Calcium Lvl 9.3 mg/dL [8.5-10.5 mg/dL] (12/16/15 10:08 AM) 1Result Comment: The eGFR is calculated [...] be mul tiplied by the estimated BMI. SPECIAL CHEMISTRY Most recent to 1 oldest [Reference Range]: Hgb A1C [<=5.6 %] 6.0 % *HI* (12/16/15 10:08 AM) Immunizations Given and Recorded Vaccine Date [...]
--- OUTSIDE RECORDS SUMMARY | 2018-11-07 21:02 | XMS REPORT | Summary of Care ---
Author Author [facility] Organization [facility] Address Unknown Phone Unavailable Encounter REAL Singer(JOSH) [id number] Date(s): 11/27/15 - 11/27/15 [facility] [address] [place] [address]- Discharge Disposition: Home Attending Physician: Hailey Zavala DO Admitting Physician: Hailey Zavala DO Vital Signs No [...] No data available for this section Results HEMATOLOGY Most recent to 1 oldest [Reference Range]: WBC [3.7-10.4 K/CMM] 12.8 K/CMM *HI* (11/27/15 3:55 PM) RBC [4.20-5.40 4.20 M/CMM M/CMM] (11/27/15 3:55 PM) Hgb [12.0-16.0 g/dL] 13.4 g/dL (11/27/15 3:55 PM) Hct [36.0-48.0 %] 40.1 % (11/27/15 3:55 PM) MCV [80.0-98.0 fL] 95.4 fL (11/27/15 3:55 PM) MCH [27.0-31.0 pg] 31.9 pg *HI* (11/27/15 3:55 PM) MCHC [32.0-36.0 33.4 g/dL g/dL] (11/27/15 3:55 PM) RDW [11.5-14.5 %] 13.4 % (11/27/15 3:55 PM) Platelet [133-450 395 K/CMM K/CMM] (11/27/15 3:55 PM) MPV [7.4-10.4 fL] 8.1 fL (11/27/15 3:55 PM) Segs [45.0-75.0 %] 79.2 % *HI* (11/27/15 3:55 PM) Lymphocytes 14.1 % [20.0-40.0 %] *LOW* (11/27/15 3:55 PM) Monocytes [2.0-12.0 5.2 % %] (11/27/15 3:55 PM) Eosinophils [0.0-4.0 0.9 % %] (11/27/15 3:55 PM) Basophils [0.0-1.0 0.6 % %] (11/27/15 3:55 PM) Segs-Bands # 10.1 K/CMM [1.5-8.1 K/CMM] *HI* (11/27/15 3:55 PM) Lymphocytes # 1.8 K/CMM [1.0-5.5 K/CMM] (11/27/15 3:55 PM) Monocytes # [0.0-0.8 0.7 K/CMM K/CMM] (11/27/15 3:55 PM) Eosinophils # 0.1 K/CMM [0.0-0.5 K/CMM] (11/27/15 3:55 PM) Basophils # [0.0-0.2 0.1 K/CMM K/CMM] (11/27/15 3:55 PM) Immunizations Given and Recorded Vaccine Date [...]
--- OUTSIDE RECORDS SUMMARY | 2018-11-07 21:02 | XMS REPORT ---
[facility] Address Unknown Phone Unavailable Care Team Providers Care Operations Leader Name Role Phone Maricarmen RIDDLE Unavailable Unavailable Payers Payer Name Policy Type Policy Number Effective Date Expiration Date Problems This patient has no known problems. Allergies, Adverse Reactions, Alerts Allergy Name Allergy Type Status Severity Reaction(s) Onset Date Inactive Date Treating Clinician Comments No Known Allergies DA Active U 2018-08-22 00:00:00 codeine DA Active MO 2018-07-04 00:00:00 tramadol DA Active U 2018-07-04 00:00:00 gabapentin DA Active U 2018-07-04 00:00:00 codeine DA Active MO 2018-06-11 00:00:00 tramadol DA Active U 2018-06-11 00:00:00 gabapentin DA Active U 2018-06-11 00:00:00 tramadol DA Active U 2018-04-30 00:00:00 gabapentin DA Active U 2018-04-30 00:00:00 codeine DA Active MO 2017-04-06 00:00:00 No Known Drug Allergies DA Active U 2010-06-18 00:00:00 Medications This patient has no known medications. Results Test Description Test Time Test Comments Text Results Atomic Results Result Comments - CT C-SPINE W/O CONTRAST 2018-08-22 03:20:00 Name: FREDA CHAU [facility] : 1945 Age/S: 73 / F [address] Unit #: [id number] Loc: [place] [address] Phys: Wander Rendon MD Acct: [id number] Dis Date: Status: REG ER PHONE #: [phone] Exam Date: 08/22/2018299 FAX #: [phone] Reason: fall EXAMS: CPT CODE: [id number] CT C-SPINE W/O CONTRAST 08481 Exam: CT of the cervical spine without contrast. History: Fall Technique: Contiguous axial CT images were obtained from the vertex through T1 without contrast. Coronal and sagittal reformatted images were also performed.One or more of the following dose reduction techniques were used: Automated exposure control, adjustment of the mA and/or kV according to patient size, and/or utilization of iterative reconstruction technique. Comparison: None Available Findings: Location: R16 Findings: Patient motion degrades evaluation Cervical spine is visualized from C1 through C7. No acute fracture in the form of loss of vertebral body height. Alignment is preserved with the exception of reversal of the normal cervical lordosis. There is extensive multilevel degenerative changes is noted throughout the cervical spine. No prevertebral soft tissue swelling is seen. There appears to be nonspecific ingested contents/debris seen within the partially visualized upper esophagus Impression: No definite CT evidence of acute cervical spine fracture or traumatic subluxation, although evaluation limited as above There appears to be nonspecific ingested contents/debris seen within the partially visualized upper esophagus at 0320 Reported and signed by: Renée Caraballo M.D. PAGE 1 Signed Report (CONTINUED) Name: FREDA CHAU [facility] : 1945 Age/S: 73 / F [address] Unit #: [id number] Loc: [place] [address] Phys: Wander Rendon MD Acct: [id number] Dis Date: Status: REG ER PHONE #: [phone] Exam Date: 08/22/2018 0300 FAX #: [phone] Reason: fall EXAMS: CPT CODE: [id number] CT C-SPINE W/O CONTRAST 88344 <Continued> CC: Wander Rendon MD; Tatiana Riddle Technologist:SUDARSHAN CAMPOS CT CTDI: DLP: Trnscb Date/Time: 08/22/2018 (319) [email or web address] Orig Print D/T: S: 08/22/2018 (323) CTDI: DLP: PAGE 2 Signed Report - XR SACRUM/COCCYX 2 + V 2018-08-22 03:09:00 FAX: Wander Rendon MD [phone] [place]: St: REG FAX: Y Tatiana Riddle MD [phone] Name: FREDA CHAU [facility] : 1945 Age/S: 73/F [address] [facility] Unit #: [id number] Loc: [place] [address] Phys: Wander Rendon MD Acct: [id number] Dis Date: Status: REG ER PHONE #: [phone] Exam Date: 08/22/20185 FAX #: [phone] Reason: fall EXAMS: CPT CODE: [id number] XR SACRUM/COCCYX 2 + V 92250 - XR SACRUM/COCCYX 2 + V, 08/22/2018 2:35 AM Reason For Examination: fall Comparison: None available Location: R16: Findings: No definite displaced sacral or coccygeal fractures are visualized although please note exam findings on frontal v iew very limited secondary to overlying bowel gas and findings on lateral view limited secondary to overlying soft tissues. Note is made of lower lumbar spine hardware. Impression: No definite displaced sacral or coccygeal fractures are visualized although please note exam findings on frontal view very limited secondary to overlying bowel gas and findings on lateral view limited secondary to overlying soft tissues. Note is made of lower lumbar spine hardware. at 0309 Reported and signed by: Renée Caraballo M.D. CC: Wander Rendon MD; Tatiana Riddle Technologist: RT HORACE Trnscrd Date/Time/By: 08/22/2018 (308) : By: [email or web address] Orig Print D/T: S: 08/22/2018 (031) PAGE 1 Signed Report - CT HEAD/BRAIN W/O CONT 2018-08-22 03:07:00 Name: FREDA CHAU [facility] : 1945 Age/S: 73 / F [address] [facility] Unit #: [id number] Loc: [place] [address] Phys: Wander Rendon MD Acct: [id number] Dis Date: Status: REG ER PHONE #: [phone] Exam Date: 08/22/2018299 FAX #: [phone] Reason: fall EXAMS: CPT CODE: [id number] CT HEAD/BRAIN W/O CONT 42622 Examination: Noncontrast head CT Indication: Fall Comparison: July 04, 2018 Location: R16 Technique: Multiple CT images of the brain were obtained from the skull base to the vertex. No intravenous contrast was administered. One or more of the following dose reduction techniques were used: Automated exposure control, adjustment of the mA and/or kV according to patient size, and/or utilization of iterative reconstruction tech nique. Findings: Exam findings limited secondary to artifact from the patient's dental work and patient motion There is prominence of the ventricles and sulci consistent with mild supratentorial cerebral volume loss. The basilar cisterns are patent. There is no intracranial hemorrhage or mass effect. No intra-axial or extra-axial fluid collections are seen. There are mild periventricular and subcortical white matter hypodensities which are nonspecific, but likely the sequelae of chronic microvascular ischemia. This appearance makes evaluation for underlying acute infarct difficult The visualized paranasal sinuses and mastoid air cells are clear. Impression: Limited exam as above 1. No acute intracranial hemorrhage or significant mass effect 2. Additional findings as above PAGE 1 Signed Report (CONTINUED) Name: FREDA CHAU [facility] : 1945 Age/S: 73 / F [address] Unit #: [id number] Loc: [place] [address] Phys: Wander Rendon MD Acct: [id number] Dis Date: Status: REG ER PHONE #: [phone] Exam Date: 08/22/2018 0300 FAX #: [phone] Reason: fall EXAMS: CPT CODE: [id number] CT HEAD/BRAIN W/O CONT 86983 <Continued> at 0307 Reported and signed by: Renée Caraballo M.D. CC: Wander Rendon MD; Tatiana Riddle Technologist:SUDARSHAN MENJIVAR CTDI: DLP: Trnscb Date/Time: 08/22/2018 (306) [email or web address] Orig Print D/T: S: 08/22/2018 (309) CTDI: DLP: PAGE 2 Signed Report GLUBED 2018-07-25 07:25:00 GLUBED (test code=GLUBED) 101 mg/dL 74-106 Performed by certified power machine operator at [facility] [id number] 06:25:00* Test Item Value Reference Range Comments AMMONIA (test code=AMM) 28 umol/L 11-32 [id number] 06:24:00* Test Item Value Reference Range Comments MAGNESIUM (test code=MAG) 1.6 mg/dL 1.8-2.4 BASIC METABOLIC [id number] 06:21:00* Test Item Value Reference Range Comments SODIUM (test code=NA) 144 mmol/L 136-145 POTASSIUM (test code=K) 3.8 mmol/L 3.5-5.1 CHLORIDE (test code=CL) 110.0 mmol/L 98-107 CARBON DIOXIDE (test code=CO2) 27.0 mmol/L 21-32 ANION GAP (test code=GAP) 10.8 10-20 GLUCOSE (test code=GLU) 95 mg/dL 74-106 BLOOD UREA NITROGEN (test code=BUN) 18 mg/dL 7-18 GLOMERULAR FILTRATION RATE (test code=GFR) > 60 mL/min >=60 Estimated GFR by using Modified MDRD formula.Chronic kidney disease is defined as either kidney damageor GFR <60 mL/min/1.73 m2 for >3 months. CREATININE (test code=CREAT) 0.70 mg/dL 0.55-1.02 Note change in reference range due to change in reagent. BUN/CREATININE RATIO (test code=BUN/CREA) 25.0 10-20 CALCIUM (test code=CA) 8.7 mg/dL 8.5-10.1 BASIC METABOLIC [id number] 06:15:00* Test Item Value Reference Range Comments SODIUM (test code=NA) 144 mmol/L 136-145 POTASSIUM (test code=K) 3.8 mmol/L 3.5-5.1 CHLORIDE (test code=CL) 110.0 mmol/L 98-107 CARBON DIOXIDE (test code=CO2) mmol/L 21-32 ANION GAP (test code=GAP) 10-20 GLUCOSE (test code=GLU) mg/dL 74-106 BLOOD UREA NITROGEN (test code=BUN) mg/dL 7-18 GLOMERULAR FILTRATION RATE (test code=GFR) mL/min >=60 CREATININE (test code=CREAT) mg/dL 0.55-1.02 BUN/CREATININE RATIO (test code=BUN/CREA) 10-20 CALCIUM (test code=CA) mg/dL 8.5-10.1 BASIC METABOLIC [id number] 06:47:00* Test Item Value Reference Range Comments SODIUM (test code=NA) 142 mmol/L 136-145 POTASSIUM (test code=K) 3.0 mmol/L 3.5-5.1 Critical results verified and read back by Nurse? CHLORIDE (test code=CL) 106.0 mmol/L 98-107 CARBON DIOXIDE (test code=CO2) 24.0 mmol/L 21-32 ANION GAP (test code=GAP) 15.0 10-20 GLUCOSE (test code=GLU) 104 mg/dL 74-106 BLOOD UREA NITROGEN (test code=BUN) 25 mg/dL 7-18 GLOMERULAR FILTRATION RATE (test code=GFR) > 60 mL/min >=60 Estimated GFR by using Modified MDRD formula.Chronic kidney disease is defined as either kidney damageor GFR <60 mL/min/1.73 m2 for >3 months. CREATININE (test code=CREAT) 0.80 mg/dL 0.55-1.02 Note change in reference range due to change in reagent. BUN/CREATININE RATIO (test code=BUN/CREA) 29.4 10-20 CALCIUM (test code=CA) 8.5 mg/dL 8.5-10.1 [id number] 06:47:00* Test Item Value Reference Range Comments MAGNESIUM (test code=MAG) 1.2 mg/dL 1.8-2.4 THYROID STIMULATING [id number] 06:47:00* Test Item Value Reference Range Comments THYROID STIMULATING HORMONE (test code=TSH) 1.470 uIU/mL 0.36-3.74 TSH REFERENCE RANGES: EUTHYROID: 0.35 - 4.3 mIU/mL HYPO : > 5.5 mIU/mL HYPER : < 0.35 mIU/mL [id number] 06:33:00* Test Item Value Reference Range Comments TROPONIN-I (test code=TROPI) <0.015 ng/mL 0-0.045 COMMENTS TO FISCAL ACCOUNTANT: COLLECT 3 HOURS AFTER PREVIOUS [id number] 02:15:00* Test Item Value Reference Range Comments TROPONIN-I (test code=TROPI) <0.015 ng/mL 0-0.045 ME COMMENTS TO FISCAL ACCOUNTANT: COLLECT 3 HOURS AFTER PREVIOUS [id number] 17:51:00* Test Item Value Reference Range Comments MAGNESIUM (test code=MAG) 1.3 mg/dL 1.8-2.4 URINALYSIS [id number] 17:14:00* Test Item Value Reference Range Comments UA COLOR (test code=COLU) TOBI YELLOW UA APPEARANCE (test code=APPU) SLIGHTLY CLOUDY CLEAR UA GLUCOSE DIPSTICK (test code=DGLUU) NEGATIVE mg/dL NEGATIVE UA BILIRUBIN DIPSTICK (test code=BILU) NEGATIVE mg/dL NEGATIVE UA KETONE DIPSTICK (test code=KETU) Negative mg/dL NEGATIVE UA SPECIFIC GRAVITY (test code=SGU) 1.024 1.001-1.035 UA BLOOD DIPSTICK (test code=CLAIR) Negative NEGATIVE UA PH DIPSTICK (test code=ZAID) 5.0 5.0-8.0 UA PROTEIN DIPSTICK (test code=PROU) Negative mg/dL NEGATIVE UA UROBILINIOGEN DIPSTICK (test code=URO) 0.2 mg/dL NEGATIVE UA NITRITE DIPSTICK (test code=ROSSY) NEGATIVE NEGATIVE UA LEUKOCYTE ESTERASE W REFLEX (test code=LEUUR) 2+ NEGATIVE UA WBC (test code=WBCU) >50 #/HPF 0-5 UA RBC (test code=RBCU) 0-2 #/HPF 0-5 UA WBC CLUMPS (test code=WBCUCL) 3-6 /HPF NONE UA EPITHELIAL CELLS (test code=EPIU) FEW per HPF FEW UA BACTERIA (test code=BACU) FEW #/HPF NONE UA HYALINE CAST (test code=HYALU) >20 #/LPF 0-5 UA MUCUS (test code=MUCU) FEW #/LPF FEW Urine Source? CatheterDRUGS OF ABUSE SCREEN [id number] 17:14:00* Test Item Value Reference Range Comments URN COCAINE (test code=COCAURN) NEGATIVE <300 ng/mL URN CANNABINOIDS (test code=CANNABURN) NEGATIVE <50 ng/mL URN AMPHETAMINE (test code=AMPHETURN) NEGATIVE <1000 ng/mL URN BARBITURATE (test code=BARBITURN) NEGATIVE <200 ng/mL URN BENZODIAZEPINE (test code=BENZOURN) POSITIVE <200 ng/mL This test provides only a preliminary test result. A morespecific alternate chemical method must be used in order toobtain a confirmed analytical result. Gas chromatography/mass spectrometry (GC/MS) is thepreferred confirmatory method. Other chemical confirmationmethods are available. Clinical consideration and professional judgment should be applied to any drug of abusetest result, particularly when preliminary positive resultsare used.Unconfirmed screening results must not be used fornon-medical purposes (e.g., employment testing, legaltesting). URN OPIATES (test code=OPIATURN) POSITIVE <300 ng/mL This test provides only a preliminary test result. A morespecific alternate chemical method must be used in order toobtain a confirmed analytical result. Gas chromatography/mass spectrometry (GC/MS) is thepreferred confirmatory method. Other chemical confirmationmethods are available. Clinical consideration and professional judgment should be applied to any drug of abusetest result, particularly when preliminary positive resultsare used.Unconfirmed screening results must not be used fornon-medical purposes (e.g., employment testing, legaltesting). URN PHENCYCLIDINE (PCP) (test code=PHENCURN) NEGATIVE <25 ng/mL URN METHADONE (test code=METHAURN) NEGATIVE <300 ng/mL Urine Source? CatheterB-TYPE NATRIURETIC [id number] 17:04:00* Test Item Value Reference Range Comments B-TYPE NATRIURETIC PEPTIDE (test code=BNP) 30.50 pgram/mL 0-100 BASIC METABOLIC [id number] 16:44:00* Test Item Value Reference Range Comments SODIUM (test code=NA) 138 mmol/L 136-145 POTASSIUM (test code=K) 3.0 mmol/L 3.5-5.1 CHLORIDE (test code=CL) 102.0 mmol/L 98-107 CARBON DIOXIDE (test code=CO2) 24.0 mmol/L 21-32 ANION GAP (test code=GAP) 15.0 10-20 GLUCOSE (test code=GLU) 149 mg/dL 74-106 BLOOD UREA NITROGEN (test code=BUN) 29 mg/dL 7-18 GLOMERULAR FILTRATION RATE (test code=GFR) 37 mL/min >=60 Estimated GFR by using Modified MDRD formula.Chronic kidney disease is defined as either kidney damageor GFR <60 mL/min/1.73 m2 for >3 months. CREATININE (test code=CREAT) 1.40 mg/dL 0.55-1.02 Note change in reference range due to change in reagent. BUN/CREATININE RATIO (test code=BUN/CREA) 20.6 10-20 CALCIUM (test code=CA) 9.3 mg/dL 8.5-10.1 [id number] 16:44:00* Test Item Value Reference Range Comments TROPONIN-I (test code=TROPI) <0.015 ng/mL 0-0.045 [id number] 16:44:00* Test Item Value Reference Range Comments ALCOHOL (test code=ALC) < 3 mg/dL 0.0-3.0 INTERPRETIVE DATA NOTE: POSITIVE SCREENING RESULTS SHOULD BE CONSIDERED PRESUMPTIVE.WHEN COLLECTED FOR MEDICAL PURPOSES ONLY. SPECIMEN WILL NOTBE COLLECTED BY CHAIN OF CUSTODY.IF A CONFIRMATION OF POSITIVE RESULTS IS DESIRED, ACONFIRMATION TEST MUST BE REQUESTED BY THE PHYSICIAN AT ANADDITIONAL CHARGE TO THE PATIENT. URINALYSIS [id number] 16:42:00* Test Item Value Reference Range Comments UA COLOR (test code=COLU) TOBI YELLOW UA APPEARANCE (test code=APPU) SLIGHTLY CLOUDY CLEAR UA GLUCOSE DIPSTICK (test code=DGLUU) NEGATIVE mg/dL NEGATIVE UA BILIRUBIN DIPSTICK (test code=BILU) NEGATIVE mg/dL NEGATIVE UA KETONE DIPSTICK (test code=KETU) Negative mg/dL NEGATIVE UA SPECIFIC GRAVITY (test code=SGU) 1.024 1.001-1.035 UA BLOOD DIPSTICK (test code=CLAIR) Negative NEGATIVE UA PH DIPSTICK (test code=ZAID) 5.0 5.0-8.0 UA PROTEIN DIPSTICK (test code=PROU) Negative mg/dL NEGATIVE UA UROBILINIOGEN DIPSTICK (test code=URO) 0.2 mg/dL NEGATIVE UA NITRITE DIPSTICK (test code=ROSSY) NEGATIVE NEGATIVE UA LEUKOCYTE ESTERASE W REFLEX (test code=LEUUR) 2+ NEGATIVE UA WBC (test code=WBCU) >50 #/HPF 0-5 UA RBC (test code=RBCU) 0-2 #/HPF 0-5 UA WBC CLUMPS (test code=WBCUCL) 3-6 /HPF NONE UA EPITHELIAL CELLS (test code=EPIU) FEW per HPF FEW UA BACTERIA (test code=BACU) FEW #/HPF NONE UA HYALINE CAST (test code=HYALU) >20 #/LPF 0-5 UA MUCUS (test code=MUCU) FEW #/LPF FEW Urine Source? CatheterDRUGS OF ABUSE SCREEN [id number] 16:42:00* Test Item Value Reference Range Comments URN COCAINE (test code=COCAURN) <300 ng/mL URN CANNABINOIDS (test code=CANNABURN) <50 ng/mL URN AMPHETAMINE (test code=AMPHETURN) <1000 ng/mL URN BARBITURATE (test code=BARBITURN) <200 ng/mL URN BENZODIAZEPINE (test code=BENZOURN) <200 ng/mL URN OPIATES (test code=OPIATURN) <300 ng/mL URN PHENCYCLIDINE (PCP) (test code=PHENCURN) <25 ng/mL URN METHADONE (test code=METHAURN) <300 ng/mL Urine Source? CatheterURINALYSIS [id number] 16:40:00* Test Item Value Reference Range Comments UA COLOR (test code=COLU) TOBI YELLOW UA APPEARANCE (test code=APPU) SLIGHTLY CLOUDY CLEAR UA GLUCOSE DIPSTICK (test code=DGLUU) NEGATIVE mg/dL NEGATIVE UA BILIRUBIN DIPSTICK (test code=BILU) NEGATIVE mg/dL NEGATIVE UA KETONE DIPSTICK (test code=KETU) Negative mg/dL NEGATIVE UA SPECIFIC GRAVITY (test code=SGU) 1.024 1.001-1.035 UA BLOOD DIPSTICK (test code=CLAIR) Negative NEGATIVE UA PH DIPSTICK (test code=ZAID) 5.0 5.0-8.0 UA PROTEIN DIPSTICK (test code=PROU) Negative mg/dL NEGATIVE UA UROBILINIOGEN DIPSTICK (test code=URO) 0.2 mg/dL NEGATIVE UA NITRITE DIPSTICK (test code=ROSSY) NEGATIVE NEGATIVE UA LEUKOCYTE ESTERASE W REFLEX (test code=LEUUR) 2+ NEGATIVE UA WBC (test code=WBCU) per HPF 0-5 Urine Source? CatheterDRUGS OF ABUSE SCREEN [id number] 16:40:00* Test Item Value Reference Range Comments URN COCAINE (test code=COCAURN) <300 ng/mL URN CANNABINOIDS (test code=CANNABURN) <50 ng/mL URN AMPHETAMINE (test code=AMPHETURN) <1000 ng/mL URN BARBITURATE (test code=BARBITURN) <200 ng/mL URN BENZODIAZEPINE (test code=BENZOURN) <200 ng/mL URN OPIATES (test code=OPIATURN) <300 ng/mL URN PHENCYCLIDINE (PCP) (test code=PHENCURN) <25 ng/mL URN METHADONE (test code=METHAURN) <300 ng/mL Urine Source? CatheterPROTHROMBIN [id number] 16:31:00* Test Item Value Reference Range Comments PROTHROMBIN TIME PATIENT (test code=PTP) 21.1 seconds 9.0-14.0 INTERNATIONAL NORMAL RATIO (test code=INR) 1.7 0.8-1.2 The therapeutic range for oral anticoagulant therapy formost indications is an international normalized ratio (INR)of between 2.0 and 3.0. The recommended therapeutic INRrange for various clinical situations is listed below: Clinical Situation INR range Pulmonary e mbolism treatment (2.0-3.0)Venous thrombosis treatmentVenous thrombosis prophylaxis (high risk surgery)Prevention of systemic embolism from: Acute myocardial infarction Valvular heart disease Atrial fibrillation Mechanical prosthetic heart valves (2.5-3.5) IS PATIENT ON ANTICOAGULANTS? NTHROMBOPLASTIN TIME [id number] 16:31:00* Test Item Value Reference Range Comments THROMBOPLASTIN TIME PARTIAL (test code=PTT) 32.6 seconds 25.0-36.5 IS PATIENT ON ANTICOAGULANTS? NCBC W/O [id number] 16:26:00* Test Item Value Reference Range Comments WHITE BLOOD CELL (test code=WBC) 9.1 K/mm3 4.5-12.5 RED BLOOD CELL (test code=RBC) 3.27 mill/mm3 3.7-5.2 HEMOGLOBIN (test code=HGB) 11.0 gram/dL 11.5-15.5 HEMATOCRIT (test code=HCT) 35.2 % 36.0-46.0 MEAN CELL VOLUME (test code=MCV) 107.6 fL 80-98 MEAN CELL HGB (test code=MCH) 33.6 picogram 27.0-33.0 MEAN CELL HGB CONCETRATION (test code=MCHC) 31.3 gram/dL 33.0-36.0 RED CELL DISTRIBUTION WIDTH (test code=RDW) 18.6 % 11.6-16.2 PLATELET COUNT (test code=PLT) 473 K/mm3 150-450 MEAN PLATELET VOLUME (test code=MPV) 10.7 fL 6.7-11.0 - CT C-SPINE W/O [id number] 16:17:00 Name: FREDA CHAU [facility] : 1945 Age[facility]S: 72 [facility] [address] [facility]: [id number] Loc: [place] [address] Phys: Corey Fernandes MD Acct: [id number] Dis Date: Status: REG ER PHONE #: [phone] Exam Date: 07/04/2018 1548 FAX #: [phone] Reason: neck apin fall EXAMS: CPT CODE: [id number] CT C-SPINE W/O CONTRAST [id number] REASON FOR EXAM: neck apin fall EXAM ORDER DATE: 07/04/2018 3:40 PM Ordering M.D.: Corey Fernandes MD PROCEDURE: - CT C-SPINE W/O CONTRAST FINDINGS: CT images of the cervical spine were obtained without IV contrast at 2.5mm. Reconstructed coronal and sagittal images were also provided. Dose reduction techniques were applied The osseous structures are intact with large anterior osteophytes seen throughout the cervical spine. The central canal is patent. Severe narrowing of C4-5, C5-6, and C6-7 disc spaces. IMPRESSION: Moderate to severe degenerative changes in the lower cervical spine. No acute findings. at 1617 Reported and signed by: Bello Desouza M.D. CC: Tatiana Riddle; Corey Fernandes MD Technologist:Karol Naidu RT(R); JOSE RAFAEL Thurston CTDI: DLP: Trnscb Date/Time: 07/04/2018 (1617) Moncho Orig Print D/T: S: 07/04/2018 (5249) CTDI: DLP: PAGE 1 Signed Report - XR CHEST 1 [id number] 16:05:00 FAX: Tatiana Rosen MD [phone] [place]: B St: REG FAX: Corey Fernandes MD [phone] Name: FREDA CHAU [facility] : 1945 Age/S: 72/F [address] Unit #: [id number] Loc: [place] [address] Phys: Corey Fernandes MD Acct: [id number] Dis Date: Status: REG ER PHONE #: [phone] Exam Date: 07/04/2018 1600 FAX #: [phone] Reason: SYNCOPE EXAMS: CPT CODE: [id number] XR CHEST 1 V 24597 REASON FOR EXAM: SYNCOPE EXAM ORDER DATE: 07/04/2018 3:40 PM Ordering M.D.: Corey Fernandes MD LA OCEDURE: - XR CHEST 1 V COMPARISON: 04/30/2018 FINDI NGS: Portable AP frontal view of the chest obtained at 3:56 PM shows maurice r lungs. There is no evidence of consolidation. There is no evidence of ef fusion. The heart size is minimally enlarged. Pulmonary vasculatures are u nremarkable. IMPRESSION: No cardiomegaly and atelectasis at the left base. at 1 085 Reported and signed by: Bello Desouza M.D. CC: Tatiana Riddle Rajan MD Technologist: [place] CARTER RT(R) Trnscrd Date/Time/By: (9735) : By: Moncho Orig Print D/T: S: 07/04/2018 (0172) PAGE 1 Signed Report - CT HEAD/BRAIN W/O [id number] 15:55:00 Name: FREDA CHAU [facility] : 1945 Age/S: 72 / F [address] Unit #: [id number] Loc: [place] [address] Phys: Corey Fernandes MD Acct: [id number] Dis Date: Status: REG ER PHONE #: [phone] Exam Date: 07/04/2018 1548 FAX #: [phone] Reason: Syncope EXAMS: CPT CODE: [id number] CT HEAD/BRAIN W/O CONT 19454 REASON FOR EXAM: Syncope EXAM ORDER DATE: 07/04/2018 3:40 PM Ordering M.D.: Corey Fernandes MD PROCEDURE: - CT HEAD/BRAIN W/O CONT COMPARISON: 04/30/2018 FINDINGS: CT images of the brain were obtained without IV contrast. Dose reduction techniques were applied. The brain parenchyma is within normal limits. The mena-white matter delineation is unremarkable. The ventricles, cisterns, and sulci are unremarkable. There is no evidence of hemorrhage, mass, mass effect. There is no evidence of acute or old infarct. The calvarium is intact. IMPRESSION: Unremarkable brain. at 1555 Reported and signed by: Bello Desouza M.D. CC: Tatiana Riddle; Corey Fernandes MD Technologist:Karol Naidu RT(R); JOSE RAFAEL Thurston CTDI: DLP: Trnscb Date/Time: 07/04/2018 (1555) Moncho Orig Print D/T: S: 07/04/2018 (1550) CTDI: DLP: PAGE 1 Signed Report MRI SPINE LUMBAR WO 2018-03-12 15:07:00 [place] [address] Patient Name: FREDA CHAU MR #: [id number] : 1945 Age/Sex: 72/F Req #: [id number] Adm Physician: Ordered by: TATIANA RIDDLE MD Report #: [id number] Location: MRI Room/Bed: Procedure: [id number] MRI/MRI SPINE LUMBAR WO Exam Date: Exam Time: REPORT STATUS: Signed EXA MINATION: MRI of the lumbar spine without contrast HISTORY: Low back pain radiating to the right lower extremity for several weeks, status post fall COMPARISON: None. TECHNIQUE: Sagittal T1, T2, STIR; axial T2 and proton densit y. FINDINGS: It is assumed that there are 5 lumbar vertebrae. Curvature/Alignment: Normal lordosis. Subtle left-sided curvature. Vert ebrae: No evidence of recent fracture, infection, or neoplasm. Chronic endpla te degenerative changes from L1 to S1. Modic type I endplate degenerative sandhu ges with bone marrow edema on the right side at L3-L4. Conus: Normal, term inating at L1 Cauda equina: Circumferential narrowing of the thecal sac/ca uda equina nerve roots at L3-L4 due to spinal stenosis. Lower thoracic: Mild degenerative changes without stenoses Paraspinal soft tissues: Severe atrophy of the paraspinal folds mainly from L2 through sacrum. Degenerat brendon changes: L1-L2: Mild symmetric disc bulge and facet arthrosis. Mild left foraminal narrowing. L2-L3: Asymmetric to the right disc bulge and facet arthrosis. No significant stenoses L3-L4: Symmetric disc bu lge, ligamenta flava thickening and facet processes. Arthroses with prominent osteophyte medial to the right facet, contributing to severe canal stenoses. M ild bilateral foraminal stenoses. L4-L5: Interbody and posterior fusion . Postsurgical decompressive laminotomies. No canal or foraminal stenoses. L5-S1: Interbody fusion. No canal or foraminal stenoses Sacroiliac bam ints: Mild degenerative changes bilaterally IMPRESSION: 1. Severe d egenerative spinal canal and mild foraminal stenosis at L3-L4. 2. Solid inte rbody and posterior fusion at L4-L5 without stenosis. 3. Solid interbody fusi on at L5-S1 without stenosis. 4. Modic Type 1 endplate degenerative changes w ith subchondral bone marrow edema on the right side at L3-L4. Signed by: Dr. Sally Bajwa M.D. on 03/12/2018 3:12 PM Dictated By: SALLY BAJWA MD 11 Transcribed By: SOFY CLEANING on 03/12/181511 COPY TO: TATIANA RIDDLE MD MRI HIP RIGHT WO 2018-03-12 11:03:00 [place] [address] Patient Name: FREDA CAHU MR #: [id number] : 1945 Age/Sex: 72/F Req #: [id number] Adm Physician: Ordered by: TATIANA RIDDLE MD Report #: [id number] Location: MRI Room/Bed: Procedure: [id number] MRI/ MRI HIP RIGHT WO Exam Date: Exam Time: REPORT STATUS: Signed FINAL REPORT SAMANTHA HNIQUE: Magnetic resonance imaging of the RIGHT HIP was performed WITHOUT inje cted contrast. Motion artifact partially limits sensitivity and specificity of the exam. The coronal STIR images are available through a web-based [employer]. HISTORY: Pain, fell COMPARISON: None available. FINDINGS: Met allic susceptibility artifacts and inhomogeneous fat saturation at the visuali zed lumbosacral spine, partially limits regional evaluation. Bone: The bone marrow signal is heterogeneous, compatible with red marrow conversion, no specific evidence of a focal bone marrow replacing abnormality. No osteonec rosis or acute fracture. Femoroacetabular Joint: Acetabular labrum: Focal contour irregularity, attenuation and detachment of the anterosuperior labrum; however, on the large [id number] images the changes appear similar of the left hip. Articular Cartilage: Low-grade erosion of the weightbea ring cartilage. Muscle and tendons: The visualized tendons appear intact. Soft tissues: Otherwise, unremarkable. Other: Mild degenerative pillo nges of the pubic symphysis. IMPRESSION: 1. No acute fracture. 2. Focal degenerative changes of the anterosuperior acetabular labrum; however, t hese changes appear similar on the contralateral left side on the large field- of-view images. Therefore, this may reflect a chronic incidental finding. Signed by: Dr. Adelso Camarillo D.O., M.M.M. on 03/27/2018 3:15 PM Dictated By: ADELOS CAMARILLO DO 1515 T ranscribed By: MAMADOU on 03/27/18 [id number] COPY TO: TATIANA RIDDLE MD
[2018-11-07 21:23] LABS: BASOPHILS % 0.5 % (0.0-1.0); EOSINOPHILS # (AUTO) 0.5 (0.0-0.4); HEMATOCRIT 29.4 % (34.2-44.1); HEMOGLOBIN 9.8 g/dL (12.0-16.0); LYMPHOCYTES # (AUTO) 2.6 (1.0-3.2); LYMPHOCYTES % 40.1 % (18.0-39.1); MEAN CORPUSCULAR HEMOGLOBIN 32.9 pg (28-32); MEAN CORPUSCULAR HGB CONC 33.3 g/dL (31-35); MEAN CORPUSCULAR VOLUME 98.7 fL (81-99); MONOCYTES # (AUTO) 0.5 (0.2-0.8); MONOCYTES % 7.5 % (4.4-11.3); NEUTROPHILS # (AUTO) 2.9 (2.1-6.9); NEUTROPHILS % 43.7 % (38.7-80.0); PLATELET COUNT 248 x10e3/uL (140-360); RED BLOOD COUNT 2.98 x10e6/uL (3.6-5.1); RED CELL DISTRIBUTION WIDTH 13.6 % (11.7-14.4)
[2018-11-07 21:43] LABS: ALBUMIN 3.6 g/dL (3.5-5.0); ALBUMIN/GLOBULIN RATIO 1.4 (0.8-2.0); ANION GAP 10.7 mmol/L (8-16); CALCIUM 10.6 mg/dL (8.4-10.2); CREATININE, SERUM 0.93 mg/dL (0.57-1.11); POTASSIUM 3.7 mmol/L (3.5-5.1)
[2018-11-07 21:50] LABS: CREATINE KINASE MB 0.8 ng/mL (0-5.0)
--- NOTE | 2018-11-07 22:30 | Diagnostic Imaging Report ---
History: Left arm and neck numbness for 3 days Comparison studies:None Technique: Axial images were obtained from the brain and cervical spine. Coronal and sagittal images reconstructed from the axial data. Intravenous contrast: None Dose modulation, iterative reconstruction, and/or weight based adjustment of the mA/kV was utilized to reduce the radiation dose to as low as reasonably achievable. Findings: Head CT: Scalp/skull: No abnormalities. No fractures, blastic or lytic lesions. Brain sulci: Mildly prominent. Ventricles: Mildly prominent. No hydrocephalus. Extra-axial spaces: No masses. No fluid collections. Parenchyma: Few hypodensities periventricular white matter, nonspecific and most commonly seen with mild chronic microvascular ischemic changes. No masses, hemorrhage, acute or chronic cortical vascular insults. Sellar/suprasellar region: No abnormalities. Craniocervical junction: Patent foramen magnum. No Chiari one malformation. Atherosclerotic calcifications of the carotid siphons. Cervical spine CT: Fractures: None. Soft tissues: No gross abnormalities. Atlantoaxial articulation: Degenerative changes given by decreased predental space, sclerosis and marginal osteophytes. Alignment: Normal lordosis. No scoliosis. Cervicomedullary junction: No abnormalities. Patent foramen magnum. Vertebrae: No infection or neoplasm. Degenerative changes: Decreased intervertebral space with endplate sclerosis from C4 through C7. At C4-5, diffuse disc osteophyte complex, uncinate hypertrophy and facet hypertrophy results in mild canal stenosis, mild right and moderate left foraminal narrowing. At C5-6, diffuse disc osteophyte complex and bilateral uncinate process hypertrophy results in mild canal stenosis and moderate bilateral foraminal narrowing, more prominent left. At C6-7, bilateral loss process hypertrophy results in mild right and moderate left foraminal. Incidental findings: None. Impression: Head CT: 1. No acute abnormality. Cervical spine CT: 1. No acute abnormalities. Multilevel moderate degenerative foraminal narrowing at C4-5 and C6-7 on the left and C5-6 bilaterally. Other degenerative changes as described above. 2. Cannot exclude ligament, spinal cord and or vascular abnormalities on the basis of this examination. Signed by: DR Abdullahi Mishra M.D. on 11/07/2018 10:26 PM
[2018-11-07 23:16] VITALS: BP 120/64
== END 2018-11-07 23:31 | disposition home or self-care (01) ==
LOC: ER 20:55
DX: M54.12 Radiculopathy, cervical region (principal); Z88.8 Allergy status to other drugs, medicaments and biological substances
CPT/HCPCS: 36415; 70450; 72125; 80053; 82550; 82553; 84484; 85025; 93005; 99284